=== PATIENT | female | born 1975 | race Caucasian/White ===

== ENCOUNTER 2018-05-18 09:04 | Outpatient (REF) | payer MEDICAID, SELFPAY ==
[2018-05-20 18:16] LABS: Tissue Transglutaminase Ab IgA <1.2 U/mL; Tissue Transglutaminase Ab IgG <1.2 U/mL
== END 2018-05-18 09:24 ==
LOC: NCHCN 09:04
PROVIDERS: PCP Family Medicine; Visit Provider Family Medicine
DX: K58.9 Irritable bowel syndrome, unspecified (principal); K21.9 Gastro-esophageal reflux disease without esophagitis
CPT/HCPCS: 83516

== ENCOUNTER 2018-08-31 12:43 | Outpatient (REF) | payer MEDICAID, SELFPAY ==
[2018-08-31 20:06] LABS: HCT 40.6 % (36.0-46.0); Mean Corp. HGB Concentration 34.5 g/dL (32.0-36.0); Mean Corpuscular Volume 95.8 fL (80-95); Mean Platelet Volume 11.2 fL (8.0-11.0); Platelet Count 333 x1000/uL (130-400); RBC 4.24 m/cumm (4.00-5.20); RBC Distribution Width 14.8 % (11.7-14.6); White Blood Cell Count 8.38 k/cumm (4.4-10.8)
[2018-08-31 20:16] LABS: ALT 16 U/L (12-78); AST 15 U/L (15-37); Albumin 4.3 g/dL (3.4-5.0); Alkaline Phosphatase 110 U/L (46-116); Anion Gap 13.8 mmol/L (3-11); BUN 6 mg/dL (7-18); Bilirubin, Total 0.5 mg/dL (0.2-1.0); CO2 21.2 mmol/L (21.0-32.0); CREATININE 0.73 mg/dL (0.55-1.02); Calcium 9.3 mg/dL (8.5-10.1); Chloride 104 mmol/L (98-107); Glucose 91 mg/dL (70-100); Lipase 90 U/L (73-393); Potassium 4.8 mmol/L (3.5-5.1); Sodium 139 mmol/L (136-145); Total Protein 7.3 g/dL (6.4-8.2)
== END 2018-08-31 13:03 ==
LOC: NCHCN 12:43
PROVIDERS: PCP Family Medicine; Visit Provider Family Medicine
DX: R10.11 Right upper quadrant pain (principal)
CPT/HCPCS: 80053; 83690; 85027

== ENCOUNTER 2019-04-19 09:18 | Outpatient (REF) | payer MEDICAID, SELFPAY ==
[2019-04-19 17:30] LABS: HCT 39.3 % (36.0-46.0); HGB 13.4 g/dL (12.0-15.5); Mean Corp. HGB Concentration 34.1 g/dL (32.0-36.0); Mean Corpuscular Hemoglobin 33.4 pg (27.0-33.0); Platelet Count 311 x1000/uL (130-400); RBC 4.01 m/cumm (4.00-5.20); RBC Distribution Width 13.7 % (11.7-14.6); White Blood Cell Count 9.37 k/cumm (4.4-10.8)
[2019-04-19 17:42] LABS: ALT 13 U/L (14-59); AST 13 U/L (15-37); Albumin 4.1 g/dL (3.4-5.0); Alkaline Phosphatase 79 U/L (46-116); Anion Gap 10.3 mmol/L (3-11); BUN 7 mg/dL (7-18); Bilirubin, Total 0.6 mg/dL (0.2-1.0); CO2 23.7 mmol/L (21.0-32.0); CREATININE 0.78 mg/dL (0.55-1.02); Chloride 109 mmol/L (98-107); Glucose 94 mg/dL (74-106); Potassium 4.7 mmol/L (3.5-5.1); Sodium 143 mmol/L (136-145); Total Protein 6.9 g/dL (6.4-8.2)
== END 2019-04-19 09:38 ==
LOC: NCHCN 09:18
PROVIDERS: PCP Family Medicine; Visit Provider Family Medicine
DX: R25.2 Cramp and spasm (principal); R06.02 Shortness of breath
CPT/HCPCS: 80053; 85027

== ENCOUNTER 2019-07-04 19:45 | Outpatient (REF) | payer MEDICAID, SELFPAY ==
[2019-07-04 19:12] LABS: TSH 1.87 uIU/mL (0.36-3.74)
[2019-07-06 05:06] LABS: Vitamin D 25 Total 18.5 ng/ml (30-100)
== END 2019-07-04 20:05 ==
LOC: NCHCN 19:45
PROVIDERS: PCP Family Medicine; Visit Provider Nurse Practitioner Psychiatric/Mental Health
DX: F41.8 Other specified anxiety disorders (principal)
CPT/HCPCS: 82306; 84443

== ENCOUNTER 2019-10-04 10:44 | Outpatient (REF) | payer MEDICAID, SELFPAY ==
[2019-10-05 10:01] LABS: HIV-1/2 Ag & Ab Screen Negative (Negative)
[2019-10-05 10:07] LABS: Hepatitis C Ab w Rflx HCV PCR Negative (Negative)
== END 2019-10-04 11:04 ==
LOC: NCHCN 10:44
PROVIDERS: PCP Family Medicine; Visit Provider Family Medicine
DX: F11.20 Opioid dependence, uncomplicated (principal); Z11.4 Encounter for screening for human immunodeficiency virus [HIV]; Z11.59 Encounter for screening for other viral diseases; Z11.3 Encounter for screening for infections with a predominantly sexual mode of transmission
CPT/HCPCS: 86803; 87389

== ENCOUNTER 2020-10-02 09:39 | Outpatient (REF) | payer MEDICAID, SELFPAY ==
--- NOTE | 2020-10-02 09:00 | SKI_PTH ---
PATIENT: Kelsey Dietz LOC: [facility] U#:[id number] AGE/SX: 45/F ROOM: RE10/02/[address]: Rhiannon Dorantes : 1975 BED: DIS: 10/02/2020 SPEC #: [id number] RECD: 10/02/20 16:02 STATUS: SUSHIL REED #: [id number] MYLES: 10/02/20 09:[address]: Rhiannon Dorantes DEPT: Surgical Specimen RECD BY: Annie Weinstein Tissues: 1 - SKIN CYST/TAG/DEBRIDEMENT 2 - SKIN CYST/TAG/DEBRIDEMENT Procedures: GROSS AND MICRO LEVEL 3 SKIN LEVEL 4 Comments: [id number]
== END 2020-10-02 09:40 | disposition home or self-care (01) ==
LOC: NCHCN 09:39
PROVIDERS: PCP Family Medicine; Visit Provider Family Medicine
DX: B07.8 Other viral warts (principal); A63.0 Anogenital (venereal) warts; L91.8 Other hypertrophic disorders of the skin; N89.8 Other specified noninflammatory disorders of vagina
CPT/HCPCS: 88304; 88305

== ENCOUNTER 2020-10-14 01:17 | Outpatient (CLI) | payer MEDICAID, SELFPAY ==
--- NOTE | 2020-10-14 | DI.MRI_ITS ---
Exam(s) MR CERVICAL SPINE WO EXAM: MR CERVICAL SPINE WO CLINICAL HISTORY: PARESTHESIA,R20.9,BILAT ARM WEAKNESS,R53.1,ACHINESS TECHNIQUE: Multiplanar multisequence MRI of the cervical spine was performed without intravenous con trast. COMPARISON: There are no plain films of the cervical spine available time this MRI interpretation FINDINGS: CERVICOMEDULLARY JUNCTION: Intact with no evidence of cerebellar tonsillar ectopia. No obvious abnor mality of the odontoid process. No evidence of Chiari 1 malformation. CERVICAL SPINAL CORD: There is no abnormal signal in the cervical spinal cord and no evidence of foca l cord atrophy nor focal cord swelling. No evidence of demyelinating plaques in the cervical spinal cord OSSEOUS:There are no cervical fractures evident. No significant osseous lesions in the cervical vert ebrae. INDIVIDUAL LEVELS: C2-3: No disc herniation nor central canal stenosis. No foraminal stenosis. No facet arthropathy. C3-4: No disc herniation nor central canal stenosis.No facet arthropathy. No foraminal stenosis. C4-5: No disc herniation nor central canal stenosis.No facet arthropathy. No foraminal stenosis C5-6: Normal disc height and signal. No disc herniation or central canal stenosis. No foraminal jose elias nosis. No facet arthropathy C6-7: Normal disc height and signal. No disc herniation or central canal stenosis. No facet arthrop athy. No foraminal stenosis. C7-T1: No disc herniation nor central canal stenosis. No facet arthropathy.No foraminal stenosis. IMPRESSION: 1. No significant findings on this MRI scan of the cervical spine. 2. No evidence of disc herniation, canal stenosis, or foraminal stenosis. 3. No evidence of demyelinating disease in the cervical spinal cord. DATA REPOSITORY:
== END 2020-10-14 01:37 ==
PROVIDERS: PCP Family Medicine; Visit Provider Family Medicine
DX: R20.0 Anesthesia of skin (principal); M79.601 Pain in right arm; M79.602 Pain in left arm; M62.81 Muscle weakness (generalized)
CPT/HCPCS: 72141

== ENCOUNTER 2020-10-30 10:07 | Outpatient (REF) | payer MEDICAID, SELFPAY ==
--- NOTE | 2020-10-30 08:20 | PAPFT_PTH ---
PATIENT: Kelsey Dietz LOC: [facility] #:[id number] AGE/SX: 45/F ROOM: RE10/30/[address]: Rhiannon Dorantes : 1975 BED: DIS: 10/30/2020 SPEC #: [id number] RECD: 10/31/20 13:01 STATUS: SUSHIL RELaney #: [id number] MYLES: 10/30/20 08:[address]: Rhiannon Dorantes DEPT: [facility] Cytology RECD BY: Annie Weinstein Tissues: 1 - CX/ENDOCX FOR PAP SMEARS Procedures: PAP THIN PREP/UVM Screening HPV DNA PROBE Comments: [id number] (CHLAMYDIA/GC)
[2020-11-01 14:29] LABS: Chlamydia Result Negative (Negative); GC Result Negative (Negative)
== END 2020-10-30 10:08 | disposition home or self-care (01) ==
LOC: NCHCN 10:07
PROVIDERS: PCP Family Medicine; Visit Provider Family Medicine
DX: Z11.3 Encounter for screening for infections with a predominantly sexual mode of transmission (principal); Z12.4 Encounter for screening for malignant neoplasm of cervix; Z11.51 Encounter for screening for human papillomavirus (HPV)
CPT/HCPCS: 87491; 87591; 88142; 87624

== ENCOUNTER 2021-04-14 16:56 | Outpatient (REF) | payer MEDICAID, SELFPAY ==
[2021-04-14 18:41] LABS: HCT 35.9 % (36.0-46.0); HGB 12.4 g/dL (11.2-15.7); MCH 32.2 pg (27.0-33.0); MCHC 34.5 % (32.0-36.0); MCV 93.2 fL (80-95); MPV 11.7 fL (8.0-11.0); Platelet Count 305 10^3/uL (130-400); RBC 3.85 10^6/uL (3.93-5.22); RDW 13.9 % (11.7-14.6); RDW-SD 47.4 fL; WBC 8.71 10^3/uL (4.4-10.8)
[2021-04-14 18:55] LABS: ALT 16 U/L (14-59); AST 12 U/L (15-37); Albumin 4.3 g/dL (3.4-5.0); Alkaline Phosphatase 72 U/L (46-116); Anion Gap 13.3 mmol/L (3-11); BUN 6 mg/dL (7-18); Bilirubin, Total 0.5 mg/dL (0.2-1.0); CO2 22.7 mmol/L (21.0-32.0); CREATININE 0.8 mg/dL (0.55-1.02); Calculated LDL 78 mg/dL (<100); Chloride 107 mmol/L (98-107); Cholesterol 137 mg/dL (<200); Glucose 87 mg/dL (74-106); HDL Cholesterol 43 mg/dL (40-60); Potassium 3.6 mmol/L (3.5-5.1); Sodium 143 mmol/L (136-145); Total Protein 7.1 g/dL (6.4-8.2); Triglyceride 81 mg/dL (<150)
[2021-04-14 19:35] LABS: Amylase 73 U/L (25-115)
[2021-04-17 02:00] LABS: Vitamin D 25 Total 15.3 ng/mL (30-100)
== END 2021-04-14 16:57 | disposition home or self-care (01) ==
LOC: NCHCN 16:56
PROVIDERS: PCP Family Medicine; Visit Provider Family Medicine
DX: R10.9 Unspecified abdominal pain (principal); Z87.19 Personal history of other diseases of the digestive system
CPT/HCPCS: 80053; 80061; 82306; 85027; 82150

== ENCOUNTER 2021-04-29 00:12 | Outpatient (CLI) | payer MEDICAID, SELFPAY ==
[2021-04-29] MEDS: Breeza Beverage 473 ML BTL PO ×2 (09:08→09:09)
[2021-04-29] MEDS: Omnipaque 350 MG/ML 50 ML BTL PO (09:08)
[2021-04-29] MEDS: Omnipaque 350 MG/ML 100 ML BTL IJ (10:01)
[2021-04-29] MEDS: Normal Saline Flush 10 ML SYR IVP (10:02)
--- NOTE | 2021-04-29 10:10 | DI.CT_ITS ---
Exam(s) CT ABDOMEN PELVIS W EXAM: CT ABDOMEN PELVIS W CLINICAL HISTORY: HX PANCREATITIS Z87.19 ABD PAIN R10.9 TECHNIQUE: Imaging Protocol: Axial computed tomography images with coronal and sagittal reformatted images were created and reviewed CONTRAST MATERIAL: Intravenous: Omnipaque 350 Contrast volume:100 mL Oral: Yes COMPARISON: No exams were available for comparison FINDINGS: ABDOMEN: Lung Bases: Normal where visualized. Liver: Normal density. No measurable mass. Portal, Superior Mesenteric, and Splenic Veins: Unremarkable. Gallbladder and Biliary Tract: Status post cholecystectomy. No significant biliary ductal dilatation . Pancreas: There are calcifications throughout the pancreas suggestive of chronic pancreatitis. There is a 0.9 cm calcification in the head of the pancreas. It may be intraductal. There is dilatation of the pancreatic duct within the distal body and tail. The pancreatic duct proximal to the calcific ation is normal in caliber. Spleen: Normal. Adrenals: No masses seen. Kidneys: Normal size, contour and axis. There is a 5 mm nonobstructing calculus in the lower pole of the left kidney. There is a 7 mm simple cyst in the superior pole of the left kidney. No follow-up is recommended. Abdominal Aorta: Abdominal portion non-dilated. Atherosclerosis. Bowel: No obstruction or bowel wall thickening. Appendix is unremarkable. Peritoneal Cavity: No ascites, collection or mesenteric inflammatory response. No free air. Lymph Nodes: Within normal limits. Bones: Within normal limits for the patient's age. Soft Tissues: Unremarkable. PELVIS: Bladder: Symmetric distention, no gross wall thickening. Reproductive Organs: There is an IUD in good position. Reproductive organs are otherwise unremarkabl e. Lymph Nodes: Within normal limits. Bones: Within normal limits for the patient's age. IMPRESSION: 1. Calcifications within the pancreas suggestive of a chronic pancreatitis. There is a 0.9 cm calcif ication in the head of the pancreas. It may be intraductal. There is dilatation of the pancreatic d uct distally in the body and tail. The pancreatic duct proximal to the calcification is normal calib er. MRCP may be considered for further evaluation. 2. Status post cholecystectomy. No biliary ductal dilatation. RADIATION DOSE DELIVERED: 727.88mGy.cm Total DLP DATA REPOSITORY: All CT scans at this facility are submitted to the National Radiology Data Registry (NRDR) Dose Index Registry (DIR) with the [employer] (ACR). RADIATION OPTIMIZATION: All CT scans at this facility use at least one of these dose optimization te chniques: automated exposure control; mA and/or kV adjustment per patient size (includes targeted exa ms where dose is matched to clinical indication); or iterative reconstruction.
== END 2021-04-29 00:32 ==
PROVIDERS: PCP Family Medicine; Visit Provider Family Medicine
DX: R10.9 Unspecified abdominal pain (principal); Z87.19 Personal history of other diseases of the digestive system; K86.89 Other specified diseases of pancreas
CPT/HCPCS: 74177; J3490; Q9967

== ENCOUNTER 2021-08-20 09:15 | Outpatient (REF) | payer MEDICAID, SELFPAY ==
[2021-08-21 14:02] LABS: Vitamin D 25 Total 27.6 ng/mL (30-100)
[2021-08-21 14:46] LABS: Vitamin B12 154 pg/mL (193-986)
[2021-08-21 18:19] LABS: Folate 6.3 ng/mL (See Note)
== END 2021-08-20 09:16 | disposition home or self-care (01) ==
LOC: NCHCN 09:15
PROVIDERS: PCP Family Medicine; Visit Provider Family Medicine
DX: E55.9 Vitamin D deficiency, unspecified (principal)
CPT/HCPCS: 82306; 82607; 82746

== ENCOUNTER 2021-10-15 20:44 | Outpatient (REF) | payer MEDICAID, SELFPAY ==
[2021-10-15 19:17] LABS: HCT 37.6 % (36.0-46.0); HGB 12.9 g/dL (11.2-15.7); MCH 31.9 pg (27.0-33.0); MCHC 34.3 % (32.0-36.0); MCV 93 fL (80-95); MPV 11.1 fL (8.0-11.0); Platelet Count 268 10^3/uL (130-400); RBC 4.05 10^6/uL (3.93-5.22); RDW 13.7 % (11.7-14.6); RDW-SD 47.3 fL; WBC 8.25 10^3/uL (4.4-10.8)
[2021-10-15 20:13] LABS: Vitamin B12 469 pg/mL (193-986)
[2021-10-15 20:19] LABS: Folate > 20.0 ng/mL (8.6-20.0)
[2021-10-22 09:28] LABS: Methylmalonic Acid 0.11 nmol/mL (<=0.40)
== END 2021-10-15 20:45 | disposition home or self-care (01) ==
LOC: NCHCN 20:44
PROVIDERS: PCP Family Medicine; Visit Provider Family Medicine
DX: E53.8 Deficiency of other specified B group vitamins (principal); R53.83 Other fatigue
CPT/HCPCS: 80186; 85027; 82607; 82746

== ENCOUNTER 2022-08-25 02:16 | Outpatient (CLI) | payer MEDICAID, SELFPAY ==
--- NOTE | 2022-08-25 07:30 | DI.MAMMO_ITS ---
Exam(s) MAMMO SCREENING EXAM: MAMMO SCREENING CLINICAL HISTORY: SCREENING, Z12.39 TECHNIQUE: Mammograms were interpreted according to the usual protocol including computer analysis w [employer] CAD system, tomosynthesis and C-view imaging. COMPARISON: 2018 FINDINGS: The breasts are composed of heterogeneously dense fibroglandular densities, Breast Density category C . No suspicious masses or suspicious microcalcifications are seen. No skin thickening or abnormal axillary lymph nodes are seen. There has been no significant change from prior exam. IMPRESSION: BI-RADS Category 1, Negative mammogram. Yearly screening mammography is recommended. Breast Density Category C, heterogeneously Dense. The mammogram demonstrates the patient's breast tissue is dense. Dense breast tissue is very common a nd is not abnormal but dense breast tissue can make it harder to find cancer on a mammogram. Also, de nse breast tissue may increase breast cancer risk. This information about the result of the mammogram report was provided to the patient to raise their awareness. Use this report when you speak with the patient about their risks for breast cancer, which includes their family history. At that time, you may recommend additional screening tests (Ultrasound or MRI) as they might be useful based on their r isk. A negative radiographic report should not delay biopsy if a dominant or clinically suspicious mass is present. Up to ten percent of cancers are not identified on mammography. A negative report may reinforce clinical impression. Adenosis and dense breasts may obscure an underlying neoplasm. False positive reports average 6 to 10%.
== END 2022-08-25 02:36 ==
LOC: DI 02:17
PROVIDERS: PCP Family Medicine; Visit Provider Family Medicine
DX: Z12.31 Encounter for screening mammogram for malignant neoplasm of breast (principal)
CPT/HCPCS: 77063; 77067

== ENCOUNTER 2023-04-21 19:42 | Outpatient (REF) | payer MEDICAID, SELFPAY ==
[2023-04-21 20:24] LABS: MCH 31.2 pg (27.0-33.0); MCHC 34.3 % (32.0-36.0); MCV 91 fL (80-95); Platelet Count 268 10^3/uL (130-400); RBC 3.85 10^6/uL (3.93-5.22); RDW 14.5 % (11.7-14.6); RDW-SD 48.1 fL; WBC 9.61 10^3/uL (4.4-10.8)
[2023-04-21 20:58] LABS: Ferritin 26 ng/mL (8-252); TSH (W/Ref FT4) 1.81 uIU/mL (0.36-3.74); Vitamin B12 827 pg/mL (193-986)
[2023-04-21 21:00] LABS: Folate > 20.0 ng/mL (8.6-20.0)
== END 2023-04-21 19:43 | disposition home or self-care (01) ==
LOC: NCHCN 19:42
PROVIDERS: PCP Family Medicine; Visit Provider Family Medicine
DX: D64.9 Anemia, unspecified (principal)
CPT/HCPCS: 85027; 82607; 82728; 82746; 84443

== ENCOUNTER 2024-01-31 01:20 | Outpatient (CLI) | payer MEDICAID, SELFPAY ==
--- NOTE | 2024-01-31 | DI.MAMMO_ITS ---
Exam(s) MAMMO SCREENING EXAM: MAMMO SCREENING CLINICAL HISTORY: SCREENING, Z12.39 TECHNIQUE: Mammograms were interpreted according to the usual protocol including computer analysis w [employer] CAD system, tomosynthesis and C-view imaging. COMPARISON: 2017 and 2022 FINDINGS: The breasts are composed of heterogeneously dense fibroglandular densities, Breast Density category C . No suspicious masses or suspicious microcalcifications are seen. No skin thickening or abnormal axillary lymph nodes are seen. There has been no significant change from prior exams. IMPRESSION: BI-RADS Category 1, Negative mammogram. Yearly screening mammography is recommended. Breast Density Category C, heterogeneously Dense. The mammogram demonstrates the patient's breast tissue is dense. Dense breast tissue is very common a nd is not abnormal but dense breast tissue can make it harder to find cancer on a mammogram. Also, de nse breast tissue may increase breast cancer risk. This information about the result of the mammogram report was provided to the patient to raise their awareness. Use this report when you speak with the patient about their risks for breast cancer, which includes their family history. At that time, you may recommend additional screening tests (Ultrasound or MRI) as they might be useful based on their r isk. A negative radiographic report should not delay biopsy if a dominant or clinically suspicious mass is present. Up to ten percent of cancers are not identified on mammography. A negative report may reinforce clinical impression. Adenosis and dense breasts may obscure an underlying neoplasm. False positive reports average 6 to 10%.
== END 2024-01-31 01:40 ==
LOC: DI 01:21
PROVIDERS: PCP Family Medicine; Visit Provider Family Medicine
DX: Z12.31 Encounter for screening mammogram for malignant neoplasm of breast (principal)
CPT/HCPCS: 77063; 77067

== ENCOUNTER 2024-04-19 14:04 | Outpatient (REF) | payer MEDICAID, SELFPAY ==
--- OUTSIDE RECORDS SUMMARY | 2024-04-19 14:09 | XMS_ITS | Encounter Summary ---
[place] [address] Care Team Providers Care Business Enterprise Officer Name Role Phone Rhiannon Dorantes MD Primary Care Provider [phone] Encounter Details Date Type Department Care Team (Late st Contact Info) Description 07/21/2022 Telephone [place] [phone] Dejah Tovar Social History Tobacco Use Types Packs/Day Years Used Date Smoking Tobacco: Every Day Cigarettes 0.8 25 Smokeless Tobacco: Never Alcohol Use Standard Drinks/Week Comments No 0 (1 standard drink = 0.6 oz pur e alcohol) Sex and Gender Information Value Date Recorded Sex Assigned at Not on file Gender Identity Not on file Sexual Orientation Not on file documented as of this encounter Miscellaneous Notes * Telephone Encounter - Dejah Tovar - 07/21/2022 7:48 AM EST Inbound/Outbound: OUTBOUND Spoke to Patient/Left Message: LVM Notes: LVM for patient to schedule gif or telel with ERIS Thomas per nursing Return calls can be handled by: Any Gastro Mess Cook documented in this encounter Plan of Treatment Not on file documented as of this encounter Visit Diagnoses Not on filedocumented in this encounter Care Teams Business Enterprise Officer Relationship Specialty Start Date End Date Rhiannon Dorantes MD [facility] [address] [place] [address] PCP - General 04/15/10 documented as of this encounter
--- OUTSIDE RECORDS SUMMARY | 2024-04-19 14:09 | XMS_ITS | Encounter Summary ---
Author Organization [facility] Address [address] [place] [address] Care Team Providers Care News Intern Name Role Phone Rhiannon Dorantes MD Primary Care Provider [phone] Encounter Details Date Type Department Care Team (Late st Contact Info) Description 11/18/2016 Results Only [facility] [phone] Rhiannon Dorantes MD [address] [phone] Social History Tobacco Use Types Packs/Day Years Used Date Smoking Tobacco: Never Assessed Comments Unknown Sex and Gender Information Value Date Recorded Sex Assigned at Not on file Legal Sex Female 18:05 EST Gender Identity Not on file Sexual Orientation Not on file documented as of this encounter Plan of Treatment Not on file documented as of this encounter Procedures Procedure Name Priority Date/Time Associated Diagnosis Comments PAP TEST- RESULT ONLY Routine 11/18/2016 0:00 EDT documented in this encounter Results * PAP TEST- RESULT ONLY (11/18/2016 0:00 EDT) Pathology Report: CYTOPATHOLOGY REPORT Reports generated via electronic interface contain original data; however they are lacking the format of the original report. Caution should be taken when reading/interpreti ng unformatted reports. Name: ? KELSEY DIETZ ? Accession #: ? [id number] ? : ? 1975 (Age: 41) ??F ?Collect Date: ? 11/18/2016 ? Location: ? [facility] ? Receive Date: ? 11/20/2016 ? Provider: RHIANNON DORANTES MD Copy to: ? Final Report SPECIMEN ADEQUACY ? Satisfactory for Evaluation - transformation zone component present GENERAL CATEGORIZATION ? Negative for Intraepithelial Lesion or Malignancy ?? Last Menstrual Period: 2016 Hormonal/Contracep tive status: None Specimen/Source: ??Pap Test, Cervix, ThinPrep Imaging System with manual evaluation Document reviewed and electronically signed by: ? Kenna Connell, CT(ASCP) ? Report ??Date: 12/01/2016 12:34 HPV with Pap Test ? Date Ordered: ? 12/01/2016 ? Status: ?? Signed Out ?Date Complete: ? 12/02/2016 ? By: ??System Interface ? Date Reported: ? 12/02/2016 ? Interpretation RESULT: Negative for HPV. No E6 or E7 mRNA is detected from HPV types 16,18,31,33,35, 39,45,51,52,56,58, 59,66, and 68 by job recruiter mediated amplification. Comments Document reviewed and electronically signed by: ? System Interface ? Report date: 12/02/2016 By the signature above, the attending physician certifies that he/she has personally conducted a gross and/or microscopic examination of the described specimens and rendered or confirmed the above diagnosis. End of Report [facility] 11/18/2016 11/20/2016 us Rhiannon Dorantes MD PATHOLOGY ORDERABLES Final Resul t [facility] [address] [place] [address] documented in this encounter Visit Diagnoses Not on filedocumented in this encounter Care Teams News Intern Relationship Specialty Start Date End Date Rhiannon Dorantes MD [address] [place] [phone] PCP - General 03/28/15 documented as of this encounter
--- OUTSIDE RECORDS SUMMARY | 2024-04-19 14:09 | XMS_ITS | Clinical Summary ---
Author Organization [facility] Address [address] [place] [address] Care Team Providers Care Family Service Center Director Name Role Phone Rhiannon Dorantes MD Primary Care Provider [phone] Social History Tobacco Use Types Packs/Day Years Used Date Smoking Tobacco: Never Assessed Comments Unknown Sex and Gender Information Value Date Recorded Sex Assigned at Not on file Legal Sex Female 18:05 EST Gender Identity Not on file Sexual Orientation Not on file Plan of Treatment Health Maintenance Due Date Last Done Comments Hepatitis B Vaccine (1 of 3 - 19+ 3-dose series) 04/29 COVID-19 Vaccine ( season) 2024 Hepatitis C Screen Completed 10/04/2019 Procedures Procedure Name Priority Date/Time Associated Diagnosis Comments HEPATITIS C AB W REFLEX TO HCV RNA BY PCR Routine 10/04/2019 9:45 EDT from Last 3 Months or Most Recently Relevant to Health Maintenance Results * HEPATITIS C AB W REFLEX TO HCV RNA BY PCR (10/04/2019 9:45 EDT) Hep C Antibody Negative Negative 10/05/2019 10:02 EDT [facility] Blood VENOUS BLOOD / Unknown 10/04/2019 9:45 EDT 10/04/2019 21:08 EDT us Provider Outr Resulting Lab CHEMISTRY & BLOOD GA S ORDERABLES Final Result [facility] [address] [place] [address] from Last 3 Months or Most Recently Relevant to Health Maintenance Insurance MEDICAID ACO [place] Care Teams Family Service Center Director Relationship Specialty Start Date End Date Rhiannon Dorantes MD [address] [place] [phone] PCP - General 03/28/15
--- OUTSIDE RECORDS SUMMARY | 2024-04-19 14:09 | XMS_ITS | Referral Summary ---
Author Organization [facility] Address [address] [place] [address] Care Team Providers Care Embroidery Specialist Name Role Phone Rhiannon Dorantes MD Primary Care Provider [phone] Social History Tobacco Use Types Packs/Day Years Used Date Smoking Tobacco: Never Assessed Comments Unknown Sex and Gender Information Value Date Recorded Sex Assigned at Not on file Legal Sex Female 18:05 EST Gender Identity Not on file Sexual Orientation Not on file Plan of Treatment Not on file Procedures Procedure Name Priority Date/Time Associated Diagnosis Comments HEPATITIS C AB W REFLEX TO HCV RNA BY PCR Routine 10/04/2019 9:45 EDT from Last 3 Months or Most Recently Relevant to Health Maintenance Results * HEPATITIS C AB W REFLEX TO HCV RNA BY PCR (10/04/2019 9:45 EDT) Hep C Antibody Negative Negative 10/05/2019 10:02 EDT [facility] Blood VENOUS BLOOD / Unknown 10/04/2019 9:45 EDT 10/04/2019 21:08 EDT us Provider Outr Resulting Lab CHEMISTRY & BLOOD GA S ORDERABLES Final Result [facility] [address] [place] [address] from Last 3 Months or Most Recently Relevant to Health Maintenance Insurance MEDICAID ACO [place] Care Teams Embroidery Specialist Relationship Specialty Start Date End Date Rhiannon Dorantes MD [address] [place] [phone] PCP - General 03/28/15
--- OUTSIDE RECORDS SUMMARY | 2024-04-19 14:09 | XMS_ITS | Encounter Summary ---
Author Organization [facility] Address [address] [place] [address] Care Team Providers Care Domestic Freight Forwarder Name Role Phone Unavailable Primary Care Provider Unavailabl e Encounter Details Date Type Department Care Team (Late st Contact Info) Description 05/27/[address] [facility] - [facility] [address] [place] [address] Rhiannon Dorantes MD [address] [phone] Social History Tobacco Use Types [...] Procedure Name Priority Date/Time Associated Diagnosis Comments HPV DETECTION, HIGH RISK TYPES Routine 05/27/2009 10:18 EST CYTOPATHOLOGY Routine 05/27/2009 0:00 EST documented in this encounter Results * HUMAN PAPILLOMA VIRUS DNA TEST (05/27/2009 10:18 EST) Specimen Description Cervix, ThinPrep vial [facility] Result Negative for HPV types 16, 18, 31, 33, 35, 39, 45, 51, 52, 56, 58, 59, and 68. [facility] Report Status Final 06/05/2009 [facility] 05/27/2009 10:1 8 EST 05/30/2009 10:18 EST us Rhiannon Dorantes MD MICROBIOLOGY - GENERAL ORDERABLE S Final Result [facility] [address] [place] [address] * CYTOPATHOLOGY (05/27/2009 0:00 EST) Pathology Report: CYTOPATHOLOGY REPORT ? Reports generated via electronic interface contain original data; ? however they are lacking the format of the original report. ? Caution should be taken when reading/interpreti ng unformatted reports. ? Name: ? KELSEY DIETZ ? Accession #: ? [id number] ? : ? 1975 (Age: 34) ??F ?Collect Date: ? 05/27/2009 ? Location: ? [facility] ? Receive Date: ? 05/28/2009 ? Provider: ?RHIANNON TORIBIO MD ? Copy to: ? Specimen/Source: ?Pap Test, Cervix/Endocervix, ThinPrep Imaging System ? with manual evaluation ? Last Menstrual Period: ? Hormonal/Contracep tive Status: ? Intrauterine device ? Other: ? HPVDX - HPV testing requested regardless of diagnosis on current ThinPrep Pap ?? test. ? SPECIMEN ADEQUACY ? Satisfactory for Evaluation ? - transformation zone component present ? GENERAL CATEGORIZATION ? Negative for Intraepithelial Lesion or Malignancy ? Document reviewed and electronically signed by: ? Cat Nash, SCT(ASCP) ? Report Date: ??05/29/2009 11:10 ? End of Report ? [facility] 05/27/2009 05/28/2009 us Rhiannon Dorantes MD PATHOLOGY ORDERABLES Final Resul t Performing Organization Address [facility]/State[facility] Phone Number [facility] [address] [place] [address] documented in this encounter Visit Diagnoses Not on filedocumented in this encounter
--- OUTSIDE RECORDS SUMMARY | 2024-04-19 14:09 | XMS_ITS | Encounter Summary ---
Author Organization [facility] Address [address] [place] [address] Care Team Providers Care Bulk Gas Specialist Name Role Phone Rhiannon Dorantes MD Primary Care Provider [phone] Encounter Details Date Type Department Care Team (Latest Contact Info) Description 10/31/2020 Lab Requisition [facility] Pathology & Laboratory Medicine - [address] [address] Rhiannon Dorantes MD [address] [place] [phone] Encounter for general adult medical examination without abnormal findings; Encounter for screening for malignant neoplasm of cervix; Encounter for screening for human papillomavirus (HPV) Social History Tobacco Use Types Packs/Day Years [...] Name Priority Date/Time Associated Diagnosis Comments PAP TEST Today 10/30/2020 8:20 EDT Encounter for general adult medical examination without abnormal findings Encounter for screening for malignant neoplasm of cervix Encounter for screening for human papillomavirus (HPV) CHLAMYDIA/N. GONORRHOEAE AMPLIFIED NUCLEIC ACID, THINPREP Today 10/30/2020 8:20 EDT HPV DNA DETECTION WITH GENOTYPING, PCR Today 10/30/2020 8:20 EDT Encounter for general adult medical examination without abnormal findings Encounter for screening for malignant neoplasm of cervix Encounter for screening for human papillomavirus (HPV) documented in this encounter Results * HUMAN PAPILLOMAVIRUS (HPV) DETECTION-HIGH RISK TYPES (10/30/2020 8:20 EDT) HPV other High Risk types, PCR Negative Negative 11/12/2020 15:06 EDT [facility] Comment:No E6 or E7 mRNA is detected from HPV types 16,18,31,33,35,39,45,51,52,56,58,59,66, and 68 by solvent mixer mediated amplification. Papanicolaou smear specimen (specimen) CERVIX UTERI STRUCTURE / Unknown 10/30/2020 8:20 EDT 11/11/2020 11:59 EDT us Rhiannon Dorantes MD MICROBIOLOGY - GENERAL ORDERABLE S Final Result [facility] [address] [place] [address] * PAP TEST (10/30/2020 8:20 EDT) Specimens A. Cervix and/or Endocervix , ThinPrep Imaging System with Manual Evaluation 11/12/2020 15:06 [facility] Specimen Adequacy Satisfactory for Evaluation - transformation zone component present 11/12/2020 15:06 [facility] General Categorization Negative for intraepithelial lesion or malignancy 11/12/2020 15:06 [facility] Attestation . 11/12/2020 15:06 [facility] at 1506 Clinical History See below 11/13/19 15:06 [facility] HPV The result for the Human Papillomavirus (HPV) Detection-High Risk Types is Negative. No E6 or E7 mRNA is detected from HPV types 16,18,31,33,35,39 ,45,51,52,56,58,5 9,66, and 68 by solvent mixer mediated amplification.Kimberly ting was performed on specimen [id number] and was resulted on 11/12/2020 1502 EDT by CAROLINA, LAB INSTRUMENT RESULTS IN 11/12/2020 15:06 EDT [facility] Performing Lab [facility] 11/12/2020 15:06 EDT [facility] Scanned Images 11/12/2020 15:06 EDT [facility] Papanicolaou smear specimen (specimen) CERVIX UTERI STRUCTURE / Unknown 10/30/2020 8:20 EDT 11/01/2020 16:12 EDT Rhiannon Dorantes MD PATHOLOGY ORDERABLES Final Resul t [facility] [address] [place] [address] * CHLAMYDIA/N. GONORRHOEAE AMPLIFIED RNA, THINPREP (10/30/2020 8:20 EDT) Neisseria gonorrhoeae Result Negative Negative 11/01/2020 14:23 EDT [facility] Chlamydia trachomatis Result Negative Negative 11/01/2020 14:23 EDT [facility] Papanicolaou smear specimen (specimen) CERVIX UTERI STRUCTURE / Unknown 10/30/2020 8:20 EDT 11/01/2020 8:23 EDT Rhiannon Dorantes MD MICROBIOLOGY - GENERAL ORDERABLE S Final Result [facility] [address] [place] [address] documented in this encounter Visit Diagnoses Diagnosis Encounter for general adult medical examination without abnormal findings Unspecified general medical examination Encounter for screening for malignant neoplasm of cervix Screening for malignant neoplasm of the cervix Encounter for screening for human papillomavirus (HPV) Special screening examination for human papillomavirus (HPV) documented in this encounter Care Teams Bulk Gas Specialist Relationship Specialty Start Date End Date Rhiannon Dorantes MD [address] [place] [phone] PCP - General 03/28/15 documented as of this encounter
--- OUTSIDE RECORDS SUMMARY | 2024-04-19 14:09 | XMS_ITS | Encounter Summary ---
Author Organization [facility] [place] [address] Care Team Providers Care Timekeeping Supervisor Name Role Phone Rhiannon Dorantes MD Primary Care Provider [phone] Reason for Visit * Auth/Cert Specialty Diagnoses / Procedures Referred By Contac t Referred To Contact Diagnoses hx pancreatitis. Procedures PRO ENDOSCOPIC US EXAM, ESOPH UPPER EUS- ENDOSCOPIC ULTRASOUND Referral ID Status Reason Start Date Expiration Date Visits Re quested Visits Authorized [id number] 1 1 Encounter Details Date Type Department Care Team (Latest Contact Info) Description 10/01/2021 7:53 AM EDT - 10/01/2021 9:44 AM EDT Hospital Encounter [place] [address] Chan Raya MD [facility] [place] [address] Discharge Disposition: Home Social History Tobacco Use Types Packs/Day Years Used Date Smoking Tobacco: Every Day Cigarettes 0.8 25 Smokeless Tobacco: Never Alcohol Use Standard Drinks/Week Comments No 0 (1 standard drink = 0.6 oz pur e alcohol) Sex and Gender Information Value Date Recorded Sex Assigned at Not on file Gender Identity Not on file Sexual Orientation Not on file documented as of this encounter Last Filed Vital Signs Vital Sign Reading Time Taken Comments Blood Pressure 130/80 10/01/2021 8:09 AM EDT Pulse 84 10/01/2021 8:09 AM EDT Temperature 36.2 ??C (97.2 ??F) 10/01/2021 8:09 AM ED T Respiratory Rate 16 10/01/2021 8:09 AM EDT Oxygen Saturation 99% 10/01/2021 8:09 AM EDT Inhaled Oxygen Concentration - - Weight 68.9 kg (152 lb) 10/01/2021 8:09 AM EDT Height 160 cm (5' 3) 10/01/2021 8:09 AM EDT Body Mass Index 26.93 10/01/2021 8:09 AM EDT documented in this encounter Medications at Time of Discharge Medication Sig Dispensed Refills Start Date End Date lansoprazole (PREVACID) 30 mg Capsule, Delayed Release(E.C.) TAKE 1 CAPSULE BY MOUTH EVERY DAY 04/19/2021 ergocalciferoL, vitamin D2, (vitamin D2) 50,000 unit Capsule 3 times a week for 12 weeks 04/21/2021 valACYclovir (VALTREX) 1 gram Tablet TAKE 1 TABLET BY MOUTH DAILY TO PREVENT FREQUENT COLD SORES 05/28/2021 ProAir HFA 90 mcg/actuation HFA Aerosol Inhaler INHALE TWO PUFFS BY MOUTH EVERY 4 HOURS NEEDED WITH SPACER 04/30/2021 Dulera 200-5 mcg/actuation HFA Aerosol Inhaler INHALE 2 PUFFS BY MOUTH TWICE DAILY 05/06/2021 buprenorphine-naloxone (SUBOXONE) 8-[address] 2 mg of opiate under the tongue daily. Creon 24,000-76,000 -120,000 unit Capsule, Delayed Release(E.C.)Indication s:Acute pancreatitis, unspecified complication status, unspecified pancreatitis type TAKE TWO CAPSULES BY MOUTH BEFORE MEALS AND ONE CAPSULE BEFORE SNACKS. MAX 10 CAPSULES 300 capsule 3 09/29/2021 02/24/2022 LIPASE/PROTEASE/AMYLASE (PANCREASE ORAL) Take by mouth. 1 to 3 capsules, 12 to 14 times per day 06/24/2022 documented as of this encounter Progress Notes * Tanna Hunter 08/19/2021 9:06 AM EDT Kelsey Dietz [id number] Diagnosis/Indication: hx pancreatitis. 1. Have you ever had a/an Upper EUS before? No If yes, did you have any problems with the procedure? No What type of sedation was used: None 2. Do you take any blood thinners or have you been diagnosed with a bleeding disorder that increases your risk of bleeding with procedures? No 3. Do you have a Pacemaker or Defibrillator device? No 4. Are you a diabetic? No 5. Do you have any Allergies to Eggs, Latex or Medications? Yes: EDH 6. Do you take any Oral Iron Supplements (Including multi-vitamins)? Yes (Multivitamin) 7. Do you have a history of three or more abdominal surgeries? No 8. Have you had a problem with sedation or anesthesia? No 9. Do you use a c-pap machine or oxygen tank? Neither 10. Do you take prescription narcotic pain medications, including suboxone or methodone? Yes suboxone 11. Do you have a preference regarding the gender of your provider? No Preference 12. Is there any other information you would like to us to note for the provider and nursing team who will perform your case? No 13. Say to patient: You must have a responsible green party who will drive you to your procedure, stay [place] for the entire duration of your procedure, and drive you home from your procedure? *Please Verify the height and weight, and adjust if height and/or weight have changed* There is no height or weight on file to calculate BMI. *Delete if not needed* Height: 5' 5 Weight: 142 lb BMI: 23.6 Age:46 y.o. documented in this encounter H&P Notes * Chan Raya MD - 10/01/2021 8:43 AM EDT Procedure: eus Indication: chronic pancreatitis History of Present Illness: Kelsey Dietz is a 46 y.o. woman with chronic pancreatitis here for eus Patient Active Problem List Diagnosis Code ??? IBS (irritable bowel syndrome) K58.9 Medications: Reviewed in EDH Allergies Allergen Reactions ??? Amoxicillin Trihydrate Other (See Comments) swelling of face Social History/Family History: Reviewed in EDH. No changes Exam: Patient Vitals for the past 24 hrs: Temp Pulse Resp BP SpO2 O2 Device 10/01/21 0809 36.2 ??C (97.2 ??F) 84 16 130/80 99 % RA Axox3, nad Anicteric, MMM CTAB RRR, no m/r/g abd soft nt nd +bs Assessment and Plan: Proceed with EGD: EUS: ASA Grade: ASA 2 - Patient with mild systemic disease with no functional limitations Mallampati score:II (soft palate, uvula, fauces visible) Sedation plan: MAC Risks and benefits of the procedure were discussed with the patient. Consent has been signed. Chan Raya MD documented in this encounter Miscellaneous Notes * Op Note - Chan Raya MD - 10/01/2021 8:56 AM EDT DH Operative Note Patient Name: Kelsey Dietz : [id number] MR#: [id number] Case Date: 10/01/2021 Surgeon: Surgeon(s) and Role: * Chan Raya MD - Primary Procedure(s): UPPER EUS- ENDOSCOPIC ULTRASOUND EGD WITH BIOPSY (WRVU 2.49) Please see Provation report for details. documented in this encounter Plan of Treatment Not on file documented as of this encounter Procedures Procedure Name Priority Date/Time Associated Diagnosis Comments SURGICAL PATHOLOGY REPORT Routine 10/01/2021 9:00 AM EDT SPECIMEN TO PATHOLOGY Routine 10/01/2021 9:00 AM EDT Upper Gi Endoscopy, Biopsy ([id number]) 10/01/2021 8:50 AM EDT Acute pancreatitis, unspecified complication status, unspecified pancreatitis type Endoscopic Us Exam, Esoph ([id number]) 10/01/2021 8:50 AM EDT Acute pancreatitis, unspecified complication status, unspecified pancreatitis type UPPER EUS-ENDOSCOPIC ULTRASOUND Routine 10/01/2021 8:35 AM EDT documented in this encounter Results * Surgical Pathology Report (10/01/2021 9:00 AM EDT) Final Diagnosis [id number] ? Location: 4T; EA07; A The signing pathologist has (i) examined the relevant preparation(s) for the specimen(s) and (ii) rendered or confirmed the diagnosis(es). . ?Surgical Pathology DIAGNOSIS A - Gastric bx r/o H-pylori, biopsy: - ??Gastric antral and fundic gland mucosa within normal limits. - H. pylori organisms are not seen. Electronically signed by: ?Isabelle TAVERAS PhD, Evi Verified: ??10/02/2021 14:35 ??Pathologist Performed at: ??-[facility] Dept. of Pathology, [place], [place] SPECIMEN(S) SUBMITTED A - Gastric bx r/o H-pylori, biopsy (1) CLINICAL INFORMATION Epigastric pain SPECIMEN PROCESSING A - Labeled/Fixativ e: Gastric biopsies R/O H. pylori, formalin. Quantity/Size: Two, 0.3 cm. Tissue Description: Soft, clark-pink tissues. Sections/Proces sing: Submitted en toto ??in 1 cassette labeled A1. ??pps 10/02/2021 2:35 PM EDT [facility] GI Biopsy 10/01/2021 9:00 AM EDT 10/01/2021 9:00 AM EDT Chan Raya MD PATHOLOGY/CYTOLOGY O PERFECTO [facility] [place] [address] * Specimen to Pathology (10/01/2021 9:00 AM EDT) AP Specimen 10/01/2021 9:00 AM EDT 10/01/2021 9:00 AM EDT Narrative [facility] - 10/01/2021 9:00 AM EDT Specimen requisition ordered. ??Separate Pathology report to follow Chan Raya MD PATHOLOGY/CYTOLOGY Haja RDALEIDABLES [facility] [place] [address] * UPPER EUS-ENDOSCOPIC ULTRASOUND (10/01/2021 8:35 AM EDT) UPPER ENDOSCOPIC ULTRASOUND [facility] Endoscopy Procedure Date: 10/01/2021 8:35 AM ? Patient Name: Kelsey Dietz ? [facility]: [id number] ? Date of : 1975 ? Age: 46 ? Order #: [id number] ? Instrument Name: [id number] ? Procedure: ? Upper EUS Indications: ? Suspected chronic pancreatitis Providers: ? Nellie Hill ? YONATAN Melendez, Javier Redd MD: ?Rhiannon Dorantes MD Medicines: ? Propofol per Anesthesia Complications: ? No immediate complications. Procedure: ? Pre-Anesthesia Assessment: ? - Prior to the procedure, a History ? and Physical was performed, and ? patient medications and allergies ? were reviewed. The patient is ? competent. The risks and benefits ? of the procedure and the sedation ? options and risks were discussed ? with the patient. All questions ? were answered and informed consent ? was obtained. Patient ? identification and proposed ? procedure were verified by the ? physician in the pre-procedure ? area. Mental Status Examination: ? alert and oriented. Airway ? Examination: normal oropharyngeal ? airway and neck mobility. ? Respiratory Examination: clear to ? auscultation. CV Examination: ? normal. Prophylactic Antibiotics: ? The patient does not require ? prophylactic antibiotics. Prior ? Anticoagulants: The patient has ? taken no anticoagulant or ? antiplatelet agents. ASA Grade ? Assessment: II - A patient with ? mild systemic disease. After ? reviewing the risks and benefits, ? the patient was deemed in ? satisfactory condition to undergo ? the procedure. The anesthesia plan ? was to use monitored anesthesia ? care (MAC). Immediately prior to ? administration of medications, the ? patient was re-assessed for ? adequacy to receive sedatives. The ? heart rate, respiratory rate, ? oxygen saturations, blood pressure, ? adequacy of pulmonary ventilation, ? and response to care were monitored ? throughout the procedure. The ? physical status of the patient was ? re-assessed after the procedure. ? The procedure, indications, ? benefits, risks and alternatives ? were explained to the patient. ? Specifically discussed were ? potential complications including, ? but not limited to, bleeding, ? perforation, infection, missing a ? cancer, and adverse medication ? reactions.The Endosonoscope was ? introduced through the and advanced ? to the. The Endoscope was ? introduced through the and advanced ? to the. The patient tolerated the ? procedure well. ? Findings: ? ENDOSCOPIC FINDING: : ? The examined esophagus was normal. ? Patchy mild inflammation characterized by erythema ? was found in the gastric antrum. Biopsies were taken ? with a cold forceps for histology and Helicobacter ? pylori testing. ? The examined duodenum was normal. ? ENDOSONOGRAPHIC FINDING: : ? Two hyperechoic foci measuring up to nine mm in ? diameter suggestive of stones were found in the ? pancreatic head. ? The pancreatic parenchyma had hyperechoic foci ? without shadowing and hyperechoic strands. The ? pancreatic duct had duct dilation. The pancreatic ? duct measured up to 6 mm in diameter. ? There was no sign of significant endosonographic ? abnormality in the common bile duct. The maximum ? diameter of the duct was 5 mm. ? Moderate Sedation: ? Not applicable - See Anesthesia documentation Impression: ?- Normal esophagus. ? - Gastritis. Biopsied. ? - Normal examined duodenum. ? - Findings suggestive of pancreatic ? stones were identified in the ? pancreatic head (One Major A, 2 ? minor [place]). ? - There was no sign of significant ? pathology in the common bile duct. Recommendation: ?- Discharge patient to home. ? - Resume previous diet. ? - Await path results. ? - Return to GI office. Discuss ? option of ESWL for symptomatic ? pancreaticolithiasis ? Attending Participation: ? I personally performed the entire procedure. ? Chan Raya, 10/01/2021 9:22:46 AM Number of Addenda: 0 Note Initiated On: 10/01/2021 8:35 AM PROVATION 10/01/2021 8:35 AM EDT Rhiannon Dorantes MD GENERAL SURGICAL ORD ERABLES PROVATION documented in this encounter Visit Diagnoses Not on filedocumented in this encounter Administered Medications Inactive Administered Medications - up to 3 most recent administrations Medication Order MAR Action Action Date Dose Rate Site lactated ringers infusion 100 mL/hr, Intravenous, CONTINUOUS, Starting on Wed10/01/21 at 0830, Until Wed10/01/21 at 0936, Endoscopy (Day of Procedure) Restarted 10/01/2021 9:03 AM EDT New Bag 10/01/2021 8:19 AM EDT 100 mL/hr 100 mL/hr documented in this encounter Active and Recently Administered Medications Times are shown in EDT. Continuous Medication Order 09/29/2021 09/30/2021 10/01/2021 lactated ringers infusion (CANCELED) 100 mL/hr, Intravenous, CONTINUOUS, Starting on Wed10/01/21 at 0830, Until Wed10/01/21 at 0936, Endoscopy (Day of Procedure) 0819 (New Bag - Prov ider: Desiree Sharma RN)0902 (Paused - Provider: Shannon Matson CRNA - Comment: Switch to gravity)0903 (Restarted - Provider: Shannon Matson CRNA) documented in this encounter Care Teams Timekeeping Supervisor Relationship Specialty Start Date End Date Rhiannon Dorantes MD [address] [place] [address] PCP - General 04/15/10 documented as of this encounter
--- OUTSIDE RECORDS SUMMARY | 2024-04-19 14:09 | XMS_ITS | Encounter Summary ---
Author Organization [facility] Address [facility] [place] [address] Care Team Providers Care Addresser Name Role Phone Rhiannon Dorantes MD Primary Care Provider [phone] Reason for Visit * Reason Comments Medication Refill Encounter Details Date Type Department Care Team (Late st Contact Info) Description 02/24/2022 [place] [address] Cathy Thomas PA [facility] [place] [address] Acute pancreatitis, unspecified complication status, unspecified pancreatitis type Social History Tobacco Use Types Packs/Day Years [...] documented as of this encounter Visit Diagnoses Diagnosis Acute pancreatitis, unspecified complication status, unspecified pancreatitis type documented in this encounter Care Teams Addresser Relationship Specialty Start Date End Date Rhiannon Dorantes MD [address] [place], [place] [id number] PCP - General 04/15/10 documented as of this encounter
--- OUTSIDE RECORDS SUMMARY | 2024-04-19 14:09 | XMS_ITS | Encounter Summary ---
Author Organization [facility] Address [address] [place] [address] Care Team Providers Care Culvert Installer Name Role Phone Rhiannon Dorantes MD Primary Care Provider [phone] Encounter Details Date Type Department Care Team (Late st Contact Info) Description 08/21/2021 Lab Requisition [facility] Pathology & Laboratory Medicine - [address] [id number] Outr Resulting Lab, Provider Social History Tobacco Use Types Packs/Day Years [...] Procedure Name Priority Date/Time Associated Diagnosis Comments FOLATE Routine 08/20/2021 8:50 EDT documented in this encounter Results * FOLATE (08/20/2021 8:50 EDT) Folate 6.3 See Note ng/mL 08/21/2021 18:13 EDT [facility] Comment: Reference Ranges for Folate: Deficient: ?< 3.4 ng/mL Indeterminate: ??3.4 - 5.4 ng/mL Normal: ? > 5.4 ng/mL The results of this assay can be falsely elevated due to the consumption of Biotin. Blood VENOUS BLOOD / Unknown 08/20/2021 8:50 EDT 08/21/2021 17:31 EDT us Provider Outr Resulting Lab CHEMISTRY & BLOOD GA S ORDERABLES Final Result Performing Organization Address City/State/[facility] Co de Phone Number [facility] [address] [place] [address] documented in this encounter Visit Diagnoses Not on filedocumented in this encounter Care Teams Culvert Installer Relationship Specialty Start Date End Date Rhiannon Dorantes MD [address] [place] [phone] PCP - General 03/28/15 documented as of this encounter
--- OUTSIDE RECORDS SUMMARY | 2024-04-19 14:09 | XMS_ITS | Clinical Summary ---
Author Organization [facility] Address [facility] [place] [address] Care Team Providers Care Apprentice Painter Brush Name Role Phone Rhiannon Dorantes MD Primary Care Provider [phone] Allergies Active Allergy Reactions Criticality Noted Date Comments Amoxicillin Trihydrate Other (See Comments) High swelling of face Medications Medication Sig Dispensed Refills Start Date End Date Status buprenorphine-naloxo ne (SUBOXONE) 8-[address] 2 mg of opiate under the tongue daily. Active lansoprazole (PREVACID) 30 mg Capsule, Delayed Release(E.C.) TAKE 1 CAPSULE BY MOUTH EVERY DAY 04/19/2021 Active ergocalciferoL, vitamin D2, (vitamin D2) 50,000 unit Capsule 3 times a week for 12 weeks 04/21/2021 Active valACYclovir (VALTREX) 1 gram Tablet TAKE 1 TABLET BY MOUTH DAILY TO PREVENT FREQUENT COLD SORES 05/28/2021 Active ProAir HFA 90 mcg/actuation HFA Aerosol Inhaler INHALE TWO PUFFS BY MOUTH EVERY 4 HOURS NEEDED WITH SPACER 04/30/2021 Active Dulera 200-5 mcg/actuation HFA Aerosol Inhaler INHALE 2 PUFFS BY MOUTH TWICE DAILY 05/06/2021 Active Creon 24,000-76,000 -120,000 unit Capsule, Delayed Release(E.C.)Indicat ions:Acute pancreatitis, unspecified complication status, unspecified pancreatitis type TAKE 2 CAPSULES BY MOUTH BEFORE MEALS AND 1 CAPSULE BEFORE SNACKS. MAXIMUM DAILY DOSE IS 10 CAPSULES 300 capsule 3 06/24/2022 Active Active Problems Problem Noted Date Diagnosed Date IBS (irritable bowel syndrome) 12/30/2010 Social History Tobacco Use Types Packs/Day Years Used Date Smoking Tobacco: Every Day Cigarettes 0.8 25 Smokeless Tobacco: Never Tobacco Cessation:Ready to Q uit: No Alcohol Use Standard Drinks/Week Comments No 0 (1 standard drink = 0.6 oz pur e alcohol) Sex and Gender Information Value Date Recorded Sex Assigned at Not on file Gender Identity Not on file Sexual Orientation Not on file Last Filed Vital Signs Vital Sign Reading [...] Mass Index 26.93 10/01/2021 8:09 AM EDT Plan of Treatment Health Maintenance Due Date Last Done Comments CT Colonography 1975 Colonoscopy 1975 Colorectal Cancer Screening 1975 FIT DNA 1975 FIT 1975 Sigmoidoscopy (10 year) with FIT yearly 1975 Sigmoidoscopy 1975 Pneumococcal Vaccine: At-Risk 5-64yrs (1 of 2 - PCV) 1 06/30/1981 HIV screen 1994 Hepatitis C Screening 1994 Lipid Screening 1994 Hepatitis B vaccine (0-59 yrs) (1) 1995 Tetanus/Diphtheria/Pertussis Vaccines (1 - Tdap) 04/29 HPV test 2006 PAP Smear 2006 Breast Cancer Share Decision Needed 2016 Breast Cancer screening 2016 Diabetes Screening (HgbA1C or Glucose) 2016 Covid-19 Vaccine (1 - season) 2024 Influenza (Flu) vaccine (1 o f 1 - Influenza standard series) 01/23/2024 Care Teams Apprentice Painter Brush Relationship Specialty Start Date End Date Rhiannon Dorantes MD [facility] [address] [place] [address] PCP - General 04/15/10
--- OUTSIDE RECORDS SUMMARY | 2024-04-19 14:09 | XMS_ITS | Encounter Summary ---
Author Organization [facility] Address [address] [place] [address] Care Team Providers Care Digital Product Specialist Name Role Phone Unavailable Primary Care Provider Unavailabl e Encounter Details Date Type Department Care Team ([facility] st Contact Info) Description 07/04/2002 Results Only [facility] - Maple conversion [address] [place] [address] Hyacinth Lees MD [address] [place] [id number] Social History Tobacco Use Types Packs/Day Years [...] Procedure Name Priority Date/Time Associated Diagnosis Comments CYTOPATHOLOGY Routine 07/04/2002 0:00 EST documented in this encounter Results * CYTOPATHOLOGY (07/04/2002 0:00 EST) Pathology Report: CYTOPATHOLOGY REPORT Reports generated via electronic interface contain original data; however they are lacking the format of the original report. Caution should be taken when reading/interpreti ng unformatted reports. Name: ? KELSEY DIETZ ? Accession #: ? [id number] : ? 1975 (Age: 27) ??F ?Collect Date: ? 07/04/2002 Location: ? [facility] ? Receive Date: ? 07/06/2002 Provider: ?HYACINTH LEES MD Copy to: ? Specimen/Source: ?ThinPrep Pap Test, Cervix/Endocervix Last Menstrual Period: ? 06/14/02 Hormonal/Contracep tive Status: ? Yes ? SPECIMEN ADEQUACY ? Satisfactory for Evaluation - transformation zone component present GENERAL CATEGORIZATION ? Negative for Intraepithelial Lesion or Malignancy ? Document reviewed and electronically signed by: ? Cat Nash, SCT(ASCP) ? Report Date: ??07/07/2002 11:21 End of Report NIKA TORREZ 07/04/2002 07/06/2002 us Hyacinth Lees MD PATHOLOGY ORDERABLES Final Resu lt NIKA TORREZ [address] [place] [address] documented in this encounter Visit Diagnoses Not on filedocumented in this encounter
--- OUTSIDE RECORDS SUMMARY | 2024-04-19 14:09 | XMS_ITS | Encounter Summary ---
Author Organization [facility] Address [facility] [place] [address] [place] [address] Care Team Providers Care Parer Name Role Phone Rhiannon Dorantes MD Primary Care Provider [phone] Encounter Details Date Type Department Care Team (Latest Contact Info) Description 08/26/2022 9:30 AM EDT TH Visit (TeleHealth) [place] [address] Cathy Thomas PA [facility] [place] [address] Acute pancreatitis, unspecified complication status, unspecified pancreatitis [...] on file documented as of this encounter Progress Notes * Cathy Thomas PA - 08/26/2022 9:30 AM EDT Images from the original note were not included. GASTROENTEROLOGY TELEHEALTH PROGRAM - NEW PATIENT VISIT Chief Complaint: Kelsey Dietz is a 47 y.o. patient referred for consultation by Dr. Encinas ref. provider found for abdominal pain History of Present Illness: 46-year-old female referred to gastroenterology for abdominal pain. She has a history of pancreatitis in 2004 related to alcohol abuse and possible gallstone pancreatitis prompting a cholecystectomy. She discontinued drinking alcohol 16 years ago. She did not have problems since then, until this most recent episode. She has mild pain in December which lasted two weeks. She had a second episode in March which was severe. She had diarrhea and stearrhea. She did have a CT scan revealing changes consistent with chronic pancreatitis. This was 1 week after onset of pain. +nausea but no vomiting. She was instructed to restart creon . Both episodes occurred after a vaccine, one within a day of her flu shot and one episode a week after her COVID vaccine She does have a history of substance abuse disorder and is on buprenorphine Currently: abdominal pain has resolved. She continues to have some steatorrhea. No abdominal bloating. She is having 1 BM per day Father- hx of pancreatitis second to etoh abuse 08/26/22 Since her last visit, she did complete EUS She tells me she is much better than when she saw me last Since starting creon- she has had significant improvement in gas, bloating, pain and diarrhea She is taking 2 creon with meals and 1 with snacks She has gained 31lbs since starting creon She occasionally has some pressure under her left pressure She is feeling the best she has had felt 10 years Impression: ?- Normal esophagus. ?- Gastritis. Biopsied. ?- Normal examined duodenum. ?- Findings suggestive of pancreatic ?stones were identified in the ?pancreatic head (One Major A, 2 ?minor [place]). ?- There was no sign of significant ?pathology in the common bile duct. Recommendation: ?- Discharge patient to home. ?- Resume previous diet. ?- Await path results. ?- Return to GI office. Discuss ? option of ESWL for symptomatic ?pancreaticolithiasis Review of systems: 14-point review of systems reviewed and negative except as above. Medications: ??? Creon 24,000-76,000 -120,000 unit Capsule, Delayed Release(E.C.) ??? lansoprazole (PREVACID) 30 mg Capsule, Delayed Release(E.C.) ??? ergocalciferoL, vitamin D2, (vitamin D2) 50,000 unit Capsule ??? valACYclovir (VALTREX) 1 gram Tablet ??? ProAir HFA 90 mcg/actuation HFA Aerosol Inhaler ??? Dulera 200-5 mcg/actuation HFA Aerosol Inhaler ??? buprenorphine-naloxone (SUBOXONE) 8-2 mg Subl Allergies: is allergic to amoxicillin trihydrate. Past Medical History: Past Surgical History: has a past surgical history that includes Upper Gi Endoscopy, Biopsy (37799)(N/A, 09/18/2015); Endoscopic Us Exam, Esoph (47455) (N/A, 10/01/2021); and Upper Gi Endoscopy, Biopsy (75486) (N/A, 10/01/2021). Family History: denies family history of IBD, or celiac disease in mother father or other family members Father- colon cancer at 56 Social History: Tobacco: 1/2- 1 pack per day History of etoh and substance abuse. Sober for 16 years. Physical exam: No Physical Examination performed during this telemedicine visit Laboratory studies, imaging, and procedures (my review of prior records): CT AP 04/2021 Assessment/Plan: 46-year-old female seen in follow-up for pancreatitis. We reviewed her EUS as above. Since she saw me last she is feeling great. She is taking Creon 2 tablets with meals and 1 with snacks. She tells me she has felt the best she has felt in 10 years. No bloating, nausea or diarrhea. She does have vague discomfort at times and will try increasing her Creon when she is eating more document meals to see if this is any positive effect but overall she is very comfortable with her current symptoms. She will continue on Creon and will reach out if this becomes cost prohibitive and we can begin the patient assistance program. At this time, I would not recommend lithotripsy for pancreatic stones given her great symptom improvement though we certainly can consider this in the future, if needed. All of her questions today were answered and she is comfortable with this plan. She understands I would like to see her on a yearly basis while I am prescribing her medications ERIS [facility] [place] [phone] documented in this encounter Plan of Treatment Not on file documented as of this encounter Visit Diagnoses Diagnosis Acute pancreatitis, unspecified complication status, unspecified pancreatitis type documented in this encounter Care Teams Parer Relationship Specialty Start Date End Date Rhiannon Dorantes MD [address] [place] [address] PCP - General 04/15/10 documented as of this encounter
--- OUTSIDE RECORDS SUMMARY | 2024-04-19 14:09 | XMS_ITS | Encounter Summary ---
Author Organization [facility] Address [address] [place] [address] Care Team Providers Care Lens Grinder Apprentice Name Role Phone Rhiannon Dorantes MD Primary Care Provider [phone] Encounter Details Date Type Department Care Team (Late st Contact Info) Description 10/04/2019 Lab Requisition [facility] Pathology & Laboratory Medicine - [address] [id number] Outr Resulting Lab, Provider Social History Tobacco [...] Procedure Name Priority Date/Time Associated Diagnosis Comments HIV 1/2 ANTIGEN AND ANTIBODY, 4TH GENERATION Routine 10/04/2019 9:45 EDT documented in this encounter Results * HIV 1/2 ANTIGEN AND ANTIBODY, 4TH GENERATION (10/04/2019 9:45 EDT) HIV 1 and 2 Antibody/p24 Antigen, 4th Generation Negative Negative 10/05/2019 9:56 EDT [facility] Comment: If acute HIV-1 infection is suspected in a high risk ??patient, submit plasma specimen for HIV-1 RNA quantitation test. Fourth Generation assay performed on the Siemens official.fmaur. Blood VENOUS BLOOD / Unknown 10/04/2019 9:45 EDT 10/04/2019 21:08 EDT us Provider Outr Resulting Lab IMMUNOLOGY AND SEROL OGY ORDERABLES Final Result [facility] [address] [place] [address] documented in this encounter Visit Diagnoses Not on filedocumented in this encounter Care Teams Lens Grinder Apprentice Relationship Specialty Start Date End Date Rhiannon Dorantes MD [address] [place] [phone] PCP - General 03/28/15 documented as of this encounter
--- OUTSIDE RECORDS SUMMARY | 2024-04-19 14:09 | XMS_ITS | Encounter Summary ---
Author Organization [facility] Address [address] [place] [address] Care Team Providers Care Tool Crib Attendant Name Role Phone Unavailable Primary Care Provider Unavailabl e Encounter Details Date Type Department Care Team (Late st Contact Info) Description 11/26/2006 Results Only [facility] - Maple conversion [address] [place] [address] Rhiannon Dorantes MD [address] [place] [phone] Social History Tobacco Use Types Packs/Day [...] Priority Date/Time Associated Diagnosis Comments CYTOPATHOLOGY Routine 11/26/2006 0:00 EDT documented in this encounter Results * CYTOPATHOLOGY (11/26/2006 0:00 EDT) Pathology Report: CYTOPATHOLOGY REPORT Reports generated via electronic interface contain original data; however they are lacking the format of the original report. Caution should be taken when reading/interpreti ng unformatted reports. Name: ? KELSEY DIETZ ? Accession #: ? [id number] : ? 1975 (Age: 31) ??F ?Collect Date: ? 11/26/2006 Location: ? [facility] ? Receive Date: ? 11/29/2006 Provider: ?RHIANNON DORANTES MD Copy to: ? Specimen/Source: ?ThinPrep Pap Test, Cervix/Endocervix, processed on [employer] ThinPrep Imaging System, with manual evaluation Last Menstrual Period: ? Other: ? HPVA - HPV testing requested if ASC-US on the current ThinPrep Pap test. ? SPECIMEN ADEQUACY ? Satisfactory for Evaluation - transformation zone component present GENERAL CATEGORIZATION ? Negative for Intraepithelial Lesion or Malignancy ? Document reviewed and electronically signed by: ? JAMESON Britton(ASCP) ? Report Date: ??12/03/2006 13:20 End of Report NIKA TORREZ 11/26/2006 11/29/2006 us Rhiannon Dorantes MD PATHOLOGY ORDERABLES Final Resul t [facility] [address] [place] [address] documented in this encounter Visit Diagnoses Not on filedocumented in this encounter
--- OUTSIDE RECORDS SUMMARY | 2024-04-19 14:09 | XMS_ITS | Encounter Summary ---
Author Organization [facility] Address [facility] [place] [place] [address] Care Team Providers Care Wellness Coordinator Name Role Phone Rhiannon Dorantes MD Primary Care Provider [phone] Reason for Visit * Reason Comments Medication Refill Encounter Details Date Type Department Care Team (Late st Contact Info) Description 09/27/2021 Ref[place] [address] Cathy Thomas PA [facility] [address] Acute pancreatitis, unspecified complication status, unspecified pancreatitis type Social History Tobacco Use Types Packs/Day Years Used Date Smoking Tobacco: Every Day Cigarettes 1 25 Smokeless Tobacco: Never Alcohol Use Standard [...] type documented in this encounter Care Teams Wellness Coordinator Relationship Specialty Start Date End Date Rhiannon Dorantes MD [address] [place], [place] [id number] PCP - General 04/15/10 documented as of this encounter
--- OUTSIDE RECORDS SUMMARY | 2024-04-19 14:09 | XMS_ITS | Encounter Summary ---
Author Organization [facility] Address [facility] [place] [address] Care Team Providers Care Physical Education Professor Name Role Phone Rhiannon Dorantes MD Primary Care Provider [phone] Reason for Visit * Auth/Cert Specialty Diagnoses / Procedures Referred By Contac t Referred To Contact Diagnoses hx pancreatitis. Procedures PRO ENDOSCOPIC US EXAM, ESOPH UPPER EUS- ENDOSCOPIC ULTRASOUND Referral ID Status Reason Start Date Expiration Date Visits Re quested Visits Authorized [id number] 1 1 Encounter Details Date Type Department Care Team (Late st Contact Info) Description 10/01/2021 8:47 AM EDT Anesthesia [place] [address] Virgil Shi MD [facility] [place] [place] [address] Shannon Matson CRNA [facility] [place] [address] Anesthesia Record Procedure Summary Procedure Name Responsible Anesthesiologist Anesthesia Start Time Anesthesia Stop Time UPPER EUS- ENDOSCOPIC ULTRASOUND (WRVU 3.47) (Trunk) Virgil Shi MD 10/01/21 0847 10/01/21 0915 Events Date Time Event Comment 10/01/2021 0815 0847 Start 0849 AN Verify 0849 An Start Data 0854 An Induction 6 L/min O2 via POM. Smooth IV induction; spontaneous ventilation maintained. 0855 Anesthesia Ready 0856 Procedure Start 0909 an stop data 0914 Recovery or ICU Handoff Izabel ent care was transferred to the destination unit staff after review of the patient's medical history, current anesthetic/surgical status and plan, according to the Provider Handoff Checklist. 914 Stop Patient awake, alert, and oriented; actively conversing with staff. Spontaneous ventilation without issue. VSS. Full report given to APPARATUS CLEANER. Meds Name Total IV Lidocaine 100 mg Propofol 100 mg Propofol INF 110.24 mg lactated ringers infusion 400 mL * Agents Name O2 Air N2O O2 Auxiliary Flowmeter 1 * Blood No blood administrations on file. Lines, Drains, and Airways Type Details Placement Removal (RETIRED) Peripheral IV Line - Single Lumen 10/01/21; 818; metacarpal vein (top of hand), right; njhl-sjz-anicys catheter system; 22 gauge; Sarai Fish; distraction; 10/01/21; 0935 10/01/21 08 by Desiree Sharma RN 10/01/21 09 by Ying Gillespie RN documented in this encounter Social History Tobacco Use Types Packs/Day Years Used Date Smoking Tobacco: Every Day Cigarettes 0.8 25 Smokeless Tobacco: Never Alcohol Use Standard Drinks/Week Comments No 0 (1 standard drink = 0.6 oz pur e alcohol) Sex and Gender Information Value Date Recorded Sex Assigned at Not on file Gender Identity Not on file Sexual Orientation Not on file documented as of this encounter OR Notes * Anesthesia Postprocedure Evaluation - Virgil Shi MD - 10/02/2021 5:05 PM EDT Department of Anesthesiology Post-procedure Note Patient: Kelsey Ditez Procedure Summary Date: 10/01/21 Room / Location: [facility] ENDO 3 / [facility] Anesthesia Start: 846 Anesthesia Stop: 914 Procedures: UPPER EUS- ENDOSCOPIC ULTRASOUND (N/A Trunk) EGD WITH BIOPSY (WRVU 2.49) (N/A Trunk) Diagnosis: Acute pancreatitis, unspecified complication status, unspecified pancreatitis type (hx pancreatitis.) Surgeons: Chan Raya MD Responsible Provider: Virgil Shi MD Anesthesia Type: MAC ASA Status: 2 All Anesthesia Providers: Anesthesiologist: Virgil Shi MD CMM PROGRAMMER: Shannon Matson CRNA Vitals Value Taken Time BP Temp Pulse Resp SpO2 Pain Level Patient Location: PACU/[facility] Level of Consciousness: Awake and Alert Pain Management: Satisfactory Analgesia PONV: None Cardiovascular Status: At Baseline and Hemodynamically Stable Respiratory Status: At Baseline and Room Air Postoperative Fluid Status: Intravascular EUvolemia Possible Anesthetic Complications: NONE apparent at time of evaluation Final Primary Anesthesia Type: MAC (The anesthetic type performed was the same as planned.) Comments: Virgil Shi MD * Anesthesia Preprocedure Evaluation - Virgil Shi MD - 10/01/2021 8:14 AM EDT Pre-Anesthesia Evaluation for: Kelsey Dietz a 46 y.o. female. Procedure(s): UPPER EUS- ENDOSCOPIC ULTRASOUND Patient Active Problem List Diagnosis Date Noted ??? IBS (irritable bowel syndrome) 12/30/2010 No past medical history on file. Past Surgical History: Procedure Laterality Date ??? PRO UPPER GI ENDOSCOPY, BIOPSY N/A 09/18/2015 EGD WITH BIOPSY performed by Sanjeev Garrett MD at [facility] ENDOSCOPY Social History Tobacco Use ??? Smoking status: Current Every Day Smoker Packs/day: 0.75 Years: 25.00 Pack years: 18.75 Types: Cigarettes ??? Smokeless tobacco: Never Used Substance Use Topics ??? Alcohol use: No Social History Substance and Sexual Activity Drug Use No Allergies Allergen Reactions ??? Amoxicillin Trihydrate Other (See Comments) swelling of face Medications: MAR and/or home medications have been reviewed. Physical Exam: Preprocedure Vitals Current as of 10/01/21 0814 BP: 130/80 Pulse: 84 Resp: 16 SpO2: 99 Temp: 36.2 ??C (97.2 ??F) Height: 160 cm (5' 3) (10/01/21) Weight: 68.9 kg (152 lb) (10/01/21) BMI: 26.92 IBW: 52.4 kg (115 lb 7.7 oz) Last edited 10/01/21 0809 by EP Airway Assessment: Mallampati: I TM distance: >3 FB Neck ROM: full Cardiovascular Assessment: Rhythm: regular Rate: normal (-) murmur Pulmonary Assessment: breath sounds clear to auscultation (-) wheezes pulmonary exam normal Dental Assessment: - normal exam Misc Assessment: IV access: Peripheral line Last Filed Perioperative Cognitive Screening None Anesthesia Plan: ASA 2 MAC, with a(n) intravenous induction This is a 46 y.o. Female with a pmhx significant for IBS, opioid abuse (on suboxone), prior heavy ETOH abuse,GERD, asthma (on advair and albuterol daily, well controlled per pt), anxiety and depression who presents for an EGD. Denies recent URI, denies GERD, denies CP/SOB, reports good functional tolerance (able to ambulate 2 FOS without problems), and is appropriately NPO. Plan for and risks of anesthesia discussed in detail with the pt, all questions answered, consent obtained. Plan for MAC Region - Other Informed Consent: Anesthetic plan and risks discussed with patient. Use of blood products discussed with patient who. Plan discussed with CMM PROGRAMMER. Anesthesia Screening documented in this encounter Plan of Treatment [...] 8:19 AM EDT 100 mL/hr 100 mL/hr lidocaine (pf) (Xylocaine) (20 mg/mL) 2% injection syringe Intravenous, PRN, Starting on Wed10/01/21 at 0853, Until Wed10/01/21 at 0917, Anesthesia Intra-op, Routine Given 10/01/2021 8:53 AM EDT 100 mg propofoL (Diprivan) (10 mg/mL) infusion Intravenous, CONTINUOUS PRN, Starting on Wed10/01/21 at 0855, Until Wed10/01/21 at 0917, Anesthesia Intra-op, Routine New Bag 10/01/2021 8:55 AM EDT 200 mcg/kg/min 82.68 mL/hr propofoL (Diprivan) 10 mg/mL bolus injection (Anesthesia) Intravenous, PRN, Starting on Wed10/01/21 at 0854, Until Wed10/01/21 at 0917, Anesthesia Intra-op Given 10/01/2021 8:55 AM EDT 30 mg Given 10/01/2021 8:54 AM EDT 70 mg documented in this encounter Care Teams Physical Education Professor Relationship Specialty Start Date End Date Rhiannon Dorantes MD [facility]E [facility] [address] [place] [address] PCP - General 04/15/10 documented as of this encounter
--- OUTSIDE RECORDS SUMMARY | 2024-04-19 14:09 | XMS_ITS | Encounter Summary ---
Author Organization [facility] Address [facility] [place] [address] [place] [address] Care Team Providers Care Senior Clinical Consultant Name Role Phone Rhiannon Dorantes MD Primary Care Provider [phone] Reason for Visit * Reason Comments Medication Refill Encounter Details Date Type Department Care Team (Late st Contact Info) Description 06/24/2022 Refill [place] [address] Cathy Thomas PA [facility] [place] [address] Acute pancreatitis, unspecified complication status, unspecified pancreatitis [...] type documented in this encounter Care Teams Senior Clinical Consultant Relationship Specialty Start Date End Date Rhiannon Dorantes MD [address] [place], [place] [phone] PCP - General 04/15/10 documented as of this encounter
--- OUTSIDE RECORDS SUMMARY | 2024-04-19 14:09 | XMS_ITS | Encounter Summary ---
Author Organization [facility] [place] [address] Care Team Providers Care Raking Machine Operator Name Role Phone Rhiannon Dorantes MD Primary Care Provider [phone] Reason for Visit * Auth/Cert Specialty Diagnoses / Procedures Referred By Contac t Referred To Contact Diagnoses hx pancreatitis. Procedures PRO ENDOSCOPIC US EXAM, ESOPH UPPER EUS- ENDOSCOPIC ULTRASOUND Referral ID Status Reason Start Date Expiration Date Visits Re quested Visits Authorized [id number] 1 1 Encounter Details Date Type Department Care Team (Late st Contact Info) Description 10/01/2021 8:45 AM EDT - 10/01/2021 9:45 AM EDT [place] [address] Chan Raya MD [facility] [place] [address] UPPER EUS- ENDOSCOPIC ULTRASOUND (WRVU 3.47) Social History Tobacco Use Types Packs/Day Years [...] [place] 08/19/2021 9:06 AM EDT Kelsey Dietz [id number] Diagnosis/Indication: hx pancreatitis. 1. Have you ever [...] to patient: You must have a responsible democrat who will drive you to your procedure, [...] Operative Note Patient Name: Kelsey Dietz : [id number] MR#: [id number] Case Date: 10/01/2021 Surgeon: Surgeon(s) and Role: [...] 9:00 AM EDT Upper Gi Endoscopy, Biopsy ([id number]) 10/01/2021 8:50 AM EDT Acute pancreatitis, unspecified complication status, unspecified pancreatitis type Endoscopic Us Exam, Esoph ([id number]) 10/01/2021 8:50 AM EDT Acute pancreatitis, unspecified complication status, unspecified pancreatitis type UPPER EUS-ENDOSCOPIC ULTRASOUND Routine 10/01/2021 8:35 AM EDT documented in this encounter Results * Surgical Pathology Report (10/01/2021 9:00 AM EDT) Final Diagnosis [id number] ? Location: 4T; EA07; A The signing pathologist has (i) examined the relevant preparation(s) for the specimen(s) and (ii) rendered or confirmed the diagnosis(es). . ?Surgical Pathology DIAGNOSIS A - Gastric bx r/o H-pylori, biopsy: - ??Gastric antral and fundic gland mucosa within normal limits. - H. pylori organisms are not seen. Electronically signed by: ?Isabelle TAVERAS PhD, Eiv Verified: ??10/02/2021 14:35 ??Pathologist Performed at: ??-[facility] Dept. of Pathology, [place], [place] SPECIMEN(S) SUBMITTED A - Gastric bx r/o H-pylori, biopsy (1) CLINICAL INFORMATION Epigastric pain SPECIMEN PROCESSING A - Labeled/Fixativ e: Gastric biopsies R/O H. pylori, formalin. Quantity/Size: Two, 0.3 cm. Tissue Description: Soft, clark-pink tissues. Sections/Proces sing: Submitted en toto ??in 1 cassette labeled A1. ??pps 10/02/2021 2:[address] [facility] GI Biopsy 10/01/2021 9:00 AM EDT 10/01/2021 9:00 AM EDT Chan Raya MD PATHOLOGY/CYTOLOGY O RDERABLES [facility] [place] [address] * Specimen to Pathology (10/01/2021 9:00 AM EDT) AP Specimen 10/01/2021 9:00 AM EDT 10/01/2021 9:[address] [facility] - 10/01/2021 9:00 AM EDT Specimen requisition ordered. ??Separate Pathology report to follow Chan Raya MD PATHOLOGY/CYTOLOGY O RDERABLES [facility] [place] [address] * UPPER EUS-ENDOSCOPIC ULTRASOUND (10/01/2021 8:35 AM EDT) UPPER ENDOSCOPIC ULTRASOUND [facility] Endoscopy Procedure Date: 10/01/2021 8:35 AM ? Patient Name: Kelsey Dietz ? [facility]: [id number] ? Date of : 1975 ? Age: 46 ? Order #: [id number] ? Instrument Name: [id number] ? Procedure: ? Upper EUS Indications: ? [...] head (One Major A, 2 ? minor [place]). ? - There was no sign of significant ? pathology in the common bile duct. Recommendation: ?- Discharge patient to home. ? - Resume previous diet. ? - Await path results. ? - Return to GI office. Discuss ? option of ESWL for symptomatic ? pancreaticolithiasis ? Attending Participation: ? I personally performed the entire procedure. ? Chan Ayad Raya, 10/01/2021 9:22:46 AM Number of Addenda: 0 Note Initiated On: 10/01/2021 8:35 AM PROVATION 10/01/2021 8:35 AM EDT Rhiannon Dorantes MD GENERAL SURGICAL ORD ERABLES PROVATION documented in this encounter Visit Diagnoses Diagnosis Acute pancreatitis, unspecified complication status, unspecified pancreatitis type documented in this encounter Administered Medications Inactive Administered [...] (New Bag - Prov ider: Desiree Sharma RN)09 (Paused - Provider: Shannon Matson CRNA - Comment: Switch to gravity)09 (Restarted - Provider: Shannon Matson CRNA) documented in this encounter Care Teams Raking Machine Operator Relationship Specialty Start Date End Date Rhiannon Dorantes MD [facility] [place] [facility] [address] [place] [address] PCP - General 04/15/10 documented as of this encounter
--- OUTSIDE RECORDS SUMMARY | 2024-04-19 14:09 | XMS_ITS | Encounter Summary ---
Author Organization [facility] Address [address] [place] [address] Care Team Providers Care Microbiology Teacher Name Role Phone Unavailable Primary Care Provider Unavailabl e Encounter Details Date Type Department Care Team (Late st Contact Info) Description 09/15/[address] [facility] - Maple conversion [address] [place] [address] Lucinda Mckeon, ELISSA [address] [place] [address] Social History Tobacco Use Types Packs/Day [...] Priority Date/Time Associated Diagnosis Comments CYTOPATHOLOGY Routine 09/15/2005 0:00 EDT documented in this encounter Results * CYTOPATHOLOGY (09/15/2005 0:00 EDT) Pathology Report: CYTOPATHOLOGY REPORT Reports generated via electronic interface contain original data; however they are lacking the format of the original report. Caution should be taken when reading/interpreti ng unformatted reports. Name: ? KELSEY DIETZ ? Accession #: ? [id number] : ? 1975 (Age: 30) ??F ?Collect Date: ? 09/15/2005 Location: ? [facility] ? Receive Date: ? 09/16/2005 Provider: ?LUCINDA MCKEON SECTION BEAMER Copy to: ? Specimen/Source: ?ThinPrep Pap Test, Cervix/Endocervix, processed on [employer] ThinPrep Imaging System, with manual evaluation Last Menstrual Period: ? Hormonal/Contracep tive Status: ? Depo-Provera Other: ? HPVA - HPV testing requested if ASC-US on the current ThinPrep Pap test. ? SPECIMEN ADEQUACY ? Satisfactory for Evaluation - transformation zone component present GENERAL CATEGORIZATION ? Negative for Intraepithelial Lesion or Malignancy INTERPRETATION ? Fungal organisms present morphologically consistent with Barbie species. ? Document reviewed and electronically signed by: ? JAMESON Carmona(ASCP) ? Report Date: ??09/18/2005 16:19 End of Report NIKA TORREZ 09/15/2005 09/16/2005 us Lucinda Mckeon SECTION BEAMER PATHOLOGY ORDERABLES Final R esult NIKA TORREZ [address] [place] [address] documented in this encounter Visit Diagnoses Not on filedocumented in this encounter
--- OUTSIDE RECORDS SUMMARY | 2024-04-19 14:09 | XMS_ITS | Encounter Summary ---
Author Organization [facility] Address [address] [place] [address] Care Team Providers Care Oncology Technician Name Role Phone Rhiannon Dorantes MD Primary Care Provider [phone] Encounter Details Date Type Department Care Team (Late st Contact Info) Description 10/02/2020 Lab Requisition [facility] Pathology & Laboratory Medicine - [address] [address] Rhiannon Dorantes MD [address] [address] Other hypertrophic disorders of the skin Social History Tobacco Use Types Packs/Day Years [...] Priority Date/Time Associated Diagnosis Comments SURGICAL PATHOLOGY Today 10/02/2020 9: 00 EDT Other hypertrophic disorders of the skin documented in this encounter Results * SURGICAL PATHOLOGY (10/02/2020 9:00 EDT) Final Diagnosis A. SKIN OF FOREARM, RIGHT, SHAVE BIOPSY: - Verruca vulgaris. B. SKIN OF VAGINAL AREA, BIOPSY: - Features consistent with condyloma acuminatum. 10/03/2020 14:46 EDT [facility] Attestation By the signature below, the attending physician certifies that they have 1) personally conducted a gross and/or microscopic examination of the described specimen(s), and/or personally interpreted the results of laboratory testing of the described specimen(s), and 2) personally rendered or confirmed the above diagnosis. 10/03/2020 14:46 [facility] at 1446 Microscopic Description A. The stratum corneum is thickened by compact orthohyperkeratosis with tiers of parakeratosis and foci of hemorrhage. The epidermis is hyperplastic with papillomatosis and acanthosis. The acanthotic rete ridges have an inward-bending configuration. The superficial keratinocytes have perinuclear vacuoles. The granular layer is accentuated. B. There is orthohyperkeratosis with foci of parakeratosis. The epidermis is acanthotic with low papillomatosis and anastomosing rete ridges. The superficial keratinocytes show variable degrees of perinuclear vacuolization and nuclear hyperchromasia. 10/03/2020 14:46 [facility] Clinical History A. 6 mm verrucous lesion consistent with wart vs SCCA, right forearm; present 1 year; B. Skin tag vs HPV warts, vaginal area; clinical diagnosis code: L91.8 10/03/2020 14:46 [facility] Gross Description A. Received in formalin labelled with proper patient identification (initials S, M) and skin tag forearm, right is a shave biopsy of a pearly white verrucoid papule (0.6 x 0.5 x 0.4 cm). The specimen is inked, bisected and submitted in A1. B. Received in formalin labelled with proper patient identification (initials S, M) and skin tag vaginal area is a shave biopsy of a dome-shaped clark-machado granular verrucoid papule (0.6 x 0.5 x 0.5 cm). The specimen is inked, bisected and submitted in B1. ERIS NELSON(ASCP) 10/03/2020 7:29 10/03/2020 14:46 [facility] Performing Lab [facility] 10/03/2020 14:46 [facility] Scanned Images 10/03/2020 14:46 EDT [facility] Tissue TISSUE SPECIMEN FROM SKIN / Unknown 10/02/2020 9:00 EDT 10/02/2020 22:41 EDT Tissue specimen (specimen) SPECIMEN FROM SKIN / Unknown 10/02/2020 9:00 EDT 10/02/2020 22:41 EDT us Rhiannon Dorantes MD PATHOLOGY ORDERABLES Final Resul t [facility] [address] [place] [address] documented in this encounter Visit Diagnoses Diagnosis Other hypertrophic disorders of the skin documented in this encounter Care Teams Oncology Technician Relationship Specialty Start Date End Date Rhiannon Dorantes MD [address] [place] [phone] PCP - General 03/28/15 documented as of this encounter
--- OUTSIDE RECORDS SUMMARY | 2024-04-19 14:09 | XMS_ITS | Encounter Summary ---
Author Organization [facility] Address [address] [place] [address] Care Team Providers Care Document Control Associate Name Role Phone Rhiannon Dorantes MD Primary Care Provider [phone] Encounter Details Date Type Department Care Team (Late st Contact Info) Description 10/04/2019 Lab Requisition [facility] Pathology & Laboratory Medicine - [address] [phone] Outr Resulting Lab, Provider Social History Tobacco [...] RNA BY PCR Routine 10/04/2019 9:45 EDT documented in this encounter Results * HEPATITIS C AB W REFLEX TO HCV RNA BY PCR (10/04/2019 9:45 EDT) Hep C Antibody Negative Negative 10/05/2019 10:02 EDT [facility] Blood VENOUS BLOOD / Unknown 10/04/2019 9:45 EDT 10/04/2019 21:08 EDT us Provider Outr Resulting Lab CHEMISTRY & BLOOD GA S ORDERABLES Final Result Performing Organization Address [facility]/State/ZIP Co de Phone Number [facility] [address] [place] [address] documented in this encounter Visit Diagnoses Not on filedocumented in this encounter Care Teams Document Control Associate Relationship Specialty Start Date End Date Rhiannon Dorantes MD [address] [place] [phone] PCP - General 03/28/15 documented as of this encounter
--- OUTSIDE RECORDS SUMMARY | 2024-04-19 14:09 | XMS_ITS | Encounter Summary ---
Author Organization [facility] Address [address] [place] [address] Care Team Providers Care Resist Coater Developer Name Role Phone Unavailable Primary Care Provider Unavailabl e Encounter Details Date Type Department Care Team (Late st Contact Info) Description 03/18/2005 Results Only [facility] - Maple conversion [address] [place] [address] Perry Hilton MD [address] [place] [address] Social History Tobacco Use Types Packs/Day Years [...] Priority Date/Time Associated Diagnosis Comments SURGICAL PATHOLOGY Routine 03/18/2005 0:00 EDT documented in this encounter Results * SURGICAL PATHOLOGY (03/18/2005 0:00 EDT) Pathology Report: SURGICAL PATHOLOGY REPORT Reports generated via electronic interface contain original data; however they are lacking the format of the original report. Caution should be taken when reading/interpreting unformatted reports. Name: ? KELSEY DIETZ ? Accession #: ? [id number] ? : ? 1975 (Age: 29) ??F ? Collect Date: ? 03/18/2005 ? Location: ? [facility] ? Receive Date: ? 03/19/2005 ? Provider: PERRY HILTON MD Copy to: RANDA ROONEY MD ? Final Pathologic Diagnosis: A. ?Gallbladder, cholecystectomy: 1. ?Mild chronic cholecystitis. 2. ?Cholelithiasis. B. ?Liver, biopsy: 1. ?Steatohepatitis: ? - Mildly active (grade 2 of 4). - With periportal and perisinusoidal fibrosis (stage 2 of 4). 2. ?Negative for stainable iron. Comment: ? This case was reviewed at intradepartmental consultation conference. Trichrome staining highlights periportal and perisinusoidal fibrosis. Iron staining is negative for stainable iron. ??(Dr. Theodore)/[facility] Document reviewed and electronically signed by: LAVON QUINTERO MD Report ??Date: 03/23/2005 16:42 By the signature above, the attending physician certifies that he/she has personally conducted a gross and/or microscopic examination of the described specimens and rendered or confirmed the above diagnosis. Specimen(s) Received: ? A. Gallbladder (#1) B. Liver bx Rt lobe (#2) Clinical History: ? H/O prob. ETOH; pancreatitis, RUQ pain, cholelithiasis Gross Description: ? Received in formalin labelled Dietz and #1 gallbladder is an unopened gallbladder with attached cystic duct. ??The gallbladder measures 10.0 x 3.0 cm. The serosal surface is clark-theodore, smooth and glistening. ??The mucosa is smooth, green and velvety with a wall thickness which averages 0.2 cm. ??The gallbladder contains approximately 50 cc of bile as well as two yellow, facetted, choleliths which average in size 1.0 x 1.0 cm. ??The cystic duct is patent and measures 0.6 cm in length. ??No cystic duct lymph node is appreciated. ??Carbon Lamp Cleaner sections from the gallbladder, fundus, middle and neck are submitted as (A). Received in formalin labelled Dietz and #2 liver bx is a clark, soft, fragment of tissue which measures 1.3 x 0.6 x 1.3 cm. ??The specimen is bisected and submitted as (B). ??(Dr. Jones-)/mpl End of Report NIKA TORREZ 03/18/2005 03/19/2005 8:4 5 EDT us Perry Hilton MD PATHOLOGY ORDERABLES Final Result NIKA TORREZ [address] [place] [address] documented in this encounter Visit Diagnoses Not on filedocumented in this encounter
--- OUTSIDE RECORDS SUMMARY | 2024-04-19 14:09 | XMS_ITS | Encounter Summary ---
Author Organization [facility] Address [address] [place] [address] Care Team Providers Care Reserve Operator Name Role Phone Unavailable Primary Care Provider Unavailabl e Encounter Details Date Type Department Care Team ([facility] st Contact Info) Description 10/16/2003 Results Only [facility] - Maple conversion [address] [place] [address] Hyacinth Lees MD [address] [place] [address] Social History Tobacco Use Types Packs/Day Years [...] Priority Date/Time Associated Diagnosis Comments CYTOPATHOLOGY Routine 10/16/2003 0:00 EDT documented in this encounter Results * CYTOPATHOLOGY (10/16/2003 0:00 EDT) Pathology Report: CYTOPATHOLOGY REPORT Reports generated via electronic interface contain original data; however they are lacking the format of the original report. Caution should be taken when reading/interpreti ng unformatted reports. Name: ? KELSEY DIETZ ? Accession #: ? [id number] : ? 1975 (Age: 28) ??F ?Collect Date: ? 10/16/2003 Location: ? [facility] ? Receive Date: ? 10/18/2003 Provider: ?HYACINTH LEES MD Copy to: ? Specimen/Source: ?ThinPrep Pap Test, Cervix/Endocervix Last Menstrual Period: ? 09/24/03 ? SPECIMEN ADEQUACY ? Satisfactory for Evaluation - transformation zone component present GENERAL CATEGORIZATION ? Negative for Intraepithelial Lesion or Malignancy ? Document reviewed and electronically signed by: ? JAMESON Vaca(ASCP) ? Report Date: ??10/24/2003 08:51 End of Report NIKA TORREZ 10/16/2003 10/18/2003 us Hyacinth Lees MD PATHOLOGY ORDERABLES Final Resu lt [facility] [address] [place] [address] documented in this encounter Visit Diagnoses Not on filedocumented in this encounter
--- OUTSIDE RECORDS SUMMARY | 2024-04-19 14:09 | XMS_ITS | Encounter Summary ---
Author Organization [facility] Address [address] [place] [address] Care Team Providers Care Crime Scene Specialist Name Role Phone Unavailable Primary Care Provider Unavailabl e Encounter Details Date Type Department Care Team (Late st Contact Info) Description 02/19/2005 Results Only [facility] - Maple conversion [address] [place] [address] Perry Hilton MD [address] [place] [address] Social History Tobacco Use Types Packs/Day Years [...] Date/Time Associated Diagnosis Comments SURGICAL PATHOLOGY Routine 02/19/2005 0:00 EDT documented in this encounter Results * SURGICAL PATHOLOGY (02/19/2005 0:00 EDT) Pathology Report: SURGICAL PATHOLOGY REPORT Reports generated via electronic interface contain original data; however they are lacking the format of the original report. Caution should be taken when reading/interpreti ng unformatted reports. Name: ? KELSEY DIETZ ? Accession #: ? [id number] ? : ? 1975 (Age: 29) ??F ? Collect Date: ? 02/19/2005 ? Location: ? [facility] ? Receive Date: ? 02/20/2005 ? Provider: PERRY HILTON MD Copy to: RANDA MONTELONGO MD ? Final Pathologic Diagnosis: ? Esophagus, 40 cm, biopsy: 1. ?Mucosa of the squamocolumnar junction with accentuation of rete ridges, basal cell hyperplasia, and intraepithelial lymphocytes suggestive of reflux esophagitis. 2. ?No eosinophil infiltrate identified. Document reviewed and electronically signed by: TOSHA BARDALES MD Report ??Date: 02/24/2005 14:47 By the signature above, the attending physician certifies that he/she has personally conducted a gross and/or microscopic examination of the described specimens and rendered or confirmed the above diagnosis. Specimen(s) Received: ? Bx esophagus 40.0 cm Clinical History: ? Hx heavy ETOH use; ? upper GI bleed Gross Description: ? Received in Hollande's fixative labeled Dietz and bx esophagus 40 cm are three fragments of soft tissue which range in size from 0.5 x 0.3 x 0.2 cm to 0.2 x 0.2 x 0.1 cm. ??Submitted entirely in one cassette. ??(Dr. Devin Claros-MANUEL)/[facility] End of Report NIKA TORREZ 02/19/2005 02/20/2005 7:1 1 EDT us Perry Hilton MD PATHOLOGY ORDERABLES Final Result [facility] TOR[facility] [address] [place] [address] documented in this encounter Visit Diagnoses Not on filedocumented in this encounter
--- OUTSIDE RECORDS SUMMARY | 2024-04-19 14:09 | XMS_ITS | Encounter Summary ---
Author Organization [facility] Address [address] [place] [address] Care Team Providers Care Senior Informatica Etl Developer Name Role Phone Unavailable Primary Care Provider Unavailabl e Encounter Details Date Type Department Care Team (Late st Contact Info) Description 12/09/2012 Results Only [facility] Laboratory Services - [facility] ([facility]) [address] [place], [place] [phone] Lilia Whyte, [facility] [address] [place] [address] [place] [phone] Social History Tobacco Use Types Packs/Day Years [...] Diagnosis Comments PAP TEST- RESULT ONLY Routine 12/09/2012 0:00 EDT documented in this encounter Results * PAP TEST- RESULT ONLY (12/09/2012 0:00 EDT) Pathology Report: CYTOPATHOLOGY REPORT Reports generated via electronic interface contain original data; however they are lacking the format of the original report. Caution should be taken when reading/interpreti ng unformatted reports. Name: ? KELSEY DIETZ ? Accession #: ? [id number] : ? 1975 (Age: 37) ??F ?Collect Date: ? 12/09/2012 Location: ? [facility] ? Receive Date: ? 12/12/2012 Provider: ?LILIA WHYTE WASHING MACHINE ASSEMBLER Copy to: ?RANDA ROONEY MD ? Specimen/Source: ?Pap Test, Cervix/Endocervix, ThinPrep Imaging System with manual evaluation Last Menstrual Period: ? Hormonal/Contracep tive Status: ? Intrauterine device: Mirena ? SPECIMEN ADEQUACY ? Satisfactory for Evaluation - transformation zone component present GENERAL CATEGORIZATION ? Negative for Intraepithelial Lesion or Malignancy INTERPRETATION ? Fungal organisms present morphologically consistent with Barbie species. ? Document reviewed and electronically signed by: ? JAMESON Starr(ASCP) ? Report Date: ??12/20/2012 14:27 End of Report NIKA TORREZ 12/09/2012 12/12/2012 us Lilia Whyte WASHING MACHINE ASSEMBLER PATHOLOGY ORDERABLES Final R esult [facility] [address] [place] [address] documented in this encounter Visit Diagnoses Not on filedocumented in this encounter
--- OUTSIDE RECORDS SUMMARY | 2024-04-19 14:10 | XMS_ITS | Encounter Summary ---
[place] [address] Care Team Providers Care Zinc Plating Machine Operator Name Role Phone Rhiannon Dorantes MD Primary Care Provider [phone] Reason for Visit * Reason Onset Date Comments Other 08/01/2015 Phone Call to [place] resendiz Encounter Details Date Type Department Care Team (Late st Contact Info) Description 08/01/2015 Telephone [place] [phone] Dejah Weston Other (Phone Call to Patient) Social History Tobacco Use Types Packs/Day Years Used Date Smoking Tobacco: Never Assessed Sex and Gender Information Value Date Recorded Sex Assigned at Not on file Gender Identity Not on file Sexual Orientation Not on file documented as of this encounter Miscellaneous Notes * Telephone Encounter - Dejah Weston - 08/01/2015 12:37 PM EST Due to change in [facility]'s schedule, time of pt's Curtis/EGD had to be moved from 8:00 am to 9:00 am on 08/07/15 - date stays the same. Dr. Willis will be doing EGD in [facility]'s stead. Called pt late yesterdayafternoon to let her know this, but no answer at her home or on her cell; left vm on both. Just called her again - no answer either phone, left vm both. -bcj documented in this encounter Plan of Treatment Not on file documented as of this encounter Visit Diagnoses Not on filedocumented in this encounter Care Teams Zinc Plating Machine Operator Relationship Specialty Start Date End Date Rhiannon Dorantes MD [facility] [address] [place] [facility] [address] [place] [address] PCP - General 04/15/10 documented as of this encounter
--- OUTSIDE RECORDS SUMMARY | 2024-04-19 14:10 | XMS_ITS | Encounter Summary ---
Author Organization [facility] Address [facility] Chandrakant [place] [id number] Care Team Providers Care Petroleum Geology Faculty Member Name Role Phone Rhiannon Dorantes MD Primary Care Provider [phone] Encounter Details Date Type Department Care Team (Latest Contact Info) Description 09/23/2015 10:00 PM EDT Tech Visit [place] [address] Sanjeev Garrett MD [facility] [place] [address] Gastroesophageal reflux disease, esophagitis presence not specified Social History Tobacco Use Types Packs/Day Years [...] as of this encounter Progress Notes * Sanjeev Garrett MD - 09/29/2015 9:49 AM EDT [id number] WIRELESS pH CAPSULE STUDY AFTER UPPER ENDOSCOPY Kelsey Dietz Female, 40 y.o., 1975 , SR None PCP: Rhiannon Dorantes [address]HW[address] TRAFFIC CONTROL TECHNICIAN: NONE STUDY DATES: 09/18/15 to 09/20/15 INTERPRETATION DATE: 09/24/15 PROVIDER: Sanje[place] ([id number]) INDICATION Reflux symptoms despite medical therapy. NOTE: This study was performed on Nexium. METHODS After upper endoscopy where landmarks were visualized and measured, in a supervised setting, and after informed consent, a Curtis pH telemetry capsule was deployed orally and attached to the esophageal wall at 5 cm above the upper border of the LES. No complications were noted during this procedure. FINDINGS Visual inspection of the study shows fluctuations in pH values throughout the study consistent witha technically adequate study. DAY ONE Upright: 13 hours, 33 minutes Supine: 10 hours, 27 minutes Total Number of Reflux Episodes: 41 Upright Position: 35 Supine Position: 6 Reflux Episodes Longer than Five Minutes: 7 Upright: 4 Supine: 3 Duration of Longest Episode: 38 minute(s), supine position Total Distal Esophageal Acid Exposure Time: 2 hours, 31 minute(s). Percent of Total Recording Time: 11.5% Percent of Upright Recording Time: 10.8% Percent of Supine Recording Time: 12.4% Calculated DeMeester Score (normal values are up to 14.72) Day One Calculated DeMeester Score: 40.6 DAY TWO Upright: 15 hours, 18 minutes Supine: 8 hours, 42 minutes Total Number of Reflux Episodes: 63 Upright Position: 56 Supine Position: 7 Reflux Episodes Longer than Five Minutes: 6 Upright: 4 Supine: 2 Duration of Longest Episode: 43 minute(s), upright position Total Distal Esophageal Acid Exposure Time: 2 hours, 41 minute(s). Percent of Total Recording Time: 12.3% Percent of Upright Recording Time: 16% Percent of Supine Recording Time: 6% Calculated DeMeester Score (normal values are up to 14.72) Day Two Calculated DeMeester Score: 38.6 Fivrr-Xwyod-Xpar DeMeester Score (Total): 40.1 Vksub-Dfjpp-Notm (Total) Fraction of Time with pH Less Than 4%: 11.9% Day One Symptoms Association Probability (SAP) for Heartburn: 70% Chest pain: 0% Regurgitation: 0% Day Two SAP for Heartburn: 100% Chest pain: 0% Regurgitation: 0% Msckw-Etpfh-Qsth SAP for Heartburn: 95% Chest pain: 0% Regurgitation: 0% IMPRESSION During this recording period, while the patient was taking Nexium each day (the patient reported that she was taking it twice daily leading up to the day of the study, although she did not take it onthe morning of the study) there was evidence of moderate pathologic acid reflux into the distal esophagus. Symptom association was elevated and statistically significant. RECOMMENDATION 1. Continue lifestyle modifications for RYAN. 2. Recent upper endoscopy results should be reviewed. No evidence of esophagitis was present. This indicates that although some acid reflux may persist, the esophagus has not been injured. 3. Consider switching the patient to another PPI, as some patients respond better to one PPI than to another. 4. Review medications to determine whether medications may be playing a role in decreased efficacy of PPIs (concomitant H2 receptor antagonist use; opioids, high-dose tricyclic antidepressants; nitrates). NORMAL VALUES FOR WIRELESS pH CAPSULE STUDY 1. Total number of reflux episodes = less than 50. 2. Number of episodes longer than 5 minutes = less than 3. 3. Acid exposure time Total = less than 5.3% Upright = less than 6.3% Supine = less than 1.2%. ADDENDUM SAP expresses the likelihood that a specific symptom, i.e., heartburn, regurgitation, chest pain, is associated with acid reflux. By convention, SAP values greater than 95% are positive. Sanjeev Garrett, PhD, MD cat cracker operator, [employer] Chief, Section of Gastroenterology and Hepatology [facility] [place] [address] V: [phone] F: [phone] LANETTE/yesica EC/CC: PCP - staff msg copy 09/27/15 documented in this encounter Plan of Treatment Not on file documented as of this encounter Visit Diagnoses Diagnosis Gastroesophageal reflux disease, esophagitis presence not specified documented in this encounter Care Teams Petroleum Geology Faculty Member Relationship Specialty Start Date End Date Rhiannon Dorantes MD [address] [place] [address] PCP - General 04/15/10 documented as of this encounter
--- OUTSIDE RECORDS SUMMARY | 2024-04-19 14:10 | XMS_ITS | Encounter Summary ---
Author Organization [facility] [place] [address] Care Team Providers Care Signal Apprentice Name Role Phone Rhiannon Dorantes MD Primary Care Provider [phone] Encounter Details Date Type Department Care Team (Late st Contact Info) Description 2021 Ancillary Procedure Radiology Library at [facility] [place] [phone] Rhiannon Dorantes MD [facility] [address] [place] [address] Social History Tobacco Use Types Packs/Day Years [...] Procedure Name Priority Date/Time Associated Diagnosis Comments FILM LIBRARY STORAGE ONLY CT ABDOMEN AND PELVIS Routine 2021 12:00 AM EST documented in this encounter Results * Film Library- Storage Only CT Abdomen & Pelvis (2021 12:00 AM EST) Narrative RAD - 05/01/2021 9:51 AM EST This exam is auto-finalizing. It's purpose is for storage only. Rhiannon Dorantes MD IMG FILM LIBRARY ORD ERABLES DH RAD [place], [place] documented in this encounter Visit Diagnoses Not on filedocumented in this encounter Care Teams Signal Apprentice Relationship Specialty Start Date End Date Rhiannon Dorantes MD [address] [place] [address] [address] [place] [address] PCP - General 04/15/10 documented as of this encounter
--- OUTSIDE RECORDS SUMMARY | 2024-04-19 14:10 | XMS_ITS | Encounter Summary ---
[place] [address] Care Team Providers Care Manager Housekeeping Name Role Phone Rhiannon Dorantes MD Primary Care Provider [phone] Encounter Details Date Type Department Care Team (Late st Contact Info) Description 12/30/2010 [place] [phone] Nohemy Rodriguez, RN Social History Tobacco Use Types Packs/Day Years Used Date Smoking Tobacco: Never Assessed Sex and Gender Information Value Date Recorded Sex Assigned at Not on file Gender Identity Not on file Sexual Orientation Not on file documented as of this encounter Plan of Treatment Not on file documented as of this encounter Visit Diagnoses Not on filedocumented in this encounter Care Teams Manager Housekeeping Relationship Specialty Start Date End Date Rhiannon Dorantes MD [address] [place], [place] [id number] PCP - General 04/15/10 documented as of this encounter
--- OUTSIDE RECORDS SUMMARY | 2024-04-19 14:10 | XMS_ITS | Encounter Summary ---
[place] [address] Care Team Providers Care Emt Basic Name Role Phone Rhiannon Dorantes MD Primary Care Provider [phone] Reason for Visit * Auth/Cert Specialty Diagnoses / Procedures Referred By Contac t Referred To Contact Diagnoses GERD, coord Curtis, OAM, OEM consult Procedures PRO UPPER GI ENDOSCOPY, DIAGNOSTIC EGD, UPPER GI ENDOSCOPY Referral ID Status Reason Start Date Expiration Date Visits Re quested Visits Authorized [id number] 1 1 Encounter Details Date Type Department Care Team (Latest Contact Info) Description 09/18/2015 8:00 AM EDT Procedure [place] [address] Micha Pantoja RN Gastroesophageal reflux disease, esophagitis presence not specified [...] as of this encounter Progress Notes * Desiree Jacobs RN - 09/18/2015 9:04 AM EDT 8:26 Curtis capsule deployed following EGD with Dr. Garrett. Placed at 31cm from incisors without difficulty. Study being performed on 40mg Nexium bid. First PH- 5.4 documented in this encounter Plan of Treatment Not on file documented as of this encounter Visit Diagnoses Diagnosis Gastroesophageal reflux disease, esophagitis presence not specified documented in this encounter Care Teams Emt Basic Relationship Specialty Start Date End Date Rhiannon Dornates MD [address] [place] [address] PCP - General 04/15/10 documented as of this encounter
--- OUTSIDE RECORDS SUMMARY | 2024-04-19 14:10 | XMS_ITS | Encounter Summary ---
Author Organization [facility] [place] [address] Care Team Providers Care Waste Machine Operator Name Role Phone Rhiannon Dorantes MD Primary Care Provider Encounter Details Date Type Department Care Team (Late st Contact Info) Description 05/05/2016 Telephone [place] [phone] Shari Cochran Social History Tobacco Use Types Packs/Day Years [...] encounter Miscellaneous Notes * Telephone Encounter - Micha Pantoja RN - 05/06/2016 8:19 AM EST Unable to reach patient by phone, left message on voicemail to call the office at her convenience. * Telephone Encounter - Shari Lebron - 05/05/2016 4:44 PM EST Caller: patient Call for: Alyse TAM Reason for call: discuss tests she's had done and additional tests she needs to have done Call back urgency: routine Ok to leave detailed message? yes Patient's preferred method of communication: phone; [phone] documented in this encounter Plan of Treatment Not on file documented as of this encounter Visit Diagnoses Not on filedocumented in this encounter Care Teams Waste Machine Operator Relationship Specialty Start Date End Date Rhiannon Dorantes MD [address] [place] [address] PCP - General 04/15/10 documented as of this encounter
--- OUTSIDE RECORDS SUMMARY | 2024-04-19 14:10 | XMS_ITS | Encounter Summary ---
Author Organization [facility] Address [place] [address] Care Team Providers Care Hospice Rn Name Role Phone Rhiannon Dorantes MD Primary Care Provider [phone] Encounter Details Date Type Department Care Team (Late st Contact Info) Description 02/22/2013 Telephone [place] [phone] Eden Santizo, RN DEPT OF GASTROENTEROLOGY Social History Tobacco Use Types Packs/Day Years Used Date Smoking Tobacco: Never Assessed Sex and Gender Information Value Date Recorded Sex Assigned at Not on file Gender Identity Not on file Sexual Orientation Not on file documented as of this encounter Miscellaneous Notes * Telephone Encounter - Eden Pillai RN - 02/22/2013 3:10 PM EDT Pt calls and states she has been referred, appointment date Jul 04, 2013, was referred for reflux, it still having severe reflux symptoms as well as other GI symptoms. Pts chief complaint: flare up started 6 weeks ago Vomiting nausea diarrhea (though usually constipated) weight loss 7 pounds in 4 weeks. vomiting 2-6times per day, Diarrhea 1-6 times per day After bm pt states it looks like white slugs in the toilet, stool sometimes looks pasty, wonders if its mucus. Imodium 2-3 pills per day, does not think pills are helping. Thinks her body is cycling and is starting to head back to being constipated. Historically, lots of steroids have been used, none have helped. Will have records faxed. Diet mostly soup, crackers On good day would eat a plain donut, peanut butter and honey sandwich, then nauseous at dinner. Lots of gas, bloating, belching and flatulance. Currently taking Nexium 40mg BID for reflux Feels reflux symptoms all the time, pt states she wakes up in the middle of the night choking on acid. Pt states she has Internal Hemorrhoids that have not bothered her in the past (despite long standing constipation), but feels as though they are trying to push through to being on the outside now Colonscopy last 2004- [place] [facility] [place] [facility] [place] Please advise. * Telephone Encounter - Eden Pillai RN - 02/22/2013 2:54 PM EDT Pt left VM stating she has been referred, and her appt is 07/04/13, requests sooner appt due to symptoms. Returned call to pt to discuss, no answer, no machine at home, cell disconnected. documented in this encounter Plan of Treatment Not on file documented as of this encounter Visit Diagnoses Not on filedocumented in this encounter Care Teams Hospice Rn Relationship Specialty Start Date End Date Rhiannon Dorantes MD [address] [place] [address] PCP - General 04/15/10 documented as of this encounter
--- OUTSIDE RECORDS SUMMARY | 2024-04-19 14:10 | XMS_ITS | Encounter Summary ---
Author Organization [facility] [place] [address] Care Team Providers Care Proofreader Name Role Phone Rhiannon Dorantes MD Primary Care Provider [phone] Reason for Visit * Auth/Cert Specialty Diagnoses / Procedures Referred By Contac t Referred To Contact Diagnoses GERD, coord [place], OAM, OEM consult Procedures PRO UPPER GI ENDOSCOPY, DIAGNOSTIC EGD, UPPER GI ENDOSCOPY Referral ID Status Reason Start Date Expiration Date Visits Re quested Visits Authorized [id number] 1 1 Encounter Details Date Type Department Care Team (Late st Contact Info) Description 09/18/2015 8:12 AM EDT Anesthesia [place] [address] Dustin Sims MD [facility] DR [place] [address] Jim Hernandez CRNA Anesthesia Record Procedure Summary Procedure Name Responsible Anesthesiologist Anesthesia Start Time Anesthesia Stop Time EGD WITH BIOPSY (WRVU 2.39) Dustin Sims MD 09/18/15 0812 09/18/15 0832 Events Date Time Event Comment 09/18/2015 0800 0812 AN Verify 0812 Start 0812 An Start Data 0813 Anesthesia Ready 0815 An Induction 0827 an stop data 0831 Recovery or ICU Handoff Izabel ent care was transferred to the destination unit staff after review of the patient's medical history, current anesthetic/surgical status and plan, according to the Provider Handoff Checklist. 0832 Stop Meds Name Total IV Lidocaine 60 mg Propofol 100 mg Propofol INF 110.72 mg * Agents Name O2 * Blood No blood administrations on file. Lines, Drains, and Airways Type Details Placement Removal (RETIRED) Peripheral IV Line - Single Lumen 09/18/15; 08; median cubital vein left (antecubital fossa); [id number] catheter system; 22 gauge; 09/18/15; 0903 09/18/15 0809 by Estrella Kwan 09/18/15 09 by Jany Prakash RN documented in this encounter Social History [...] OR Notes * Anesthesia Postprocedure Evaluation - Dustin Sims MD - 09/18/2015 9:42 AM EDT [facility] [place] Department of Anesthesiology Post-procedure Note Patient: Kelsey Dietz Procedure Summary Date Anesthesia Start Anesthesia Stop Room / Location 09/18/15 0812 0832 [facility] Procedure Diagnosis Surgeon Responsible Provider EGD WITH BIOPSY (N/A ) (GERD - [place] (on meds); consult; Left VMs @ H # & C # to conf time & provider changes - 08/01, AC; Left VMs @ H # & C # again - 08/04, ) Sanjeev Garrett MD Manfred, Christopher S, MD All Anesthesia Providers: Anesthesiologist: Dustin Sims MD TRAY LINE WORKER: Jim Hernandez CRNA Student Nurse Sap Mobility Architect: Estrella Kwan Last (1hr) Vitals: BP Temp Pulse Resp SpO2 Patient Location: PACU/[facility] Level of Consciousness: Awake and Alert Pain Management: Satisfactory Analgesia PONV: None Cardiovascular Status: At Baseline and Hemodynamically Stable Respiratory Status: At Baseline and Room Air Postoperative Fluid Status: Intravascular EUvolemia Possible Anesthetic Complications: NONE apparent at time of evaluation Final Primary Anesthesia Type: MAC (The anesthetic type performed was the same as planned.) Comments: DUSTIN SIMS MD * Anesthesia Preprocedure Evaluation - Dustin Sims MD - 09/17/2015 10:56 PM EDT Pre-Anesthesia Evaluation for: Kelsey Dietz a 40 y.o. female. Procedure(s): EGD, UPPER GI ENDOSCOPY Patient Active Problem List Diagnosis ??? IBS (irritable bowel syndrome) No past medical history on file. No past surgical history on file. History Substance Use Topics ??? Smoking status: Not on file ??? Smokeless tobacco: Not on file ??? Alcohol Use: Not on file History Drug Use Not on file Allergies Allergen Reactions ??? Amoxicillin Trihydrate Other (See Comments) swelling of face Medications: MAR and/or home medications have been reviewed. Physical Exam: There were no vitals filed for this visit. There is no height or weight on file to calculate BMI. Airway Assessment: Mallampati: I TM distance: >3 FB Neck ROM: full Cardiovascular Assessment: Rhythm: regular Rate: normal (-) murmur cardiovascular exam normal Pulmonary Assessment: breath sounds clear to auscultation (-) wheezes pulmonary exam normal Dental Assessment: - normal exam Misc Assessment: IV access: Peripheral line Anesthesia Plan: ASA 2 MAC, with a(n) intravenous induction This is a 40 y.o. Female with a pmhx significant for [...] Anesthetic plan and risks discussed with patient. Plan discussed with TRAY LINE WORKER. PAT Staff Note documented in this encounter Plan of Treatment Not on file documented as of this encounter Visit Diagnoses Not on filedocumented in this encounter Administered Medications Inactive Administered Medications - up to 3 most recent administrations Medication Order MAR Action Action Date Dose Rate Site lidocaine (PF) (XYLOCAINE) 100 mg/5 mL (2 %) injection PRN, Starting on Wed09/18/15 at 0815, Until Wed09/18/15 at 0832, Anesthesia Intra-op, Routine Given 09/18/2015 8:15 AM EDT 60 mg propofol (DIPRIVAN) 10 mg/mL bolus injection (Anesthesia) PRN, Starting on Wed09/18/15 at 0815, Until Wed09/18/15 at 0832, Anesthesia Intra-op Given 09/18/2015 8:18 AM EDT 70 mg Given 09/18/2015 8:15 AM EDT 30 mg propofol (DIPRIVAN) infusion CONTINUOUS PRN, Starting on Wed09/18/15 at 0815, Until Wed09/18/15 at 0832, Anesthesia Intra-op, Routine New Bag 09/18/2015 8:15 AM EDT 175 mcg/kg/min 73.8 mL/hr documented in this encounter Care Teams Proofreader Relationship Specialty Start Date End Date Rhiannon Dorantes MD [address] [place] [address] PCP - General 04/15/10 documented as of this encounter
--- OUTSIDE RECORDS SUMMARY | 2024-04-19 14:10 | XMS_ITS | Encounter Summary ---
Author Organization [facility] [place] [address] Care Team Providers Care Air Conditioning Coil Assembler Name Role Phone Rhiannon Dorantes MD Primary Care Provider [phone] Reason for Visit * Auth/Cert Specialty Diagnoses / Procedures Referred By Contac t Referred To Contact Diagnoses GERD, coord Mendoza, OAM, OEM consult Procedures PRO UPPER GI ENDOSCOPY, DIAGNOSTIC EGD, UPPER GI ENDOSCOPY Referral ID Status Reason Start Date Expiration Date Visits Re quested Visits Authorized [id number] 1 1 Encounter Details Date Type Department Care Team (Late st Contact Info) Description 09/18/2015 8:00 AM EDT - 09/18/2015 8:30 AM EDT Surgery [place] [address] Sanjeev Garrett MD [facility] [place] [address] EGD WITH BIOPSY (WRVU 2.39) Social History Tobacco Use Types Packs/Day Years Used Date Smoking Tobacco: Every Day Cigarettes 1 25 Smokeless Tobacco: Never Tobacco Cessation:Ready to [...] Sign Reading Time Taken Comments Blood Pressure 117/75 09/18/2015 8:30 AM EDT Pulse 76 09/18/2015 8:30 AM EDT Temperature - - Respiratory Rate 16 09/18/2015 8:30 AM EDT Oxygen Saturation 98% 09/18/2015 8:30 AM EDT Inhaled Oxygen Concentration - - Weight 70.3 kg (155 lb) 09/18/2015 7:47 AM EDT Height - - Body Mass Index - - documented in this encounter Discharge Instructions * Discharge Instructions* Jany Prakash RN - 09/18/2015 8:35 AM EDT UPPER GI ENDOSCOPY WHAT TO EXPECT AFTER THE PROCEDURE After the test you may feel a little more gassy or bloated than usual, this is normal. ACTIVITY Because of the sedation that you received Your judgement and reaction time are affected ?? Go home and rest quietly for the remainder of the day. You may resume your normal activities tomorrow. ?? Change from one position to the next slowly. You may lose your balance unexpectedly Be careful on stairs, as you may be unsteady on your feet. FOR THE NEXT 24 HRS ?? DO NOT DRIVE OR OPERATE ANY MACHINERY ?? DO NOT DRINK ALCOHOLIC BEVERAGES ?? DO NOT SIGN LEGAL DOCUMENTS ?? If you are a smoker: DO NOT SMOKE WHILE YOU ARE ALONE Diet ?? Start by eating small portions of foods that ordinarily will not upset your stomach. Be gentle with what you choose to start with. ?? Drink plenty of fluids ( unless otherwise told not to) Medications You may have a mild sore throat. Ice chips, popsicles, over the counter throat lozenges or spray may help numb your throat. This procedure should not cause a fever. IV SITE-- slight redness or tenderness is normal, you can use warm compresses if you get concerned.If the tenderness +/or redness increases or foul drainage and a red streak occurs, please contact your PCP immediately. WHEN SHOULD YOU CALL FOR HELP? Call 911 anytime you think that you need emergency care. For example, call if: You passed out (lost consciousness). You cough up blood. You vomit blood or what looks like coffee grounds. You pass maroon or very bloody stools. Call your healthcare provider or seek immediate medical attention if: You have trouble swallowing. You have belly pain. Your stools are black or tarlike or have streaks of blood. You are sick to your stomach or cannot keep fluids down. Watch closely for changes in your health, and be sure to contact your doctor IF Your throat still hurts after a day or two You do not get better as expected. Wednesday-Wednesday Same Day Endo [phone]-8p Otherwise contact [phone] and ask to speak to the ion implant machine operator director of application development Follow-up care is a eller part of your treatment and safety. Be sure to make and go to all appointments, and call your doctor if you are having problems. Instructions have been reviewed and patient expresses understanding * Patient Instructions* Sanjeev Garrett MD - 09/18/2015 8:25 AM EDT Please see Recommendations in the Provation procedure report which is documented in the procedural note in [facility]. documented in this encounter Medications at Time of Discharge Medication Sig Dispensed Refills Start Date End Date buprenorphine-naloxone (SUBOXONE) 8-[address] 2 mg of opiate under the tongue daily. esomeprazole (NEXIUM) 40 mg Capsule, Delayed Release(E.C.) Take 40 mg by mouth 2 times daily. 06/17/2021 LIPASE/PROTEASE/AMYLASE (PANCREASE ORAL) Take by mouth. 1 to 3 capsules, 12 to 14 times per day 06/24/2022 docusate sodium (COLACE) 100 mg capsule Take 100 mg by mouth as needed. 06/17/2021 Bismuth Subsalicylate (PEPTO-BISMOL) 262 mg Tab 11/03/2006 lubiprostone (AMITIZA) 24 mcg capsule 24 MCG = 1 Capsule(s), PO, Twice daily 11/03/2006 06/17/2021 documented as of this encounter H&P Notes * Sanjeev Garrett MD - 09/18/2015 7:39 AM EDT See pcp notes; no interval change from when I saw her. Still on suboxone. Stable for egd with mendoza; risks explained; consent signed; see anesthesia notes; required due to medication use and abuse history. documented in this encounter Plan of Treatment Not on file documented as of this encounter Procedures Procedure Name Priority Date/Time Associated Diagnosis Comments SURGICAL PATHOLOGY REPORT Routine 09/18/2015 8:27 AM EDT SPECIMEN TO PATHOLOGY Routine 09/18/2015 8:27 AM EDT EGD WITH BIOPSY (WRVU 2.39) 09/18/2015 8:12 AM EDT GERD - mendoza (on meds) consult Left VMs @ H # & C # to conf time & provider changes - 08/01, AC Left VMs @ H # & C # again - 08/04, AC UPPER GI ENDOSCOPY Routine 09/18/2015 7: 57 AM EDT documented in this encounter Results * Surgical Pathology Report (09/18/2015 8:27 AM EDT) Final Diagnosis [id number] ? Location: 4T; EA06; A The signing pathologist has (i) examined the relevant preparation(s) for the specimen(s) and (ii) rendered or confirmed the diagnosis(es). . ?Surgical Pathology DIAGNOSIS Stomach, ??biopsy: Gastric antral gland mucosa with mild nonspecific reactive gastropathy. Gastric fundic mucosa within normal limits. No H. pylori-like microorganism is seen. 09/18/15 AAY 09/20/15 Verified by: ? Tanika Young MD ?Pathologist ?(Electronic Signature) The attending pathologist whose signature appears on this report has reviewed all diagnostic slides and has edited the gross and/or microscopic portion of the report in rendering the final pathologic diagnosis. CLINICAL INFORMATION Specimen Submitted: A - Stomach Clinical History: GERD, dyspepsia Clinical Diagnosis: Gastric erythema; ?HP SPECIMEN PROCESSING A - Labeled/Fixative: Stomach, formalin. Quantity/Size: Six, 0.3-0.4 cm. Tissue Description: ??Soft, yellow-clark tissue ??. Sections/Processi ng: (T2) ??ejr 09/20/2015 11:31 AM EDT [facility] GI Biopsy 09/18/2015 8:27 AM EDT 09/18/2015 8:27 AM EDT Sanjeev Garrett MD PATHOLOGY/CYTOLOGY [facility] Performing Organization Address [facility] [place] [address] * Specimen to Pathology (surgical or derm) (09/18/2015 8:27 AM EDT) AP Specimen 09/18/2015 8:27 AM EDT 09/18/2015 8:27 AM EDT Narrative [facility] - 09/18/2015 8:27 AM EDT Specimen requisition ordered. ??Separate Pathology report to follow Sanjeev Garrett MD PATHOLOGY/CYTOLOGY [facility] Performing Organization Address [facility] [place] [place] [address] * UPPER GI ENDOSCOPY (09/18/2015 7:57 AM EDT) UPPER GI ENDOSCOPY [facility] Endoscopy Patient Name: Kelsey Dietz ? Procedure Date: 09/18/2015 7:57 AM ? Date of : 1975 ? Age: 40 ? Order #: [id number] ? Procedure: ? Upper GI endoscopy Indications: ? Dyspepsia, Heartburn, Follow-up of ? esophageal reflux, Exclusion of ? Rosario's esophagus; need to ? accurately place wireless pH capsule Providers: ? Sanjeev Garrett MD, Maame Richardson, ? RN, Norm Boles Referring : ?Rhiannon Dorantes MD Requesting Provider: Dr. Jim Hadley Medicines: ? Monitored Anesthesia Care Complications: ? No immediate complications. Procedure: ? The procedure, indications, benefits, ? risks and alternatives were explained ? to the patient. Specifically ? discussed were potential ? complications including, but not ? limited to, bleeding, perforation, ? infection, missing a cancer, and ? adverse medication reactions. The ? Endoscope was introduced through the ? mouth, and advanced to the third part ? of duodenum. The patient tolerated ? the procedure well. The upper GI ? endoscopy was accomplished without ? difficulty. ? Findings: ? The examined duodenum was normal. ? - No retained food in the stomach. ? Patchy mildly erythematous mucosa without bleeding ? was found in the gastric antrum. Biopsies were taken ? with a cold forceps for histology from throughout the ? stomach to rule out h. pylori. ? The gastric body was normal. ? The gastric fundus was normal. ? A small hiatus hernia was present extending from 39 ? to 37 cm. ? The Z-line was regular and was found 37 cm from the ? incisors. ? The MENDOZA capsule with delivery system was introduced ? through the mouth and advanced into the esophagus, ? such that the MENDOZA pH capsule was positioned 31 cm ? from the incisors, which was 6 cm proximal to the EG ? junction. The MENDOZA pH capsule was then deployed and ? attached to the esophageal mucosa. The delivery ? system was then withdrawn. Endoscopy was utilized for ? probe placement and diagnostic evaluation. ? The middle third of the esophagus was normal. ? The upper third of the esophagus was normal. ? Impression: ?- Normal examined duodenum. ? - Erythematous mucosa in the antrum. ? Biopsied. ? - Normal gastric body. ? - Normal gastric fundus. ? - Small hiatus hernia. ? - Z-line regular, 37 cm from the ? incisors. ? - Normal middle third of esophagus. ? - Normal upper third of esophagus. ? - The Edvivo pH capsule was deployed. Recommendation: ?- Await pathology results. ? - Letter to be sent to patient and ? referring providers in 8-10 days ? - Return to primary care physician as ? previously scheduled. ? - Wireless pH capsule study being ? performed on nexium twice daily ? Procedure Code(s): ?? --- Professional --- ? 95436, Esophagogastroduo denoscopy, ? flexible, transoral; with biopsy, ? single or multiple CPT copyright 2014 [employer]. All rights reserved. The codes documented in this report are preliminary and upon clock mechanic review may be revised to meet current compliance requirements. Attending Participation: ? I personally performed the entire procedure. ? Sanjeev Garrett MD 09/18/2015 8:29 AM This report has been signed electronically. Number of Addenda: 0 Note Initiated On: 09/18/2015 7:57 AM PROVATION 09/18/2015 7:57 AM EDT Rhiannon Dorantes MD GENERAL SURGICAL ORD ERABLES PROVATION documented in this encounter Visit Diagnoses Not on filedocumented in this encounter Active and Recently Administered Medications Care Teams Air Conditioning Coil Assembler Relationship Specialty Start Date End Date Rhiannon Dorantes MD [address] [place] [address] [address] [place] [address] PCP - General 04/15/10 documented as of this encounter
--- OUTSIDE RECORDS SUMMARY | 2024-04-19 14:10 | XMS_ITS | Encounter Summary ---
Author Organization [facility] [place] [address] Care Team Providers Care Clinical Administrative Coordinator Name Role Phone Rhiannon Dorantes MD Primary Care Provider [phone] Encounter Details Date Type Department Care Team (Late st Contact Info) Description 04/13/2014 Telephone [place] [address] Dejah Weston Social History Tobacco Use Types Packs/Day Years Used Date Smoking Tobacco: Never Assessed Sex and Gender Information Value Date Recorded Sex Assigned at Not on file Gender Identity Not on file Sexual Orientation Not on file documented as of this encounter Miscellaneous Notes * Telephone Encounter - Dejah Weston - 04/13/2014 3:23 PM EST Pt taking Suboxone 2 to 4 mg daily. Pt has had multiple endoscopies, colonoscopies and has found herself wide awake during these procedures and very fearful this will happen again. She thinks it's because she has a high tolerance to sedation. Allergies to amoxicillin and seroquel. -bcj documented in this encounter Plan of Treatment Not on file documented as of this encounter Visit Diagnoses Not on filedocumented in this encounter Care Teams Clinical Administrative Coordinator Relationship Specialty Start Date End Date Rhiannon Dorantes MD [facility] [address] [place], [place] [id number] PCP - General 04/15/10 documented as of this encounter
--- OUTSIDE RECORDS SUMMARY | 2024-04-19 14:10 | XMS_ITS | Encounter Summary ---
Author Organization [facility] Address [facility] [place] [address] Care Team Providers Care Tablet Machine Operator Name Role Phone Rhiannon Dorantes MD Primary Care Provider [phone] Reason for Visit * Consultation (Routine) - Closed Specialty Diagnoses / Procedures Referred By Contac t Referred To Contact Gastroenterology Diagnoses Personal history of other diseases of the digestive system Unspecified abdominal pain Gastro-esophageal reflux disease without esophagitis abd pain/gerd Rhiannon Dorantes MD [facility] [address] [place] [address] [facility] [address] [place] [address] Referral ID Status Reason Start Date Expiration Date V isits Requested Visits Authorized [id number] Closed Consult, [facility] PCP Updated and/or Approved 05/07/2021 05/07/2022 6 6 Encounter Details Date Type Department Care Team (Latest Contact Info) Description 06/17/2021 11:00 AM EST TH Visit (TeleHealth) [place] [address] Cathy Thomas PA [facility] [place] [address] Acute pancreatitis, unspecified complication status, unspecified pancreatitis [...] Progress Notes * Cathy Thomas PA - 06/17/2021 11:00 AM EST Images from the original note were not included. GASTROENTEROLOGY TELEHEALTH PROGRAM - NEW PATIENT VISIT Chief Complaint: Kelsey Deitz is a 46 y.o. patient referred for consultation by Dr. Dorantes for abdominal pain History of Present Illness: [...] changes consistent with chronic pancreatitis. This was 1week after onset of pain. +nausea but no [...] hx of pancreatitis second to etoh abuse Review of systems: 14-point review of systems reviewed and negative except as above. Medications: ??? lansoprazole (PREVACID) 30 mg Capsule, Delayed Release(E.C.) ??? ergocalciferoL, vitamin D2, (vitamin D2) 50,000 unit Capsule ??? valACYclovir (VALTREX) 1 gram Tablet ??? ProAir HFA 90 mcg/actuation HFA Aerosol Inhaler ??? Dulera 200-5 mcg/actuation HFA Aerosol Inhaler ??? buprenorphine-naloxone (SUBOXONE) 8-2 mg Subl ??? LIPASE/PROTEASE/AMYLASE (PANCREASE ORAL) Allergies: is allergic to amoxicillin trihydrate. Past Medical History: Past Surgical History: has a past surgical history that includes Upper Gi Endoscopy, Biopsy ([id number])(N/A, 09/18/2015). Family History: denies family history of IBD, [...] records): CT AP 04/2021 Assessment/Plan: 46-year-old female with a history of pancreatitis in 2004. She tells me at that time her pancreatitis was related to alcohol abuse. She also had a cholecystectomy at that time as well. She had not had any issues regarding pancreatitis since, until this summer. She developed abdominal pain reminiscent of pancreatitis in December which lasted 2 weeks and again in March. The second episode was muchmore severe. Both episodes were associated with nausea, diarrhea and steatorrhea. When she was initially diagnosed with pancreatitis she was on Creon but over the years discontinued. Her PCP recommended resuming Creon. Approximately 1 week after symptom onset she underwent cross-sectional imaging with a CT scan which we reviewed today. We discussed the following plan 1. Endoscopic evaluation with an EUS. We reviewed this in detail 2. Continue Creon 2 capsules before meals and 1 before snacks 3. Work on tobacco cessation. We discussed how tobacco may also contribute to pancreatitis. She tells me she is working on quitting We did discuss recommendations if abdominal pain returns. She tells me she did not go to the emergency department because she is unable to receive pain medication due to her history of substance abuse. We discussed that if her pain were to return I would still recommend ED evaluation for nonnarcotic options and also for IV hydration. We discussed how this is also an important factor for acute pancreatitis as well. Endoscopic ultrasound (EUS) is a minimally invasive procedure to assess for gastrointestinal diseases. This combines an esophagogastroduodenoscopy (EGD) with an ultrasound. A special endoscope uses high-frequency sound waves to produce detailed images of the lining and archibald of your digestive tractand nearby organs such as the pancreas and liver, and lymph nodes. Adverse events associated with EUS include but are not limited to sedation adverse events, perforation and bleeding. Data suggests that risk of perforation with EUS is similar to standard endoscopy which is estimated to be approximately 0.03%. Fine needle aspiration (FNA) is performed to obtain tissue from masses or lymph nodes, as well as to aspirate the contents of cystic structures for analysis. Therapeutic procedures can also be performed injecting alcohol, corticosteroids or anesthetic agents to achieve celiac plexus blockade. FNA carries possible additional adverse events such as intraluminal bleeding, bacteremia, though a rare occurrence and pancreatitis. Your physician may or may not prescribe antibiotics after your procedure, prophylactically. Iatrogenic pancreatitis as a result of EUS/FNA may arise in patients undergoing FNA of pancreatic masses, cysts or the pancreatic duct. Reported rates of pancreatitis associated with EUS/FNA ranges from 0% to 2%. Adverse events associated with celiac plexus block include transient diarrhea (4%-15%), transient orthostasis (1%), transient increase in pain (9%) and abscess formation. ERIS Owens [facility] [place] [address] documented in this encounter Plan of Treatment Scheduled Orders Name Type Priority Associated Diagnoses Orde r Schedule ENDOSCOPY CASE REQUEST: UPPER EUS- ENDOSCOPIC ULTRASOUND Procedures Routine Acute Pancreatitis, Unspecified Complication Status, Unspecified Pancreatitis Type Ordered: 06/17/2021 documented as of this encounter Visit Diagnoses Diagnosis Acute pancreatitis, unspecified complication status, unspecified pancreatitis type documented in this encounter Care Teams Tablet Machine Operator Relationship Specialty Start Date End Date Rhiannon Dorantes MD [facility] [address] [place] [address] PCP - General 04/15/10 documented as of this encounter
--- OUTSIDE RECORDS SUMMARY | 2024-04-19 14:10 | XMS_ITS | Encounter Summary ---
[place] [address] Care Team Providers Care High School Foreign Language Teacher Name Role Phone Rhiannon Dorantes MD Primary Care Provider [phone] Encounter Details Date Type Department Care Team (Late st Contact Info) Description 06/17/2021 Telephone [place] [id number] Lida Sánchez CMA GASTROENTEROLOGY DEPT Social History Tobacco Use Types Packs/Day Years [...] encounter Miscellaneous Notes * Telephone Encounter - Lida Sánchez CMA - 06/17/2021 8:20 AM EST Called patient to review medications and allergies for their upcoming gastroenterology Type of Appointment: Telehealth appointment. Reach Patient during MA Check: Yes Notes for the provider: Notes for the nurse: documented in this encounter Plan of Treatment Not on file documented as of this encounter Visit Diagnoses Not on filedocumented in this encounter Care Teams [employer] Foreign Language Teacher Relationship Specialty Start Date End Date Rhiannon Dorantes MD [facility] [address] [place], [place] [id number] PCP - General 04/15/10 documented as of this encounter
--- OUTSIDE RECORDS SUMMARY | 2024-04-19 14:10 | XMS_ITS | Encounter Summary ---
Author Organization On License Of [facility] Address [facility] [place] [address] Care Team Providers Care Motor Equipment Sergeant Name Role Phone Rhiannon Dorantes MD Primary Care Provider [phone] Reason for Referral * Surgical (Routine) - Closed Specialty Diagnoses / Procedures Referred By Contgianni t Referred To Contact Gastroenterology Diagnoses Esophageal reflux Constipation Severe esophageal reflux, severe constipation Procedures OAM w balloon, OEM, Curtis ON meds; EGD w propofol in this order, all on same day per Dr. Garrett. Patient: [phone] Book fup w BEL. On Suboxone between 2 and 3 mg daily. motility Sanjeev Garrett MD [facility] [place] [address] [facility] Endoscopy [address] [place] [address] Referral ID Status Reason Start Date Expiration Date V isits Requested Visits Authorized [id number] Closed Test Only 07/04/2013 12/31/2013 1 1 Encounter Details Date Type Department Care Team (Late st Contact Info) Description 07/04/2013 4:00 PM EST Office [place] [address] Sanjeev Garrett MD [facility] [place] [address] Esophageal reflux (Primary Dx); Constipation Discharge Disposition: Home Social History Tobacco Use Types Packs/Day Years Used Date Smoking Tobacco: Never Assessed Sex and Gender Information Value Date Recorded Sex Assigned at Not on file Gender Identity Not on file Sexual Orientation Not on file documented as of this encounter Progress Notes * Sanjeev Garrett MD - 07/07/2013 7:43 AM EST NEW GI CONSULTATION Kelsey Dietz Female, 38 yrs, 1975 PCP: RHIANNON DORANTES LENS MATCHER: NONE MILLER SUPERVISOR: [place] ([id number]) REFERRING PROVIDER(S) Rhiannon Dorantes MD PRIOR PROVIDERS SEEN The patient has been followed by Dr. Jim Hadley for some time. In the very distant past, approximately 2002, she was seen by Dr. Mitchell Bejarano here. ISSUES The patient was referred for two issues, that of reflux with a question of whether she is an appropriate candidate for surgery; and concerns over constipation. NOTE: The patient did not show up for an appointment on 04/26/12 and canceled her appointment on 11/03/12. She arrived 35 minutes late today for her one-hour appointment. TIME SPENT WITH PATIENT and her boyfriend Minutes of Eraw-zq-Xadr Counseling: Over 30 minutes in direct, ftvd-oa-wdyv counseling and coordination of care. No examination was performed due to her being quite late for this second opinion. HISTORY OF PRESENT ILLNESS This is a very nice 38-year-old woman sent for a formal consultation and a second opinion in gastroenterology. In brief, symptoms of constipation date back to age 14; these symptoms have progressed over the last 24 years. The longest she has been without a bowel movement is three weeks. At present, she has a bowel movement every 7 to 10 days. She has minimal urge to have a bowel movement and has significantstraining at stool. She has difficulty evacuating stool. A recent colonoscopy by Dr. Hadley was normal, as was a colonoscopy in October 2002. She has not had other specialized testing. Trials of fiber, MiraLAX, Amitiza have not been beneficial. Zelnorm in the past was helpful. The second issue is that of reflux. Again, she states that she has had symptoms since her teenage years. She describes substernal burning and regurgitation. Upper endoscopy on 02/19/05 was normal. Shehas not had any specialized testing; she has tried multiple medications, but despite using them once or twice daily, has persistent symptoms of burning and regurgitation. On brief further review, there are no complaints of odynophagia or dysphagia to liquids or solids. Her weight has been stable. She has never had a documented ulcer or hepatitis. She had pancreatitis secondary to alcohol abuse in 2004. In terms of overall health issues, a 10-point review of systems was positive for a distant history of alcohol abuse, a history of narcotic abuse, ongoing tobacco abuse. She has had problems with anxiety and depression. She has been diagnosed with ADD. There is a history of herpes. There are no known chronic diseases involving the heart or kidneys. ALLERGIES/ADR See eD-H; reviewed. MEDICATIONS See eD-H; reviewed. PAST MEDICAL HISTORY 1. Anxiety. 2. Depression. 3. ADD. 4. History of narcotic abuse - treated with Suboxone. 5. History of pancreatitis 2004 secondary to alcohol. 6. Tobacco abuse. 7. RYAN. 8. Constipation. 9. Mild asthma. PAST SURGICAL HISTORY 1. Laparoscopy x2 - normal by report; . 2. Cholecystectomy 03/18/05:. SOCIAL HISTORY Lives with boyfriend of eight years; two children who are healthy. HABITS Positive tobacco - 1/2 to 1 pack per day. No alcohol since 2007. FAMILY HISTORY No first-degree family member with IBD, celiac disease, or GI malignancy. History of alcohol abuse and drug abuse in parents. History of psychiatric disorders in parents. RECENT TESTING 1. Colonoscopy 10/2002: normal. 2. EGD 02/19/05: normal. 3. Colonoscopy May 2013, Dr. Hadley: normal. MEDICATION/DIET TRIALS 1. Fiber - no help with constipation. 2. Amitiza - no help with constipation. 3. Colchicine - no help with constipation. 4. MiraLAX up to 6 capfuls per day - no help with constipation. 5. Tegaserod - helped constipation. 6. Dexilant - no help with GERD. 7. Omeprazole - no help with GERD. 8. Nexium - no help with GERD. 9. Prevacid b.i.d. - some help with GERD. IMPRESSION/RECOMMENDATIONS 1. Constipation. Symptoms likely represent overlapping mild colonic inertia and pelvic floor dysfunction. She does not have urinary symptoms, but does have some symptoms of painful intercourse which oftentimes goes hand in hand with pelvic floor dysfunction. We will have her return here for anorectal manometry and balloon expulsion. If that is normal and symptoms persist, then MR defecography. For the next month, she will get up each morning, drink a large mug of tea, have routine, scheduled bathroom time, and then use a Dulcolax suppository. 2. RYAN. Lifestyle modifications emphasized. Continue Prevacid but decrease to once daily. Return here for esophageal manometry with EGD and zgzne-rqhxa-loge wireless pH capsule on daily Prevacid. 3. Follow up with PCP for medical and psychological issues. 4. She is working with her counselor to decrease her dose of Suboxone and, over the last two years,has decreased from approximately 20 mg a day to her current dose of 6 mg per day. Obviously, the goal is to eventually get her off all Suboxone. Although obvious, the patient should never be treated with narcotics given her addictive personality. 5. Followup in three months. Sanjeev aGrrett, PhD, MD firmware manager, [facility] [employer] Section of Gastroenterology and Hepatology [facility] [place] [address] V: [phone] F: [phone] LANETTE/yesica EC/CC: PCP - staff msg copy 07/06/13 Jim Hadley MD - fax copy 07/06/13 documented in this encounter Plan of Treatment Scheduled Referrals Name Type Priority Associated Diagnoses Order Schedule Referral to Gastroenterology Outpatient Referral Routine Esophageal reflux Constipation Ordered: 07/04/2013 documented as of this encounter Visit Diagnoses Diagnosis Esophageal reflux- Primary Constipation Unspecified constipation documented in this encounter Care Teams Motor Equipment Sergeant Relationship Specialty Start Date End Date Rhiannon Dorantes MD [address] [place] [address] PCP - General 04/15/10 documented as of this encounter
--- OUTSIDE RECORDS SUMMARY | 2024-04-19 14:10 | XMS_ITS | Encounter Summary ---
Author Organization [facility] [place] [address] Care Team Providers Care Bellman Name Role Phone Rhiannon Dorantes MD Primary Care Provider [phone] Reason for Visit * Auth/Cert Specialty Diagnoses / Procedures Referred By Contac t Referred To Contact Diagnoses GERD, coord Curtis, OAM, OEM consult Procedures PRO UPPER GI ENDOSCOPY, DIAGNOSTIC EGD, UPPER GI ENDOSCOPY Referral ID Status Reason Start Date Expiration Date Visits Re quested Visits Authorized [id number] 1 1 Encounter Details Date Type Department Care Team (Latest Contact Info) Description 09/18/2015 7:00 AM EDT - 09/18/2015 9:04 AM EDT Hospital Encounter [place] [address] Sanjeev Garrett MD [facility] [place] [address] Discharge Disposition: Home Social History Tobacco Use [...] better as expected. Wednesday-Wednesday Same Day Endo [phone]-[id number] Otherwise contact [phone] and ask to speak to the marble setter helper consulting property manager Follow-up care is a eller part of [...] Still on suboxone. Stable for egd with curtis; risks explained; consent signed; see anesthesia notes; [...] 2.39) 09/18/2015 8:12 AM EDT GERD - curtis (on meds) consult Left VMs @ H # & C # to conf time & provider changes - 08/01, AC Left VMs @ H # & C # again - 08/04, AC UPPER GI ENDOSCOPY Routine 09/18/2015 7: 57 AM EDT documented in this encounter Results * Surgical Pathology Report (09/18/2015 8:27 AM EDT) Final Diagnosis [id number] ? Location: 4T; EA06; A The signing pathologist has (i) examined the relevant preparation(s) for the specimen(s) and (ii) rendered or confirmed the diagnosis(es). . ?Surgical Pathology DIAGNOSIS Stomach, ??biopsy: Gastric antral gland mucosa with mild nonspecific reactive gastropathy. Gastric fundic mucosa within normal limits. No H. pylori-like microorganism is seen. 09/18/15 AAY 09/20/15 Verified by: ? Hannah TAVERAS, Tanika Kaplan ?Pathologist ?(Electronic Signature) The attending pathologist whose [...] ng: (T2) ??ejr 09/20/2015 11:31 AM EDT [facility] GI Biopsy 09/18/2015 8:27 AM EDT 09/18/2015 8:27 AM EDT Sanjeev Garrett MD PATHOLOGY/CYTOLOGY O PERFECTO Performing Organization Address [facility] [place] [address] * Specimen to Pathology (surgical or derm) (09/18/2015 8:27 AM EDT) AP Specimen 09/18/2015 8:27 AM EDT 09/18/2015 8:27 AM EDT Narrative [facility] - 09/18/2015 8:27 AM EDT Specimen requisition ordered. ??Separate Pathology report to follow Sanjeev Garrett MD PATHOLOGY/CYTOLOGY Haja GROVE Performing Organization Address [facility] [place] [address] * UPPER GI ENDOSCOPY (09/18/2015 7:57 AM EDT) UPPER GI ENDOSCOPY [facility] Endoscopy Patient Name: Kelsey Dietz ? Procedure Date: 09/18/2015 7:57 AM ? Date of : 1975 ? Age: 40 ? Order #: [id number] ? Procedure: ? Upper GI endoscopy Indications: [...] cm from the ? incisors. ? The CURTIS capsule with delivery system was introduced ? through the mouth and advanced into the esophagus, ? such that the CURTIS pH capsule was positioned 31 cm ? from the incisors, which was 6 cm proximal to the EG ? junction. The CURTIS pH capsule was then deployed and ? [...] upper third of esophagus. ? - The CloudSway pH capsule was deployed. Recommendation: ?- Await pathology results. ? - Letter to be sent to patient and ? referring providers in 8-10 days ? - Return to primary care physician as ? previously scheduled. ? - Wireless pH capsule study being ? performed on [employer] twice daily ? Procedure Code(s): ?? --- Professional --- ? 62401, Esophagogastroduo denoscopy, ? flexible, transoral; with biopsy, ? single or multiple CPT copyright 2014 [employer]. All rights reserved. The codes documented in this report are preliminary and upon wind farm engineer review may be revised to meet current [...] Active and Recently Administered Medications Care Teams Bellman Relationship Specialty Start Date End Date Rhiannon Dorantes MD [address] [place] [address] PCP - General 04/15/10 documented as of this encounter
[2024-04-19 14:57] LABS: HCT 34.4 % (36.0-46.0); HGB 11.9 g/dL (11.2-15.7); MCH 30.9 pg (27.0-33.0); MCHC 34.6 % (32.0-36.0); MCV 89 fL (80-95); MPV 12.2 fL (8.0-11.0); Platelet Count 278 10^3/uL (130-400); RBC 3.85 10^6/uL (3.93-5.22); RDW 14.2 % (11.7-14.6); RDW-SD 46.7 fL; WBC 9.29 10^3/uL (4.4-10.8)
[2024-04-19 15:08] LABS: Hemoglobin A1C 6.1 % (<5.7)
[2024-04-19 15:20] LABS: Ferritin 49 ng/mL (8-252)
[2024-04-19 16:20] LABS: Iron 74 ug/dL (50-170)
== END 2024-04-19 14:05 | disposition home or self-care (01) ==
LOC: NCHCN 14:04
PROVIDERS: PCP Family Medicine; Visit Provider Family Medicine
DX: D64.9 Anemia, unspecified (principal); Z13.1 Encounter for screening for diabetes mellitus
CPT/HCPCS: 85027; 82728; 83036; 83540; 83550

== ENCOUNTER 2024-06-28 11:19 | Outpatient (REF) | payer MEDICAID, SELFPAY ==
--- OUTSIDE RECORDS SUMMARY | 2024-06-28 11:22 | XMS_ITS | Encounter Summary ---
Author Organization [facility] [place] [address] Care Team Providers Care Diesel Stationary Engineer Name Role Phone Rhiannon Dorantes MD Primary Care Provider [phone] Reason for Visit * Auth/Cert Specialty Diagnoses / Procedures Referred By Contac t Referred To Contact Diagnoses hx pancreatitis. Procedures PRO ENDOSCOPIC US EXAM, ESOPH UPPER EUS- ENDOSCOPIC ULTRASOUND Referral ID Status Reason Start Date Expiration Date Visits Re quested Visits Authorized [id number] 1 1 Encounter Details Date Type Department Care Team (Late st Contact Info) Description 10/01/2021 8:45 AM EDT - 10/01/2021 9:45 AM EDT Surgery [place] [address] Chan Raya MD [facility] [place] [address] UPPER EUS- ENDOSCOPIC ULTRASOUND (WRVU 3.47) Social [...] Hunter 08/19/2021 9:06 AM EDT Kelsey Dietz [id number] Diagnosis/Indication: hx pancreatitis. 1. Have you ever [...] to patient: You must have a responsible republican who will drive you to your procedure, [...] Operative Note Patient Name: Kelsey Dietz : [id number] MR#: [id number] Case Date: 10/01/2021 Surgeon: Surgeon(s) and Role: [...] 9:00 AM EDT Upper Gi Endoscopy, Biopsy ([id number]) 10/01/2021 8:50 AM EDT Acute pancreatitis, unspecified complication status, unspecified pancreatitis type Endoscopic Us Exam, Esoph ([id number]) 10/01/2021 8:50 AM EDT Acute pancreatitis, unspecified complication status, unspecified pancreatitis type UPPER EUS-ENDOSCOPIC ULTRASOUND Routine 10/01/2021 8:35 AM EDT documented in this encounter Results * Surgical Pathology Report (10/01/2021 9:00 AM EDT) Final Diagnosis [id number] ? Location: 4T; EA07; A The signing [...] Evi Verified: ??10/02/2021 14:35 ??Pathologist Performed at: ??-[facility] Dept. of Pathology, [place], [place] SPECIMEN(S) SUBMITTED A - Gastric bx r/o H-pylori, biopsy (1) CLINICAL INFORMATION Epigastric pain SPECIMEN PROCESSING A - Labeled/Fixativ e: Gastric biopsies R/O H. pylori, formalin. Quantity/Size: Two, 0.3 cm. Tissue Description: Soft, clark-pink tissues. Sections/Proces sing: Submitted en toto ??in 1 cassette labeled A1. ??pps 10/02/2021 2:35 PM EDT [facility] GI Biopsy 10/01/2021 9:00 AM EDT 10/01/2021 9:00 AM EDT Chan Raya MD PATHOLOGY/CYTOLOGY O RDERABLES [facility] [place] [place] [address] * Specimen to Pathology (10/01/2021 9:00 AM EDT) AP Specimen 10/01/2021 9:00 AM EDT 10/01/2021 9:00 AM EDT Narrative [facility] - 10/01/2021 9:00 AM EDT Specimen requisition ordered. ??Separate Pathology report to follow Chan Raya MD PATHOLOGY/CYTOLOGY O RDERABLES [facility] [place] [address] * UPPER EUS-ENDOSCOPIC ULTRASOUND (10/01/2021 8:35 AM EDT) UPPER ENDOSCOPIC ULTRASOUND [facility] Endoscopy Procedure Date: 10/01/2021 8:35 AM ? Patient Name: Kelsey Dietz ? [facility]: [id number] ? Date of : 1975 ? Age: 46 ? Order #: [id number] ? Instrument Name: [id number] ? Procedure: ? Upper EUS Indications: ? [...] head (One Major A, 2 ? minor [place]). ? - There was no sign of [...] CRNA) documented in this encounter Care Teams Diesel Stationary Engineer Relationship Specialty Start Date End Date Rhiannon Dorantes MD [facility] [address] [facility] [address] [place] [address] PCP - General 04/15/10 documented as of this encounter
--- OUTSIDE RECORDS SUMMARY | 2024-06-28 11:22 | XMS_ITS | Encounter Summary ---
[place] [address] Care Team Providers Care Pencil Inspector Name Role Phone Rhiannon Dorantes MD Primary Care Provider Encounter Details Date Type Department Care Team (Late st Contact Info) Description 06/17/2021 [place] [phone] Lida Sánchez CMA Social History Tobacco Use Types Packs/Day Years [...] on filedocumented in this encounter Care Teams Pencil Inspector Relationship Specialty Start Date End Date Rhiannon Dorantes MD [address] [place], [place] [address] PCP - General 04/15/10 documented as of this encounter
--- OUTSIDE RECORDS SUMMARY | 2024-06-28 11:22 | XMS_ITS | Encounter Summary ---
Author Organization [facility] Address [address] [place] [address] Care Team Providers Care Junior Manufacturing Engineer Name Role Phone Unavailable Primary Care Provider Unavailabl e Encounter Details Date Type Department Care Team (Late st Contact Info) Description 09/15/2005 Results Only [facility] conversion [address] [place] [address] Lucinda Mckeon, ELISSA [address] [place] [address] Social History Tobacco Use Types [...] ? KELSEY DIETZ ? Accession #: ? [id number] : ? 1975 (Age: 30) ??F ?Collect Date: ? 09/15/2005 Location: ? [facility] ? Receive Date: ? 09/16/2005 Provider: ?LUCINDA MCKEON RATING CLERK Copy to: ? Specimen/Source: ?ThinPrep Pap Test, Cervix/Endocervix, processed on PHARMAJET ThinPrep Imaging System, with manual evaluation Last [...] NIKA TORREZ 09/15/2005 09/16/2005 us Lucinda Mckeon RATING CLERK PATHOLOGY ORDERABLES Final R esult NIKA TORREZ [address] [place] [address] documented in this encounter Visit Diagnoses Not on filedocumented in this encounter
--- OUTSIDE RECORDS SUMMARY | 2024-06-28 11:22 | XMS_ITS | Encounter Summary ---
[place] [address] Care Team Providers Care Dean Of Admissions Name Role Phone Rhiannon Dorantes MD Primary Care Provider [phone] Encounter Details Date Type Department Care Team (Latest Contact Info) Description 09/23/2015 10:00 PM EDT Tech [place] [address] Sanjeev Garrett MD Gastroesophageal reflux disease, esophagitis presence not specified [...] Garrett MD - 09/29/2015 9:49 AM EDT [facility] WIRELESS pH CAPSULE STUDY AFTER UPPER ENDOSCOPY Kelsey Dietz Female, 40 y.o., 1975 , SR None PCP: Rhiannon Dorantes MECHANICAL ENGINEERING TECHNICIAN: NONE STUDY DATES: 09/18/15 to 09/20/15 INTERPRETATION DATE: 09/24/15 PROVIDER: Sanjeev [place] ([id number]) INDICATION Reflux symptoms despite medical therapy. NOTE: This study was performed on [employer] METHODS After upper endoscopy where landmarks were [...] 14.72) Day Two Calculated DeMeester Score: 38.6 Wdgyi-Ydlck-Htkh DeMeester Score (Total): 40.1 Wqkvh-Znaas-Ajyx (Total) Fraction of Time with pH Less Than 4%: 11.9% Day One Symptoms Association Probability (SAP) for Heartburn: 70% Chest pain: 0% Regurgitation: 0% Day Two SAP for Heartburn: 100% Chest pain: 0% Regurgitation: 0% Qstwg-Vtgqa-Jejn SAP for Heartburn: 95% Chest pain: 0% [...] 95% are positive. Sanjeev Garrett, PhD, MD pairer, Count Includes [facility] Chief, Section of Gastroenterology and Hepatology [facility] [place] [address] V: [phone] F: [phone] BEL/yesica EC/CC: PCP - staff msg copy 09/27/15 documented in this encounter Plan of Treatment Not on file documented as of this encounter Visit Diagnoses Diagnosis Gastroesophageal reflux disease, esophagitis presence not specified documented in this encounter Care Teams Dean Of Admissions Relationship Specialty Start Date End Date Rhiannon Dorantes MD [address] [place] [address] PCP - General 04/15/10 documented as of this encounter
--- OUTSIDE RECORDS SUMMARY | 2024-06-28 11:22 | XMS_ITS | Encounter Summary ---
Author Organization [facility] Address [address] [place] [address] Care Team Providers Care Webbing Inspector Name Role Phone Unavailable Primary Care Provider Unavailabl e Encounter Details Date Type Department Care Team (Late st Contact Info) Description 03/18/2005 Results Only [facility] - Maple conversion [address] [place] [address] Perry Hilton MD [address] [place] [address] Social History Tobacco Use Types Packs/Day Years [...] ? KELSEY DIETZ ? Accession #: ? [id number] ? : ? 1975 (Age: 29) ??F [...] staining is negative for stainable iron. ??(Dr. Theodore)/[facility] Document reviewed and electronically signed by: [...] ??No cystic duct lymph node is appreciated. ??Dispatch Machine Runner sections from the gallbladder, fundus, middle and [...] PATHOLOGY ORDERABLES Final Result NIKA TORREZ [address] [place] [address] documented in this encounter Visit Diagnoses Not on filedocumented in this encounter
--- OUTSIDE RECORDS SUMMARY | 2024-06-28 11:22 | XMS_ITS | Encounter Summary ---
[place] [address] Care Team Providers Care Engineering Mgr Name Role Phone Rhiannon Dorantes MD Primary Care Provider [phone] Reason for Visit * Auth/Cert Specialty Diagnoses / Procedures Referred By Contac t Referred To Contact Diagnoses GERD, coord Curtis, OAM, OEM consult Procedures PRO UPPER GI ENDOSCOPY, DIAGNOSTIC EGD, UPPER GI ENDOSCOPY Referral ID Status Reason Start Date Expiration Date Visits Re quested Visits Authorized [id number] 1 1 Encounter Details Date Type Department Care Team (Latest Contact Info) Description 09/18/2015 8:00 AM EDT Procedure visit [place] [address] Micha Pantoja RN Gastroesophageal reflux disease, esophagitis [...] specified documented in this encounter Care Teams Engineering Mgr Relationship Specialty Start Date End Date Rhiannon Dorantes MD [address] [place] [address] PCP - General 04/15/10 documented as of this encounter
--- OUTSIDE RECORDS SUMMARY | 2024-06-28 11:22 | XMS_ITS | Encounter Summary ---
Author Organization [facility] Address [address] [place] [address] Care Team Providers Care Laboratory Sample Carrier Name Role Phone Rhiannon Dorantes MD Primary Care Provider [phone] Encounter Details Date Type Department Care Team (Late st Contact Info) Description 10/04/2019 Lab Requisition [facility] Pathology & Laboratory Medicine - [address] [id number] Outr Resulting Lab, Provider Social History Tobacco [...] 4th Generation Negative Negative 10/05/2019 9:56 EDT [facility] Comment: If acute HIV-1 infection is suspected in a high risk ??patient, submit plasma specimen for HIV-1 RNA quantitation test. Fourth Generation assay performed on the [employer]. Blood VENOUS BLOOD / Unknown 10/04/2019 9:45 EDT 10/04/2019 21:08 EDT us Provider Outr Resulting Lab IMMUNOLOGY AND SEROL OGY ORDERABLES Final Result [facility] [address] [place] [address] documented in this encounter Visit Diagnoses Not on filedocumented in this encounter Care Teams Laboratory Sample Carrier Relationship Specialty Start Date End Date Rhiannon Dorantes MD [address] [place] [id number] PCP - General 03/28/15 documented as of this encounter
--- OUTSIDE RECORDS SUMMARY | 2024-06-28 11:22 | XMS_ITS | Encounter Summary ---
Author Organization [facility] [place] [address] Care Team Providers Care Information Technology Intern Name Role Phone Rhiannon Dorantes MD Primary Care Provider Encounter Details Date Type Department Care Team (Late st Contact Info) Description 05/05/2016 Tele[place] [phone] Shari Cochran Social History Tobacco Use Types [...] yes Patient's preferred method of communication: phone; [phone] documented in this encounter Plan of Treatment Not on file documented as of this encounter Visit Diagnoses Not on filedocumented in this encounter Care Teams Information Technology Intern Relationship Specialty Start Date End Date Rhiannon Dorantes MD [address] [place] [address] PCP - General 04/15/10 documented as of this encounter
--- OUTSIDE RECORDS SUMMARY | 2024-06-28 11:22 | XMS_ITS | Encounter Summary ---
Author Organization [facility] Address [facility] [place] [address] Care Team Providers Care Component Engineer Name Role Phone Rhiannon Dorantes MD Primary Care Provider [phone] Encounter Details Date Type Department Care Team (Latest Contact Info) Description 08/26/2022 9:30 AM EDT TH Visit (TeleHealth) [place] [address] Cathy Thomas PA [facility] [place] [address] Acute pancreatitis, unspecified complication status, unspecified pancreatitis [...] ?pancreatic head (One Major A, 2 ?minor [place]). ?- There was no sign of significant [...] history that includes Upper Gi Endoscopy, Biopsy ([id number])(N/A, 09/18/2015); Endoscopic Us Exam, Esoph ([id number]) (N/A, 10/01/2021); and Upper Gi Endoscopy, Biopsy ([id number]) (N/A, 10/01/2021). Family History: denies family history [...] I am prescribing her medications ERIS Owens [facility] [place] [address] documented in this encounter Plan of Treatment Not on file documented as of this encounter Visit Diagnoses Diagnosis Acute pancreatitis, unspecified complication status, unspecified pancreatitis type documented in this encounter Care Teams Component Engineer Relationship Specialty Start Date End Date Rhiannon Dorantes MD [address] [place] [address] PCP - General 04/15/10 documented as of this encounter
--- OUTSIDE RECORDS SUMMARY | 2024-06-28 11:22 | XMS_ITS | Encounter Summary ---
Author Organization [facility] Address [address] [place] [address] Care Team Providers Care Cutter Operator Tile Name Role Phone Unavailable Primary Care Provider Unavailabl e Encounter Details Date Type Department Care Team ([facility] st Contact Info) Description 07/04/2002 Results Only [facility] - Maple conversion [address] [place] [address] Hyacinth Lees MD [address] [place] [address] Social History Tobacco Use Types Packs/Day Years [...] ? KELSEY DIETZ ? Accession #: ? [id number] : ? 1975 (Age: 27) ??F ?Collect [...] ORDERABLES Final Resu lt NIKA TORREZ [address] [place] [address] documented in this encounter Visit Diagnoses Not on filedocumented in this encounter
--- OUTSIDE RECORDS SUMMARY | 2024-06-28 11:22 | XMS_ITS | Encounter Summary ---
Author Organization [facility] [place] [address] Care Team Providers Care Inspector Integrated Circuits Name Role Phone Rhiannon Dorantes MD Primary Care Provider [phone] Reason for Visit * Auth/Cert Specialty Diagnoses / Procedures Referred By Contac t Referred To Contact Diagnoses hx pancreatitis. Procedures PRO ENDOSCOPIC US EXAM, ESOPH UPPER EUS- ENDOSCOPIC ULTRASOUND Referral ID Status Reason Start Date Expiration Date Visits Re quested Visits Authorized [id number] 1 1 Encounter Details Date Type Department Care Team (Latest Contact Info) Description 10/01/2021 7:53 AM EDT - 10/01/2021 9:44 AM EDT Hospital Encounter [place] [address] Chan Raya MD [facility] [place] [address] Discharge Disposition: Home Social History Tobacco Use [...] Hunter 08/19/2021 9:06 AM EDT Kelsey Dietz [id number] Diagnosis/Indication: hx pancreatitis. 1. Have you ever [...] to patient: You must have a responsible libertarian who will drive you to your procedure, [...] Operative Note Patient Name: Kelsey Dietz : [id number] MR#: [id number] Case Date: 10/01/2021 Surgeon: Surgeon(s) and Role: [...] 9:00 AM EDT Upper Gi Endoscopy, Biopsy ([id number]) 10/01/2021 8:50 AM EDT Acute pancreatitis, unspecified complication status, unspecified pancreatitis type Endoscopic Us Exam, Esoph ([id number]) 10/01/2021 8:50 AM EDT Acute pancreatitis, unspecified complication status, unspecified pancreatitis type UPPER EUS-ENDOSCOPIC ULTRASOUND Routine 10/01/2021 8:35 AM EDT documented in this encounter Results * Surgical Pathology Report (10/01/2021 9:00 AM EDT) Final Diagnosis [id number] ? Location: 4T; EA07; A The signing [...] Evi Verified: ??10/02/2021 14:35 ??Pathologist Performed at: ??-[facility] [place], [place], [place] SPECIMEN(S) SUBMITTED A - Gastric bx r/o H-pylori, biopsy (1) CLINICAL INFORMATION Epigastric pain SPECIMEN PROCESSING A - Labeled/Fixativ e: Gastric biopsies R/O H. pylori, formalin. Quantity/Size: Two, 0.3 cm. Tissue Description: Soft, clark-pink tissues. Sections/Proces sing: Submitted en toto ??in 1 cassette labeled A1. ??pps 10/02/2021 2:35 PM EDT [facility] GI Biopsy 10/01/2021 9:00 AM EDT 10/01/2021 9:00 AM EDT Chan Raya MD PATHOLOGY/CYTOLOGY O PERFECTO [facility] [place] [address] * Specimen to Pathology (10/01/2021 9:00 AM EDT) AP Specimen 10/01/2021 9:00 AM EDT 10/01/2021 9:00 AM EDT Narrative [facility] - 10/01/2021 9:00 AM EDT Specimen requisition ordered. ??Separate Pathology report to follow Chan Raya MD PATHOLOGY/CYTOLOGY Haja RDALEIDABLES [facility] [place] [address] * UPPER EUS-ENDOSCOPIC ULTRASOUND (10/01/2021 8:35 AM EDT) UPPER ENDOSCOPIC ULTRASOUND [facility] Endoscopy Procedure Date: 10/01/2021 8:35 AM ? Patient Name: Kelsey Dietz ? [facility]: [id number] ? Date of : 1975 ? Age: 46 ? Order #: [id number] ? Instrument Name: [id number] ? Procedure: ? Upper EUS Indications: ? [...] head (One Major A, 2 ? minor [place]). ? - There was no sign of [...] CRNA) documented in this encounter Care Teams Inspector Integrated Circuits Relationship Specialty Start Date End Date Rhiannon Dorantes MD [address] [place] [address] PCP - General 04/15/10 documented as of this encounter
--- OUTSIDE RECORDS SUMMARY | 2024-06-28 11:22 | XMS_ITS | Encounter Summary ---
Author Organization [facility] Address [address] [place] [address] Care Team Providers Care Folder Taper Operator Name Role Phone Unavailable Primary Care Provider Unavailabl e Encounter Details Date Type Department Care Team (Late st Contact Info) Description 02/19/2005 Results Only [facility] - Maple conversion [address] [place] [address] Perry Hilton MD [address] [place] [address] Social History Tobacco Use Types Packs/Day Years [...] ? KELSEY DIETZ ? Accession #: ? [id number] ? : ? 1975 (Age: 29) ??F [...] ??Submitted entirely in one cassette. ??(Dr. Devin Claros-MANUEL)/[facility] End of Report NIKA TORREZ 02/19/2005 02/20/2005 7:1 1 EDT us Perry Hilton MD PATHOLOGY ORDERABLES Final Result NIKA TORREZ [address] [place] [address] documented in this encounter Visit Diagnoses Not on filedocumented in this encounter
--- OUTSIDE RECORDS SUMMARY | 2024-06-28 11:22 | XMS_ITS | Clinical Summary ---
Author Organization [facility] Address [address] [place] [address] Care Team Providers Care Residency Program Coordinator Name Role Phone Rhiannon Dorantes MD Primary Care Provider [phone] Social History Tobacco Use Types Packs/Day Years [...] Negative Negative 10/05/2019 10:02 EDT [facility] Blood VENOUS BLOOD / Unknown 10/04/2019 9:45 EDT 10/04/2019 21:08 EDT us Provider Outr Resulting Lab CHEMISTRY & BLOOD GA S ORDERABLES Final Result [facility] [address] [place] [address] from Last 3 Months or Most Recently Relevant to Health Maintenance Insurance MEDICAID [place] Care Teams Residency Program Coordinator Relationship Specialty Start Date End Date Rhiannon Dorantes MD [address] [place] [phone] PCP - General 03/28/15
--- OUTSIDE RECORDS SUMMARY | 2024-06-28 11:22 | XMS_ITS | Encounter Summary ---
[place] [address] Care Team Providers Care Varnish Cooker Name Role Phone Rhiannon Dorantes MD Primary Care Provider [phone] Encounter Details Date Type Department Care Team (Late st Contact Info) Description 07/21/2022 Telephone [place] [phone] Dejah Tovar Social History Tobacco Use Types [...] calls can be handled by: Any Gastro Manager Security documented in this encounter Plan of Treatment Not on file documented as of this encounter Visit Diagnoses Not on filedocumented in this encounter Care Teams Varnish Cooker Relationship Specialty Start Date End Date Rhiannon Dorantes MD [facility] [address] [place] [address] PCP - General 04/15/10 documented as of this encounter
--- OUTSIDE RECORDS SUMMARY | 2024-06-28 11:22 | XMS_ITS | Encounter Summary ---
Author Organization [facility] Address [address] [place] [address] Care Team Providers Care Head Teacher Name Role Phone Rhiannon Dorantes MD Primary Care Provider [phone] Encounter Details Date Type Department Care Team (Late st Contact Info) Description 08/21/2021 Lab Requisition [facility] Pathology & Laboratory Medicine - [address] [address] Outr Resulting Lab, Provider Social History Tobacco [...] 6.3 See Note ng/mL 08/21/2021 18:13 EDT [facility] Comment: Reference Ranges for [...] S ORDERABLES Final Result Performing Organization Address City/State/[facility] Co de Phone Number [facility] [address] [place] [address] documented in this encounter Visit Diagnoses Not on filedocumented in this encounter Care Teams Head Teacher Relationship Specialty Start Date End Date Rhiannon Dorantes MD [address] [place] [phone] PCP - General 03/28/15 documented as of this encounter
--- OUTSIDE RECORDS SUMMARY | 2024-06-28 11:22 | XMS_ITS | Encounter Summary ---
Author Organization [facility] Address [address] [place] [address] Care Team Providers Care Corporate Account Executive Name Role Phone Unavailable Primary Care Provider Unavailabl e Encounter Details Date Type Department Care Team (Late st Contact Info) Description 05/27/2009 Orders Only [facility] Laboratory Services - [facility] [address] [place] [address] Rhiannon Dorantes MD [address] [address] Social History Tobacco Use Types [...] S Final Result [facility] [address] [place] [address] * CYTOPATHOLOGY (05/27/2009 0:00 EST) Pathology Report: [...] ORDERABLES Final Resul t Performing Organization Address City/State/[facility] Co de Phone Number [facility] [address] [place] [address] documented in this encounter Visit Diagnoses Not on filedocumented in this encounter
--- OUTSIDE RECORDS SUMMARY | 2024-06-28 11:22 | XMS_ITS | Clinical Summary ---
Author Organization [facility] Address [facility] [place] [address] Care Team Providers Care Cloud Security Architect Name Role Phone Rhiannon Dorantes MD Primary Care Provider [phone] Allergies Active Allergy Reactions Criticality Noted Date [...] year) with FIT yearly 1975 Sigmoidoscopy 1975 HIV screen 1994 Hepatitis C Screening 1994 Lipid Screening 1994 Hepatitis B vaccine (0-59 yrs) (1) 1995 Pneumococcal Vaccine: At-Risk 5-49yrs (1 of 2 - PCV) 1 06/30/1994 Tetanus/Diphtheria/Pertussis Vaccines (1 - Tdap) 04/29 HPV test 2006 PAP Smear 2006 Breast Cancer Share Decision Needed 2016 Breast Cancer screening 2016 Diabetes Screening (HgbA1C or Glucose) 2016 Covid-19 Vaccine (1 - season) 2024 Influenza (Flu) vaccine (1 o f 1 - Influenza standard series) 01/23/2024 Care Teams Cloud Security Architect Relationship Specialty Start Date End Date Rhiannon Dorantes MD [facility] [address] [place] [address] PCP - General 04/15/10
--- OUTSIDE RECORDS SUMMARY | 2024-06-28 11:22 | XMS_ITS | Encounter Summary ---
Author Organization [facility] [place] [address] Care Team Providers Care Medical Science Liaison Name Role Phone Rhiannon Dorantes MD Primary Care Provider [phone] Reason for Visit * Auth/Cert Specialty Diagnoses / Procedures Referred By Contac t Referred To Contact Diagnoses hx pancreatitis. Procedures PRO ENDOSCOPIC US EXAM, ESOPH UPPER EUS- ENDOSCOPIC ULTRASOUND Referral ID Status Reason Start Date Expiration Date Visits Re quested Visits Authorized [id number] 1 1 Encounter Details Date Type Department Care Team (Late st Contact Info) Description 10/01/2021 8:47 AM EDT Anesthesia [place] [phone] Virgil Shi MD Coppola, Serena S, CRNA Anesthesia Record Procedure Summary Procedure Name [...] plan, according to the Provider Handoff Checklist. 0915 Stop Patient awake, alert, and oriented; actively conversing with staff. Spontaneous ventilation without issue. VSS. Full report given to PROFESSIONAL BENEFITS SALES CONSULTANT. Meds Name Total IV Lidocaine 100 mg Propofol 100 mg Propofol INF 110.24 mg lactated ringers infusion 400 mL * Agents Name O2 Air N2O O2 Auxiliary Flowmeter 1 * Blood No blood administrations on file. Lines, Drains, and Airways Type Details Placement Removal (RETIRED) Peripheral IV Line - Single Lumen 10/01/21; 818; metacarpal vein (top of hand), right; vgnt-lec-vdagan catheter system; 22 gauge; Sarai Rn; distraction; 10/01/21; 0935 10/01/21 08 by Desiree Sharma RN 10/01/21934 by Ying Gillespie RN documented in this [...] Post-procedure Note Patient: Kelsey Dietz Procedure Summary Date: 10/01/21 Room / Location: [facility] ENDO 3 / [facility] Anesthesia Start: 846 Anesthesia Stop: 914 Procedures: UPPER EUS- ENDOSCOPIC ULTRASOUND (N/A Trunk) [facility] ([facility]/A Tr[facility]) Diagnosis: Acute pancreatitis, unspecified complication status, unspecified pancreatitis type (hx pancreatitis.) Surgeons: Chan Raya MD Responsible Provider: Virgil Shi MD Anesthesia Type: MAC ASA Status: 2 All Anesthesia Providers: Anesthesiologist: Virgil Shi MD CLIP LOADING MACHINE ADJUSTER: Shannon Matson CRNA Vitals Value Taken Time BP Temp Pulse Resp SpO2 Pain Level Patient Location: PACU/[facility] Level of Consciousness: Awake and Alert Pain [...] BIOPSY performed by Sanjeev Garrett MD at [facility] Social History Tobacco Use ??? Smoking [...] discussed with patient who. Plan discussed with CLIP LOADING MACHINE ADJUSTER. Anesthesia Screening documented in this encounter Plan [...] mg documented in this encounter Care Teams Medical Science Liaison Relationship Specialty Start Date End Date Rhiannon Dorantes MD [facility] SHAE [facility] [address] [place] [address] PCP - General 04/15/10 documented as of this encounter
--- OUTSIDE RECORDS SUMMARY | 2024-06-28 11:22 | XMS_ITS | Encounter Summary ---
Author Organization [facility] Address [address] [place] [address] Care Team Providers Care Production Control Coordinator Name Role Phone Rhiannon Dorantes MD Primary Care Provider [phone] Encounter Details Date Type Department Care Team (Latest Contact Info) Description 10/31/2020 Lab Requisition [facility] Pathology & Laboratory Medicine - [address] [address] Rhiannon Dorantes MD [address] [place] [phone] Encounter for general adult medical examination [...] types, PCR Negative Negative 11/12/2020 15:06 EDT [facility] Comment:No E6 or E7 mRNA is detected from HPV types 16,18,31,33,35,39,45,51,52,56,58,59,66, and 68 by radio adjuster mediated amplification. Papanicolaou smear specimen (specimen) CERVIX UTERI STRUCTURE / Unknown 10/30/2020 8:20 EDT 11/11/2020 11:59 EDT us Rhiannon Dorantes MD MICROBIOLOGY - GENERAL ORDERABLE S Final Result [facility] [address] [place] [address] * PAP TEST (10/30/2020 8:20 EDT) Specimens A. Cervix and/or Endocervix , ThinPrep Imaging System with Manual Evaluation 11/12/2020 15:06 [facility] Specimen Adequacy Satisfactory for Evaluation - transformation zone component present 11/12/2020 15:06 [facility] General Categorization Negative for intraepithelial lesion or malignancy 11/12/2020 15:06 [facility] Attestation . 11/12/2020 15:06 [facility] at 1506 Clinical History See below 11/13/19 15:06 [facility] HPV The result for the Human Papillomavirus (HPV) Detection-High Risk Types is Negative. No E6 or E7 mRNA is detected from HPV types 16,18,31,33,35,39 ,45,51,52,56,58,5 9,66, and 68 by radio adjuster mediated amplification.Kimberly ting was performed on specimen [id number] and was resulted on 11/12/2020 1502 EDT by CAROLINA, LAB INSTRUMENT RESULTS IN 11/12/2020 15:06 EDT [facility] Performing Lab [facility] 11/12/2020 15:06 EDT [facility] Scanned Images 11/12/2020 15:06 EDT [facility] Papanicolaou smear specimen (specimen) CERVIX UTERI STRUCTURE / Unknown 10/30/2020 8:20 EDT 11/01/2020 16:12 EDT Rhiannon Dorantes MD PATHOLOGY ORDERABLES Final Resul t [facility] [address] [place] [address] * CHLAMYDIA/N. GONORRHOEAE AMPLIFIED RNA, THINPREP (10/30/2020 8:20 EDT) Neisseria gonorrhoeae Result Negative Negative 11/01/2020 14:23 EDT [facility] Chlamydia trachomatis Result Negative Negative 11/01/2020 14:23 EDT [facility] Papanicolaou smear specimen (specimen) CERVIX UTERI STRUCTURE / Unknown 10/30/2020 8:20 EDT 11/01/2020 8:23 EDT Rhiannon Dorantes MD MICROBIOLOGY - GENERAL ORDERABLE S Final Result [facility] [address] [place] [address] documented in this encounter Visit Diagnoses Diagnosis Encounter for general adult medical examination without abnormal findings Unspecified general medical examination Encounter for screening for malignant neoplasm of cervix Screening for malignant neoplasm of the cervix Encounter for screening for human papillomavirus (HPV) Special screening examination for human papillomavirus (HPV) documented in this encounter Care Teams Production Control Coordinator Relationship Specialty Start Date End Date Rhiannon Dorantes MD [address] [place] [phone] PCP - General 03/28/15 documented as of this encounter
--- OUTSIDE RECORDS SUMMARY | 2024-06-28 11:22 | XMS_ITS | Encounter Summary ---
Author Organization [facility] Address [address] [place] [address] Care Team Providers Care Tacking Machine Operator Name Role Phone Unavailable Primary Care Provider Unavailabl e Encounter Details Date Type Department Care Team (Late st Contact Info) Description 11/26/2006 Results Only [facility] - Maple conversion [address] [place] [address] Rhiannon Dorantes MD [address] [place] [phone] Social History Tobacco Use Types Packs/Day [...] ? KELSEY DIETZ ? Accession #: ? [id number] : ? 1975 (Age: 31) ??F ?Collect Date: ? 11/26/2006 Location: ? [facility] ? Receive Date: ? 11/29/2006 Provider: ?RHIANNON DORANTES MD Copy to: ? Specimen/Source: ?ThinPrep Pap Test, Cervix/Endocervix, processed on [employer] ThinPrep Imaging System, with manual evaluation Last [...] MD PATHOLOGY ORDERABLES Final Resul t [facility] [address] [place] [address] documented in this encounter Visit Diagnoses Not on filedocumented in this encounter
--- OUTSIDE RECORDS SUMMARY | 2024-06-28 11:22 | XMS_ITS | Encounter Summary ---
Author Organization [facility] Address [address] [place] [address] Care Team Providers Care Network Professional Name Role Phone Rhiannon Dorantes MD Primary Care Provider [phone] Encounter Details Date Type Department Care Team (Late st Contact Info) Description 10/02/2020 Lab Requisition [facility] Pathology & Laboratory Medicine - [address] [address] Rhiannon Dorantes MD [address] [phone] Other hypertrophic disorders of the [...] consistent with condyloma acuminatum. 10/03/2020 14:46 EDT [facility] Attestation By the signature below, the attending physician certifies that they have 1) personally conducted a gross and/or microscopic examination of the described specimen(s), and/or personally interpreted the results of laboratory testing of the described specimen(s), and 2) personally rendered or confirmed the above diagnosis. 10/03/2020 14:46 [facility] at 1446 Microscopic Description A. [...] perinuclear vacuolization and nuclear hyperchromasia. 10/03/2020 14:46 [facility] Clinical History A. 6 mm verrucous lesion consistent with wart vs SCCA, right forearm; present 1 year; B. Skin tag vs HPV warts, vaginal area; clinical diagnosis code: L91.8 10/03/2020 14:46 [facility] Gross Description A. Received in [...] B1. ERIS NELSON(ASCP) 10/03/2020 7:29 10/03/2020 14:46 [facility] Performing Lab [facility] 10/03/2020 14:46 [facility] Scanned Images 10/03/2020 14:46 EDT [facility] Tissue TISSUE SPECIMEN FROM SKIN / Unknown 10/02/2020 9:00 EDT 10/02/2020 22:41 EDT Tissue specimen (specimen) SPECIMEN FROM SKIN / Unknown 10/02/2020 9:00 EDT 10/02/2020 22:41 EDT us Rhiannon Dorantes MD PATHOLOGY ORDERABLES Final Resul t [facility] [address] [place] [address] documented in this encounter Visit Diagnoses Diagnosis Other hypertrophic disorders of the skin documented in this encounter Care Teams Network Professional Relationship Specialty Start Date End Date Rhiannon Dorantes MD [address] [place] [phone] PCP - General 03/28/15 documented as of this encounter
--- OUTSIDE RECORDS SUMMARY | 2024-06-28 11:22 | XMS_ITS | Encounter Summary ---
Author Organization [facility] [place] [address] Care Team Providers Care Wireless Sales Representative Name Role Phone Rhiannon Dorantes MD Primary Care Provider [phone] Encounter Details Date Type Department Care Team (Late st Contact Info) Description 2021 Ancillary Procedure Radiology Library at [facility] [place] [phone] Rhiannon Dorantes MD [facility] [place] [address] [place] [address] Social History Tobacco Use Types Packs/Day Years [...] IMG FILM LIBRARY ORD ERABLES [facility] [place], [place] documented in this encounter Visit Diagnoses Not on filedocumented in this encounter Care Teams Wireless Sales Representative Relationship Specialty Start Date End Date Rhiannon Dorantes MD [address] [place] [address] [address] [place] [address] PCP - General 04/15/10 documented as of this encounter
--- OUTSIDE RECORDS SUMMARY | 2024-06-28 11:22 | XMS_ITS | Referral Summary ---
Author Organization [facility] Address [address] [place] [address] Care Team Providers Care Communication Center Operator Name Role Phone Rhiannon Dorantes MD Primary Care Provider [phone] Social History Tobacco Use Types Packs/Day Years [...] C Antibody Negative Negative 10/05/2019 10:02 EDT [facility] Blood VENOUS BLOOD / Unknown 10/04/2019 9:45 EDT 10/04/2019 21:08 EDT us Provider Outr Resulting Lab CHEMISTRY & BLOOD GA S ORDERABLES Final Result [facility] [address] [place] [address] from Last 3 Months or Most Recently Relevant to Health Maintenance Insurance MEDICAID [place] Care Teams Communication Center Operator Relationship Specialty Start Date End Date Rhiannon Dorantes MD [address] [place] [phone] PCP - General 03/28/15
--- OUTSIDE RECORDS SUMMARY | 2024-06-28 11:22 | XMS_ITS | Encounter Summary ---
Author Organization [facility] Address [address] [place] [address] Care Team Providers Care Director Network Development Name Role Phone Unavailable Primary Care Provider Unavailabl e Encounter Details Date Type Department Care Team ([facility] st Contact Info) Description 10/16/2003 Results Only [facility] - Maple conversion [address] [place] [address] Hyacinth Lees MD [address] [place] [address] Social History Tobacco Use Types Packs/Day Years [...] ? KELSEY DIETZ ? Accession #: ? [id number] : ? 1975 (Age: 28) ??F ?Collect [...] Final Resu lt [facility] [address] [place] [address] documented in this encounter Visit Diagnoses Not on filedocumented in this encounter
--- OUTSIDE RECORDS SUMMARY | 2024-06-28 11:22 | XMS_ITS | Encounter Summary ---
Author Organization [facility] Address [address] [place] [address] Care Team Providers Care Nurse Practitioner Home Assessments Name Role Phone Rhiannon Dorantes MD Primary Care Provider [phone] Encounter Details Date Type Department Care Team (Late st Contact Info) Description 10/04/2019 Lab Requisition [facility] Pathology & Laboratory Medicine - [address] [id number] Outr Resulting Lab, Provider Social History Tobacco [...] Negative Negative 10/05/2019 10:02 EDT [facility] Blood VENOUS BLOOD / Unknown 10/04/2019 9:45 EDT 10/04/2019 21:08 EDT us Provider Outr Resulting Lab CHEMISTRY & BLOOD GA S ORDERABLES Final Result Performing Organization Address [facility]/State/ZIP Co de Phone Number [facility] [address] [place] [address] documented in this encounter Visit Diagnoses Not on filedocumented in this encounter Care Teams Nurse Practitioner Home Assessments Relationship Specialty Start Date End Date Rhiannon Dorantes MD [address] [place] [phone] PCP - General 03/28/15 documented as of this encounter
--- OUTSIDE RECORDS SUMMARY | 2024-06-28 11:22 | XMS_ITS | Encounter Summary ---
Author Organization [facility] Address [facility] [place] [address] Care Team Providers Care International Student Counselor Name Role Phone Rhiannon Dorantes MD Primary Care Provider [phone] Reason for Visit * Consultation (Routine) - Closed Specialty Diagnoses / Procedures Referred By Contac t Referred To Contact Gastroenterology Diagnoses Personal history of other diseases of the digestive system Unspecified abdominal pain Gastro-esophageal reflux disease without esophagitis abd pain/gerd Rhiannon Dorantes MD [facility] [address] [place] [address] [facility] Gastro [address] [place] [address] Referral ID Status Reason Start Date Expiration Date V isits Requested Visits Authorized [id number] Closed Consult, Test & Treat Connection Center PCP Updated and/or Approved 05/07/2021 05/07/2022 6 6 Encounter Details Date Type Department Care Team (Latest Contact Info) Description 06/17/2021 11:00 AM EST TH Visit (TeleHealth) [place] [address] Cathy Thomas PA [facility] [address] Acute pancreatitis, unspecified complication status, [...] VISIT Chief Complaint: Kelsey Dietz is a 46 y.o. patient referred for [...] history that includes Upper Gi Endoscopy, Biopsy (335[address])(N/A, 09/18/2015). Family History: denies family history of [...] ERIS Owens [facility] [place] [address] documented in this encounter Plan of Treatment Scheduled Orders Name Type Priority Associated Diagnoses Orde r Schedule ENDOSCOPY CASE REQUEST: UPPER EUS- ENDOSCOPIC ULTRASOUND Procedures Routine Acute Pancreatitis, Unspecified Complication Status, Unspecified Pancreatitis Type Ordered: 06/17/2021 documented as of this encounter Visit Diagnoses Diagnosis Acute pancreatitis, unspecified complication status, unspecified pancreatitis type documented in this encounter Care Teams International Student Counselor Relationship Specialty Start Date End Date Rhiannon Dorantes MD [facility] [address] [place] [address] PCP - General 04/15/10 documented as of this encounter
--- OUTSIDE RECORDS SUMMARY | 2024-06-28 11:22 | XMS_ITS | Encounter Summary ---
Author Organization [facility] Address [facility] [address] Care Team Providers Care Personal Development Educator Name Role Phone Rhiannon Dorantes MD Primary Care Provider [phone] Reason for Visit * Reason Comments Medication Refill Encounter Details Date Type Department Care Team (Late st Contact Info) Description 02/24/2022 [place] [address] Cathy Thomas PA [facility] [place] [address] Acute pancreatitis, unspecified complication status, unspecified pancreatitis [...] type documented in this encounter Care Teams Personal Development Educator Relationship Specialty Start Date End Date Rhiannon Dorantes MD [address] [place], [place] [phone] PCP - General 04/15/10 documented as of this encounter
--- OUTSIDE RECORDS SUMMARY | 2024-06-28 11:22 | XMS_ITS | Encounter Summary ---
Author Organization [facility] Address [address] [place] [address] Care Team Providers Care Sales Person Name Role Phone Rhiannon Dorantes MD Primary Care Provider [phone] Encounter Details Date Type Department Care Team (Late st Contact Info) Description 11/18/2016 Results Only [facility] [phone] Rhiannon Dorantes MD [address] [address] Social History Tobacco Use Types [...] ? KELSEY DIETZ ? Accession #: ? [id number] ? : ? 1975 (Age: 41) ??F [...] types 16,18,31,33,35, 39,45,51,52,56,58, 59,66, and 68 by urologic surgeon mediated amplification. Comments Document reviewed and electronically signed by: ? System Interface ? Report date: 12/02/2016 By the signature above, the attending physician certifies that he/she has personally conducted a gross and/or microscopic examination of the described specimens and rendered or confirmed the above diagnosis. End of Report [facility] 11/18/2016 11/20/2016 us Rhiannon Dorantes MD PATHOLOGY ORDERABLES Final Resul t [facility] [address] [place] [address] documented in this encounter Visit Diagnoses Not on filedocumented in this encounter Care Teams Sales Person Relationship Specialty Start Date End Date Rhiannon Dorantes MD [address] [place] [phone] PCP - General 03/28/15 documented as of this encounter
--- OUTSIDE RECORDS SUMMARY | 2024-06-28 11:22 | XMS_ITS | Encounter Summary ---
Author Organization [facility] Address [address] [place] [address] Care Team Providers Care Electric Arc Welder Name Role Phone Unavailable Primary Care Provider Unavailnidhi e Encounter Details Date Type Department Care Team (Late st Contact Info) Description 12/09/2012 Results Only [facility] - [facility] ([facility]) [address] [place], [place] [address] Lilia Whyte, [facility] [address] [place] [address] [place] [phone] Social History Tobacco Use Types Packs/Day Years [...] ? KELSEY DIETZ ? Accession #: ? [id number] : ? 1975 (Age: 37) ??F ?Collect Date: ? 12/09/2012 Location: ? [facility] ? Receive Date: ? 12/12/2012 Provider: ?LILIA WHYTE ELECTRICAL AND INSTRUMENTATION MANAGER Copy to: ?RANDA ROONEY MD ? Specimen/Source: [...] [facility] 12/09/2012 12/12/2012 us Lilia Whyte ELECTRICAL AND INSTRUMENTATION MANAGER PATHOLOGY ORDERABLES Final R esult [facility] [address] [place] [address] documented in this encounter Visit Diagnoses Not on filedocumented in this encounter
--- OUTSIDE RECORDS SUMMARY | 2024-06-28 11:22 | XMS_ITS | Encounter Summary ---
Author Organization [facility] Address [facility] [place] [address] Care Team Providers Care Motion Picture Projectionist Name Role Phone Rhiannon Dorantes MD Primary Care Provider [phone] Reason for Visit * Reason Comments Medication Refill Encounter Details Date Type Department Care Team (Late st Contact Info) Description 06/24/2022 Refill [place] [address] Cathy Thomas PA [facility] [place] [address] Acute pancreatitis, unspecified complication status, unspecified pancreatitis [...] type documented in this encounter Care Teams Motion Picture Projectionist Relationship Specialty Start Date End Date Rhiannon Dorantes MD [address] [place], [place] [phone] PCP - General 04/15/10 documented as of this encounter
--- OUTSIDE RECORDS SUMMARY | 2024-06-28 11:22 | XMS_ITS | Encounter Summary ---
Author Organization [facility] Address [facility] [place] [address] Care Team Providers Care Group Home Supervisor Name Role Phone Rhiannon Dorantes MD Primary Care Provider [phone] Reason for Visit * Reason Comments Medication Refill Encounter Details Date Type Department Care Team (Late st Contact Info) Description 09/27/2021 Ref[place] [address] Cathy Thomas PA [facility] [place] [address] Acute pancreatitis, unspecified complication status, unspecified pancreatitis [...] type documented in this encounter Care Teams Group Home Supervisor Relationship Specialty Start Date End Date Rhiannon Dorantes MD [address] [place], [place] [phone] PCP - General 04/15/10 documented as of this encounter
--- OUTSIDE RECORDS SUMMARY | 2024-06-28 11:23 | XMS_ITS | Encounter Summary ---
[place] [address] Care Team Providers Care Shipyard Painter Helper Name Role Phone Rhiannon Dorantes MD Primary Care Provider [phone] Reason for Visit * Auth/Cert Specialty Diagnoses / Procedures Referred By Contac t Referred To Contact Diagnoses GERD, coord [place], OAM, OEM consult Procedures PRO UPPER GI ENDOSCOPY, DIAGNOSTIC EGD, UPPER GI ENDOSCOPY Referral ID Status Reason Start Date Expiration Date Visits Re quested Visits Authorized [id number] 1 1 Encounter Details Date Type Department Care Team (Late st Contact Info) Description 09/18/2015 8:12 AM EDT Anesthesia [place] [address] Dustin Sims MD Bauernschmidt, Eric M, CRNA Anesthesia Record Procedure Summary Procedure Name [...] 08; median cubital vein left (antecubital fossa); ghpp-bjj-ymrsex catheter system; 22 gauge; 09/18/15; 0903 09/18/15 0809 by Estrella Kwan 09/18/15 0903 by Jany Prakash RN documented in this [...] Sims MD - 09/18/2015 9:42 AM EDT [facility] Department of Anesthesiology Post-procedure Note Patient: Kelsey Dietz Procedure Summary Date Anesthesia Start Anesthesia Stop Room / Location 09/18/15 0812 0832 [facility] / [facility] Procedure Diagnosis Surgeon Responsible Provider EGD WITH BIOPSY (N/A ) (GERD - cub[place] (on meds); consult; Left VMs @ H # & C # to conf time & provider changes - 08/01, ; Left VMs @ H # & C # again - 08/04, ) Sanjeev Garrett MD Manfred, Christopher S, MD All Anesthesia Providers: Anesthesiologist: Dustin Sims MD ELEMENTARY INSTRUCTIONAL COACH: Jim Hernandez CRNA Student Nurse Momd Teacher: Estrella Kwan Last (1hr) Vitals: BP Temp Pulse Resp SpO2 Patient Location: PACU/[facility] Level of Consciousness: Awake and Alert Pain [...] risks discussed with patient. Plan discussed with ELEMENTARY INSTRUCTIONAL COACH. PAT Staff Note documented in this encounter [...] mL/hr documented in this encounter Care Teams Shipyard Painter Helper Relationship Specialty Start Date End Date Rhiannon Dorantes MD [facility] [address] [facility] [address] [place] [address] PCP - General 04/15/10 documented as of this encounter
--- OUTSIDE RECORDS SUMMARY | 2024-06-28 11:23 | XMS_ITS | Encounter Summary ---
Author Organization [facility] Address [facility] [place] [address] Care Team Providers Care Honing Machine Set Up Operator Tool Name Role Phone Rhiannon Dorantes MD Primary Care Provider [phone] Reason for Referral * Surgical (Routine) - Closed Specialty Diagnoses / Procedures Referred By Contac t Referred To Contact Gastroenterology Diagnoses Esophageal reflux Constipation Severe esophageal reflux, severe constipation Procedures OAM w balloon, OEM, Curtis ON meds; EGD w propofol in this order, all on same day per Dr. Garrett. Patient: [phone] Book fup w BEL. On Suboxone between 2 and 3 mg daily. motility Sanjeev Garrett MD [facility] GASTROENTEROLOGY [place]PT. 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 No examination [...] here for esophageal manometry with EGD and etdzx-ihghn-xcme wireless pH capsule on daily Prevacid. 3. [...] personality. 5. Followup in three months. Sanjeev Garrett, PhD, MD gold layer, [facility] [employer] Section of Gastroenterology and Hepatology [facility] [place] [address] V: [phone] F: [phone] [facility]/yesica EC/CC: PCP - staff msg copy 07/06/13 Jim Hadley MD - fax copy 07/06/13 documented in this encounter Plan of Treatment Scheduled Referrals Name Type Priority Associated Diagnoses Order Schedule Referral to Gastroenterology Outpatient Referral Routine Esophageal reflux Constipation Ordered: 07/04/2013 documented as of this encounter Visit Diagnoses Diagnosis Esophageal reflux- Primary Constipation Unspecified constipation documented in this encounter Care Teams Honing Machine Set Up Operator Tool Relationship Specialty Start Date End Date Rhiannon Dorantes MD [address] [place] [address] PCP - General 04/15/10 documented as of this encounter
--- OUTSIDE RECORDS SUMMARY | 2024-06-28 11:23 | XMS_ITS | Encounter Summary ---
[place] [address] Care Team Providers Care Stitching Machine Operator Name Role Phone Rhiannon Dorantes MD Primary Care Provider [phone] Reason for Visit * Auth/Cert Specialty Diagnoses / Procedures Referred By Contac t Referred To Contact Diagnoses GERD, coord [place], OAM, OEM consult Procedures PRO UPPER GI ENDOSCOPY, DIAGNOSTIC EGD, UPPER GI ENDOSCOPY Referral ID Status Reason Start Date Expiration Date Visits Re quested Visits Authorized [id number] 1 1 Encounter Details Date Type Department Care Team (Late st Contact Info) Description 09/18/2015 8:00 AM EDT - 09/18/2015 8:30 AM EDT [place] [address] Sanjeev Garrett MD EGD WITH BIOPSY (WRVU 2.39) Social History [...] better as expected. Wednesday-Wednesday Same Day Endo [phone] Otherwise contact [phone] and ask to speak to the oil well logger workers compensation coordinator Follow-up care is a eller part of [...] Report (09/18/2015 8:27 AM EDT) Final Diagnosis [id number] ? Location: ; 06; A The signing pathologist has (i) examined [...] ng: (T2) ??ejr 09/20/2015 11:31 AM EDT [facility] GI Biopsy 09/18/2015 8:27 AM EDT 09/18/2015 8:27 AM EDT Sanjeev Garrett MD PATHOLOGY/CYTOLOGY O PERFECTO Performing Organization Address [facility] [place] [address] * Specimen to Pathology (surgical or derm) (09/18/2015 8:27 AM EDT) AP Specimen 09/18/2015 8:27 AM EDT 09/18/2015 8:27 AM EDT Narrative [facility] - 09/18/2015 8:27 AM EDT Specimen requisition ordered. ??Separate Pathology report to follow Sanjeev Garrett MD PATHOLOGY/CYTOLOGY Haja [place]OVE Performing Organization Address City/[facility] [place] [address] * UPPER GI ENDOSCOPY (09/18/2015 7:57 AM EDT) UPPER GI ENDOSCOPY [facility] Endoscopy Patient Name: Kelsey Dietz ? Procedure Date: 09/18/2015 7:57 AM ? Date of : 1975 ? Age: 40 ? Order #: [id number] ? Procedure: ? Upper GI endoscopy Indications: [...] upper third of esophagus. ? - The Reel[employer] pH capsule was deployed. Recommendation: ?- Await pathology results. ? - Letter to be sent to patient and ? referring providers in 8-10 days ? - Return to primary care physician as ? previously scheduled. ? - Wireless pH capsule study being ? performed on [employer] twice daily ? Procedure Code(s): ?? --- Professional --- ? 91902, Esophagogastroduo denoscopy, ? flexible, transoral; with biopsy, ? single or multiple CPT copyright 2014 [employer]. All rights reserved. The codes documented in this report are preliminary and upon underpresser hand review may be revised to meet current compliance requirements. Attending Participation: ? I personally performed the entire procedure. ? Sanjeev Garrett MD 09/18/2015 8:29 AM This report has been signed electronically. Number of Addenda: 0 Note Initiated On: 09/18/2015 7:57 AM [employer]OVATION 09/18/2015 7:57 AM EDT Rhiannon Dorantes MD GENERAL SURGICAL ORD ERABLES Performing Organization Address City/State/[facility] Co de Phone Number [employer] documented in this encounter Visit Diagnoses Not on filedocumented in this encounter Active and Recently Administered Medications Care Teams Stitching Machine Operator Relationship Specialty Start Date End Date Rhiannon Dorantes MD [address] [place] [address] [facility] [address] [place] [address] PCP - General 04/15/10 documented as of this encounter
--- OUTSIDE RECORDS SUMMARY | 2024-06-28 11:23 | XMS_ITS | Encounter Summary ---
Author Organization [facility] [address] Care Team Providers Care Social Contact Worker Name Role Phone Rhiannon Dorantes MD Primary Care Provider [phone] Encounter Details Date Type Department Care Team (Late st Contact Info) Description 04/13/2014 Telephone [place] [address] Dejah Weston Social History Tobacco [...] on filedocumented in this encounter Care Teams Social Contact Worker Relationship Specialty Start Date End Date Rhiannon Dorantes MD [facility] [address] [place], [place] [phone] PCP - General 04/15/10 documented as of this encounter
--- OUTSIDE RECORDS SUMMARY | 2024-06-28 11:23 | XMS_ITS | Encounter Summary ---
[place] [address] Care Team Providers Care Program And Research Coordinator Name Role Phone Rhiannon Dorantes MD Primary Care Provider [phone] Encounter Details Date Type Department Care Team (Late st Contact Info) Description 12/30/2010 [place] [phone] Nohemy Rodriguez, RN Social History Tobacco Use [...] on filedocumented in this encounter Care Teams Program And Research Coordinator Relationship Specialty Start Date End Date Rhiannon Dorantes MD [address] [place], [place] [phone] PCP - General 04/15/10 documented as of this encounter
--- OUTSIDE RECORDS SUMMARY | 2024-06-28 11:23 | XMS_ITS | Encounter Summary ---
[place] [address] Care Team Providers Care Church Organist Name Role Phone Rhiannon Dorantes MD Primary Care Provider [phone] Reason for Visit * Reason Onset Date Comments Other 08/01/2015 Phone Call to Ludwin resendiz Encounter Details Date Type Department Care Team (Late st Contact Info) Description 08/01/2015 Telephone [place] [phone] Dejah Westno Other (Phone Call to Patient) Social History Tobacco Use Types Packs/Day Years Used Date Smoking Tobacco: Never Assessed Sex and Gender Information Value Date Recorded Sex Assigned at Not on file Gender Identity Not on file Sexual Orientation Not on file documented as of this encounter Miscellaneous Notes * Telephone Encounter - Dejah Weston - 08/01/2015 12:37 PM EST Due to change in [facility]'s schedule, time of pt's Curtis/EGD had to be moved from 8:00 am to 9:00 am on 08/07/15 - date stays the same. Dr. Willis will be doing EGD in [facility]'s stead. Called pt late yesterdayafternoon to let her know this, but no answer at her home or on her cell; left vm on both. Just called her again - no answer either phone, left vm both. -bcj documented in this encounter Plan of Treatment Not on file documented as of this encounter Visit Diagnoses Not on filedocumented in this encounter Care Teams Church Organist Relationship Specialty Start Date End Date Rhiannon Dorantes MD [facility] [address] [facility] [address] [place] [address] PCP - General 04/15/10 documented as of this encounter
--- OUTSIDE RECORDS SUMMARY | 2024-06-28 11:23 | XMS_ITS | Encounter Summary ---
[place] [address] Care Team Providers Care Drawer Liner Name Role Phone Rhiannon Dorantes MD Primary Care Provider [phone] Reason for Visit * Auth/Cert Specialty Diagnoses / Procedures Referred By Contac t Referred To Contact Diagnoses GERD, coord Mendoza, OAM, OEM consult Procedures PRO UPPER GI ENDOSCOPY, DIAGNOSTIC EGD, UPPER GI ENDOSCOPY Referral ID Status Reason Start Date Expiration Date Visits Re quested Visits Authorized [id number] 1 1 Encounter Details Date Type Department Care Team (Latest Contact Info) Description 09/18/2015 7:00 AM EDT - 09/18/2015 9:04 AM EDT Hospital Encounter [place] [address] Sanjeev Garrett MD Discharge Disposition: Home Social History Tobacco Use [...] better as expected. Wednesday-Wednesday Same Day Endo [phone] Otherwise contact [phone] and ask to speak to the warp knit operator marketing operations assistant Follow-up care is a eller part of [...] Report (09/18/2015 8:27 AM EDT) Final Diagnosis [id number] ? Location: ; [facility]; A The signing pathologist has (i) examined [...] ng: (T2) ??ejr 09/20/2015 11:31 AM EDT [facility] GI Biopsy 09/18/2015 8:27 AM EDT 09/18/2015 8:27 AM EDT Sanjeev Garrett MD PATHOLOGY/CYTOLOGY O PERFECTO Performing Organization Address [facility] [place] [address] * Specimen to Pathology (surgical or derm) (09/18/2015 8:27 AM EDT) AP Specimen 09/18/2015 8:27 AM EDT 09/18/2015 8:27 AM EDT Narrative [facility] - 09/18/2015 8:27 AM EDT Specimen requisition ordered. ??Separate Pathology report to follow Sanjeev Garrett MD PATHOLOGY/CYTOLOGY [facility] Performing Organization Address [facility] [place] [address] * UPPER GI ENDOSCOPY (09/18/2015 7:57 AM EDT) UPPER GI ENDOSCOPY [facility] Endoscopy Patient Name: Kelsey Dietz ? Procedure Date: 09/18/2015 7:57 AM ? Date of : 1975 ? Age: 40 ? Order #: [id number] ? Procedure: ? Upper GI endoscopy Indications: [...] upper third of esophagus. ? - The [employer] pH capsule was deployed. Recommendation: ?- Await pathology results. ? - Letter to be sent to patient and ? referring providers in 8-10 days ? - Return to primary care physician as ? previously scheduled. ? - Wireless pH capsule study being ? performed on [employer] twice daily ? Procedure Code(s): ?? --- Professional --- ? 00541, Esophagogastroduo denoscopy, ? flexible, transoral; with biopsy, ? single or multiple CPT copyright 2014 [employer]. All rights reserved. The codes documented in this report are preliminary and upon dance hall host/hostess review may be revised to meet current compliance requirements. Attending Participation: ? I personally performed the entire procedure. ? Sanjeev Garrett MD 09/18/2015 8:29 AM This report has been signed electronically. Number of Addenda: 0 Note Initiated On: 09/18/2015 7:57 AM PROVATION 09/18/2015 7:57 AM EDT Rhiannon Dorantes MD GENERAL SURGICAL ORD ERABLES Performing Organization Address City/State/[facility] Co de Phone Number PROVATION documented in this encounter Visit Diagnoses Not on filedocumented in this encounter Active and Recently Administered Medications Care Teams Drawer Liner Relationship Specialty Start Date End Date Rhiannon Dorantes MD [facility] [address] [place] [address] PCP - General 04/15/10 documented as of this encounter
--- OUTSIDE RECORDS SUMMARY | 2024-06-28 11:23 | XMS_ITS | Encounter Summary ---
Author Organization [facility] [place] [address] Care Team Providers Care Furnace Reliner Name Role Phone Rhiannon Dorantes MD Primary Care Provider [phone] Encounter Details Date Type Department Care Team (Late st Contact Info) Description 02/22/2013 Telephone [place] [address] Eden Santizo, RN Social History Tobacco Use Types Packs/Day [...] Colonscopy last 2004- saw Dr. Bejarano at [facility] in Please advise. * Telephone [...] on filedocumented in this encounter Care Teams Furnace Reliner Relationship Specialty Start Date End Date Rhiannon Dorantes MD [address] [place] [address] PCP - General 04/15/10 documented as of this encounter
[2024-06-28 15:35] LABS: ALT 17 U/L (14-59); AST 14 U/L (15-37); Albumin 4.1 g/dL (3.4-5.0); Alkaline Phosphatase 118 U/L (46-116); Anion Gap 9.7 mmol/L (3-11); BUN 6 mg/dL (7-18); Bilirubin, Total 0.39 mg/dL (0.2-1.0); CO2 26.3 mmol/L (21.0-32.0); CREATININE 0.8 mg/dL (0.55-1.02); Calcium 9.2 mg/dL (8.5-10.1); Chloride 102 mmol/L (98-107); Estimated GFR 90.83 (mL/min/1.73m2); Glucose 112 mg/dL (74-106); Sodium 138 mmol/L (136-145)
[2024-06-28 16:16] LABS: COMMENT (LAB VIEW ONLY) 20.57 mg/dL
== END 2024-06-28 11:20 | disposition home or self-care (01) ==
LOC: NCHCN 11:19
PROVIDERS: PCP Family Medicine; Visit Provider Family Medicine
DX: I10 Essential (primary) hypertension (principal)
CPT/HCPCS: 80053; 82043; 82570